=== PATIENT | female | born 1960 | race Caucasian/White ===

== ENCOUNTER 2025-02-19 08:41 | Observation (INO) | payer OTHER, SELFPAY ==
[2025-02-19] VITALS (19 sets, daily range): BP systolic 112–172; BP diastolic 43–84; PULSE 61–95; RESP 12–25; TEMP 36.6–36.7; O2SAT 97–100; BMI 30.4
--- NOTE | ~2025-02-19 | NM_ITS ---
EXAMINATION: NM edin stress w perfusion DATE: 02/20/2025 14:53 INDICATION: Chest pain which worsens with activity TECHNIQUE: Rest images were obtained following intravenous administration of 10.0 mCi Tc99m tetrofosm in (Myoview). The patient was infused intravenously with Lexiscan (Regadenoson). Then, 33.3 mCi Tc99m tetrofosmin (Myoview) was administered intravenously, and stress images were obtained, initially in the supine position with repeat post stress images obtained in the prone position. Data was reconstru cted into short axis and horizontal and vertical long axis SPECT images. Gated SPECT images were also obtained. COMPARISON: None. FINDINGS: Moderate to severe fixed perfusion defect at the apical inferior and mid anterior segments post stress imaging obtained in the prone position. There is mild reversible ischemia at the apical a nd apical inferior segment on the prone post stress images. Additional artifactual decreased activity on the imaging obtained in the supine position at the anterobasilar, mid inferior, apical lateral, m id and basilar anterolateral segments which normalizes with prone imaging. There is normal left vent ricular chamber size with mild global hypokinesis resulting in mild to moderately decreased left vent ricular ejection fraction measuring 33%. IMPRESSION: 1. Mild reversible ischemia at the apical and apical inferior segments. 2. Moderate to severe nonreversible infarct at the apical anterior and mid anterior segments. 2. Global hypokinesis with mild to moderately decreased left ventricular ejection fraction measuring 33%. Reviewed, dictated and finalized at location A. IMPRESSION: 1. Mild reversible ischemia at the apical and apical inferior segments. 2. Moderate to severe nonreversible infarct at the apical anterior and mid ante rior segments. 2. Global hypokinesis with mild to moderately decreased left ventricular ejecti on fraction measuring 33%.
--- NOTE | ~2025-02-19 | XR_ITS ---
Clinical Indication: Chest pain PA and lateral views of the chest: Comparison: 10/14/2008 Findings: The lungs are clear, without evidence of focal consolidation or pleural effusion. Evidence of prior CABG. Bones and soft tissues are unremarkable. Impression: Clear lungs. Status post CABG. Reviewed, dictated and finalized at location . Impression: Clear lungs. Status post CABG.
--- NOTE | 2025-02-19 08:49 | ECG_ITS ---
Test Date: 2025-02-19 08:49:40 Measurements Intervals [place] Rate: 57 P: 35 VT: 215 QRS: -63 QRSD: 134 T: 105 QT: 463 QTc: 453 Interpretive Statements SINUS BRADYCARDIA WITH FIRST DEGREE AV BLOCK INTRAVENTRICULAR CONDUCTION DELAY [130+ ms QRS DURATION] POSSIBLE ANTERIOR MYOCARDIAL INFARCTION , OF INDETERMINATE AGE [30 ms Q WAVE IN V3/V4, OR R < 0.2 mV IN V4] ABNORMAL ECG Electronically Signed On 02-19-2025 13:12:16 CDT by Kevin Boss M.D.
[2025-02-19 09:07] LABS: Basophils Absolute Auto 0.1 K/mm3 (0.0-0.1); Basophils Percent Auto 1.3 % (0.2-1.2); Eosinophils Absolute Auto 0.2 K/mm3 (0-0.3); Eosinophils Percent Auto 2.3 % (0-4.4); Immature Granulocyte Absolute 0.05 K/mm3 (0.00-0.031); Immature Granulocyte Percent A 0.5 % (0-0.5); Lymphocytes Absolute Auto 2.77 K/mm3 (0.9-3.2); Lymphocytes Percent Auto 30.3 % (18.3-44.2); Mean Corpuscular HGB Conc 31.3 g/dl (32-36); Mean Platelet Volume 10.9 fl (7.4-10.4); Monocytes Absolute Auto 0.8 K/mm3 (0.1-0.6); Monocytes Percent Auto 9.1 % (2.6-8.5); Neutrophils Absolute Auto 5.2 K/mm3 (1.3-6.7); Neutrophils Percent Auto 56.5 % (45.5-73.1); Platelet Count Result 410 k/mm3 (150-375); Red Cell Distribution Width 17.6 % (11.5-14.5); White Blood Count 9.1 K/mm3 (4.5-10.0)
[2025-02-19 09:18] LABS: INR 1.3; Partial Thromboplastin Time 24.2 Seconds (22.3-36.8); Prothrombin Time 16.5 Seconds (11.1-14.7)
--- OUTSIDE RECORDS SUMMARY | 2025-02-19 09:20 | XMS_ITS | Referral Summary ---
Author Organization [facility] [id number] Address [address] [place] [address] Care Team Providers Care Tab Card Press Operator Name Role Phone Amish Stewart MD Unavailable [phone] Valerie Gastelum DO Unavailable Encounters Date Type Department Care Team Description 12/25/2024 Telephone [facility] [address] [place] [id number] Lavern Lovell NP Request Call Back from Last 3 Months Allergies Active Allergy Reactions Criticality Noted Date Comments Aspirin Rash Medium 10/21/2018 Get sick and break out, throwing up Aspirin Nausea And Vomiting Low 05/26/2014 Latex Itching Low 05/26/2014 Medications bisacodyl (DULCOLAX) 10 mg suppositoryIndic ations:constipat ion Insert 1 suppository (10 mg total) into the rectum daily as needed for constipation. 30 suppository 1 10/25/[address] (PROTONIX) 40 mg EC tablet TAKE 1 TABLET (40 MG) BY MOUTH DAILY. 90 tablet 2 05/17/20 22 Active Additional Information Patient taking differently: 40 mg oral Daily, Reported on 11/01/2024 budesonide-formo teroL (SYMBICORT) 80-4.5 mcg/actuation inhaler Inhale 2 puffs 2 (two) times a day Rinse mouth with water after use. Do not swallow. 2 each 2 09/16/20 22 Active cetirizine (ZyrTEC) 10 mg tablet TAKE 1 TABLET BY MOUTH DAILY. 30 tablet 10/17/19 23 Active senna 8.6 mg tabletIndication s:Other constipation TAKE 2 TABLETS BY MOUTH DAILY 60 tablet 12/13/19 23 Active albuterol HFA (PROVENTIL HFA,VENTOLIN HFA,PROAIR HFA) 90 mcg/actuation inhalerIndicatio ns:Chronic cough INHALE 1 TO 2 PUFFS BY MOUTH EVERY 6 HOURS NEEDED FOR SHORTNESS OF BREATH 9 g 02/04/20 23 Active atorvastatin (LIPITOR) 80 mg tablet Take 1 tablet (80 mg total) by mouth daily Active empagliflozin (JARDIANCE) 10 mg tablet Take 1 tablet (10 mg total) by mouth daily Active acetaminophen (TYLENOL) 325 mg tablet Take 2 tablets (650 mg total) by mouth every 6 (six) hours as needed for pain Active ipratropium-albu teroL (DUO-NEB) 0.5-2.5 mg/3 mL nebulizer solution Take 3 mL by nebulization every 6 (six) hours as needed for wheezing or shortness of breath Active fluticasone propionate (FLONASE) 50 mcg/actuation nasal spray Administer 1 spray into each nostril daily as needed for rhinitis Active sacubitriL-valsa rtan (ENTRESTO) 24-26 mg tabletIndication s:chronic heart failure Take 1 tablet by mouth 2 (two) times a day Active clopidogreL (PLAVIX) 75 mg tablet Take 1 tablet (75 mg total) by mouth daily Active warfarin (COUMADIN) 3 mg tablet Take 1 tablet (3 mg total) by mouth 2 (two) times a week Active warfarin (COUMADIN) 3 mg tablet Take 1.5 tablets (4.5 mg total) by mouth 5 (five) times a week Active gabapentin (NEURONTIN) 100 mg capsule Take 1 capsule (100 mg total) by mouth 2 (two) times a day Active metoprolol XL (TOPROL-XL) 25 mg extended release tablet Take 0.5 tablets (12.5 mg total) by mouth daily 15 tablet 11/04/19 25 Active furosemide (LASIX) 20 mg tablet Take 1 tablet (20 mg total) by mouth daily 30 tablet 11/05/19 25 Active Active Problems Problem Noted Date Diagnosed Date CHF due to valvular disease 11/01/2024 Controlled type 2 diabetes m ellitus without complication, without long-term current use of insulin 11/01/2024 Dyslipidemia associated with type 2 diabetes katie litus 11/01/2024 Moderate persistent asthma without complication 11/01/2024 Gastroesophageal reflux disease without esophagi tis 11/01/2024 Morbid (severe) obesity due to excess calories 1 Assessment & Plan (07/06/2022 1:29 PM CDT): Discussed diet and lifestyle modifications to help lose weight with patient Immunization due 07/06/2022 Fall at home, subsequent encounter 07/06/2022 Assessment & Plan (07/06/2022 1:32 PM CDT): Patient had fall on 06/24/2022, had injuries to left knee and leg Continues to have shoulder pain Left foot in boot Discussed rest, using ice and heat to help with pain Advised to follow-up with orthopedics as scheduled Patient has small wound on left medial foot related to boot rubbing in area, advised to keep area clean, use Neosporin and bandage, advised to seek medical attention if worsening Schizophrenia 05/03/2022 Assessment & Plan (05/03/2022 1:00 PM CDT): Patient reports hearing voices for almost all of her life, denies any previous diagnosis of schizophrenia. Referral placed for Psychiatry evaluation and treatment Memory loss 05/03/2022 Assessment & Plan (05/03/2022 1:00 PM CDT): Patient reports recent memory loss, appears likely related to Psychiatry conditions and medications however patient worried that her mother had Alzheimer's disease and would like evaluation Referral placed for Neurology evaluation Weight loss, unintentional 11/23/2021 Assessment & Plan (11/23/2021 3:22 PM WELDING TEACHER): Patient recently had fit testing for stool which was normal Will get CT chest for lung cancer screening, mammogram previously ordered, patient advised to get this done as soon as possible Will also place referral for GI evaluation Screening for lung cancer 11/23/2021 Urinary frequency 11/23/2021 Assessment & Plan (11/23/2021 3:23 PM WELDING TEACHER): Will check UA with reflex to microscopy and culture If evidence of UTI will treat as needed Screening for thyroid disorder 11/23/2021 Assessment & Plan (11/23/2021 3:29 PM WELDING TEACHER): Will get routine lab testing today Discussed importance of getting proper vaccinations with patient including COVID vaccination. Patient will think about it Advised to see Gynecology for Pap smear Fit testing negative Will get screening CT scan for lung cancer Ophthalmology referral placed for a dilated eye exam Cough 2021 Assessment & Plan (2021 5:33 PM WELDING TEACHER): Patient has chronic cough with strong history of smoking requesting evaluation of cough Will get chest x-ray today Primary hypertension 2021 Assessment & Plan (07/06/2022 1:31 PM CDT): Condition stable. Symptoms controlled Continue current treatment with losartan, patient has not been monitoring blood pressure at home, advised to monitor regularly and inform clinic if remaining high Assessment & Plan (05/03/2022 12:59 PM CDT): Condition stable. Symptoms controlled Continue current treatment with hydrochlorothiazide and losartan Assessment & Plan (11/23/2021 3:11 PM WELDING TEACHER): Patient pressure high initially on presentation. Improved after patient stayed in room for bit Advised to make blood pressure log at home, may need to adjust medications depending on results Assessment & Plan (2021 5:34 PM WELDING TEACHER): Patient has chronic hypertension controlled with losartan however has high blood pressure on evaluation today Patient advised to make blood pressure log for the next week and call with result Patient previously had worsening cough with lisinopril and did not tolerate that Will need to adjust medications depending on blood pressure log Chronic bilateral low back pain without sciatica 09/15/2021 Assessment & Plan (11/23/2021 3:24 PM WELDING TEACHER): Records from [place] reviewed patient has MRI thoracic spine with that degenerative joint disease Patient was following with Orthopedics there but would wish to establish care with someone over here Will place referral for Orthopedics over here Assessment & Plan (2021 5:30 PM WELDING TEACHER): Records sent over from [place] clinic reviewed patient has back x-rays which show mild degenerative disease however no MRI present. Discussed with patient she says she definitely had an MRI recently Will obtain records of MRI Will continue Tylenol 1 g q.8 hours p.r.n. for pain Patient advised to continue ice packs as she feels these help her pain Assessment & Plan (09/15/2021 2:52 PM WELDING TEACHER): Patient has chronic lower back pain related to trauma and recently had imaging at [facility] We will obtain medical records Will start on tylenol 1 gm Q8H PRN for pain Other constipation 09/15/2021 Assessment & Plan (11/23/2021 3:10 PM WELDING TEACHER): Condition stable. Symptoms controlled Continue current treatment with senna and MiraLax Assessment & Plan (09/15/2021 2:51 PM WELDING TEACHER): Chronic constipation patient unable to have bowel movement unless she takes uses an enema(uses one 2 times a week) Will check thyroid function tests today Will also start on Senna 2 tablets daily and miralax daily to see if that helps her have regular bowel movements. Will likely need colonoscopy for evaluation of chronic constipation in future History of recurrent UTIs 09/15/2021 Assessment & Plan (09/15/2021 2:54 PM WELDING TEACHER): POC UA today did not show any evidence of infection Will test for UTI and treat as needed in future Thoracic radiculopathy 07/16/2021 Type 2 diabetes mellitus wit h hyperglycemia, without long-term current use of insulin 10/26/2018 Assessment & Plan (07/06/2022 1:08 PM CDT): Condition stable. Symptoms controlled Continue current treatment with glipizide Assessment & Plan (05/03/2022 12:58 PM CDT): Patient currently on glipizide, taking as directed will check HbA1c today Condition stable. Symptoms controlled Continue current treatment Assessment & Plan (11/23/2021 3:26 PM WELDING TEACHER): Condition stable. Symptoms controlled Continue current treatment with glipizide 5 mg daily Patient has significantly decreased sensation in lower extremities related to diabetes Discussed importance of proper foot care to prevent development of ulcers or infections or fractures with patient Assessment & Plan (2021 5:28 PM WELDING TEACHER): Condition stable. Symptoms controlled Continue current treatment with glipizide Will check HbA1c today Assessment & Plan (09/15/2021 2:52 PM WELDING TEACHER): Condition stable. Symptoms controlled per patient. Continue current treatment with glipizide Will get Hb A1C today Bipolar I disorder, current or most recent episode depressed, in partial remission 10/22/2018 Bipolar I disorder, current or most recent episode depressed, in partial remission 10/22/2018 Assessment & Plan (05/03/2022 12:59 PM CDT): Patient remains on medications for bipolar disorder, has not seen a psychiatrist recently, discussed importance of appropriate psychiatry evaluation patient will schedule appointment Assessment & Plan (11/23/2021 3:13 PM WELDING TEACHER): Condition stable. Symptoms controlled Continue current treatment Will place referral for Psychiatry evaluation Assessment & Plan (09/15/2021 2:47 PM WELDING TEACHER): Patient has been off medications since 2019 and is hesitant to see psychiatrist due to her previous experience with Latuda that made her confuse and she had muscle spasms as well After extensive discussion patient is willing to see psychiatrist for treatment and evaluation. Referral placed. Insomnia 11/13/2014 HLD (hyperlipidemia) 05/27/2014 Assessment & Plan (05/03/2022 12:59 PM CDT): Condition stable. Symptoms controlled Continue current treatment with atorvastatin Assessment & Plan (2021 5:31 PM WELDING TEACHER): Condition stable. Symptoms controlled without medication Will check lipid panel today Assessment & Plan (09/15/2021 3:49 PM WELDING TEACHER): Condition stable. Symptoms controlled Continue to monitor. Will check lipid panel today Resolved Problems Problem Noted Date Diagnosed Date Resolved Date Recurrent major depressive d isorder, in partial remission 11/23/2021 11/23/2021 Immunizations Immunization Administration Dates Next Due Influenza, Quadrivalent, Spl it, Intramuscular 06/26/2014 Influenza, Quadrivalent, Spl it, Preservative Free, Intramuscular 07/06/2022,06/10/2020,07/31/2019,06/13,07/14/2015 Influenza, Trivalent, IM (MDV) 07/02/2018 Influenza, Unspecified 07/02/2021 Social History Tobacco Use Types Packs/Day Years Used Date Smoking Tobacco: Former Cigarettes 1 51 Smokeless Tobacco: Never Tobacco Cessation:Counseling Given: Not Answered Comments:51 pack -father history lung cancer Alcohol Use Standard Drinks/Week Comments No 0 (1 standard drink = 0.6 oz pur e alcohol) [facility] Utilities Answer Date Recorded In the past 12 months has [employer], gas, oil, or water [employer] threatened to shut off services in your home? No 11/04/2024 Social Connection and Isolation Panel [NHANES] A nswer Date Recorded In a typical week, how many times do you talk on the phone with family, friends, or neighbors? Three times a week 11/04/2024 How often do you get togethe r with friends or relatives? Three times a week 11/04/2024 How often do you attend chur ch or tenriism services? Never 11/04/2024 Do you belong to any clubs o r organizations such as spiritism groups, unions, fraternal or athletic groups, or school groups? No 11/04/2024 How often do you attend meet ings of the clubs or organizations you belong to? Never 11/04/2024 Are you , , di vorced, , never , or living with a partner? Never 11/04/2024 AUDIT-C Answer Date Recorded Q1: How often do you have a drink containing alcohol? Never 11/04/2024 Q2: How many drinks containi ng alcohol do you have on a typical day when you are drinking? Patient does not drink Q3: How often do you have si x or more drinks on one occasion? Never 11/04/2024 Overall Financial Resource Strain (CARDIA) Answe r Date Recorded How hard is it for you to pa y for the very basics like food, housing, medical care, and heating? Not hard at all 11/04/2024 PHQ-2 Answer Date Recorded PHQ-2 Total Score (If total score is 3 or more points, staff should administer the PHQ-9) 0 05/03/2022 Hunger Vital Sign Answer Date Recorded Within the past 12 months, y ou worried that your food would run out before you got the money to buy more. Never true 11/04/19 25 Within the past 12 months, t he food you bought just didn't last and you didn't have money to get more. Never true 11/04/2024 PRAPARE - Transportation Answer Date Re corded In the past 12 months, has l ack of transportation kept you from medical appointments or from getting medications? No 11/2024 In the past 12 months, has l ack of transportation kept you from meetings, work, or from getting things needed for daily living? No 11/04/2024 Housing Stability Vital Sign Answer Gianfranco e Recorded In the last 12 months, was t here a time when you were not able to pay the mortgage or rent on time? No 11/04/2024 In the past 12 months, how m any times have you moved where you were living? 0 11/04/2024 At any time in the past 12 m [facility], were you homeless or living in a penitentiary (including now)? No 11/04/2024 Personal Safety Answer Date Recorded Have you ever been in or are you currently in a harmful physical or emotional relationship or is someone making you feel afraid or unsafe? Denies 11/01/2024 Comments No Sex and Gender Information Value Date Recorded Sex Assigned at Not on file Legal Sex Female 12:54 AM WELDING TEACHER Gender Identity Not on file Sexual Orientation Not on file Last Filed Vital Signs Vital Sign Reading Time Taken Comments Blood Pressure 129/79 11/04/2024 12:30 PM WELDING TEACHER Pulse 59 11/04/2024 12:30 PM WELDING TEACHER Temperature 36.4 C (97.6 F) 11/04/2024 12:30 PM WELDING TEACHER Respiratory Rate 18 11/04/2024 12:30 PM WELDING TEACHER Oxygen Saturation 94% 11/04/2024 12:30 PM WELDING TEACHER Inhaled Oxygen Concentration - - Weight 74.4 kg (164 lb 0.4 oz) 11/01/2024 12:40 AM WELDING TEACHER Height 160 cm (5' 3 ) 11/01/2024 12:40 AM WELDING TEACHER Body Mass Index 29.06 11/01/2024 12:40 AM WELDING TEACHER Plan of Treatment Not on file Procedures Procedure Name Priority Date/Time Associated Diagnosis Comments EGFR Routine 11/04/2024 1:32 AM WELDING TEACHER HEMOGLOBIN A1C Routine 05/03/2022 11:08 AM CDT Hypertension associated with diabetes (HCC) Type 2 diabetes mellitus with hyperglycemia, without long-term current use of insulin (HCC) LIPID PANEL Routine 05/03/2022 11:08 AM CDT Hypertension associated with diabetes (HCC) Type 2 diabetes mellitus with hyperglycemia, without long-term current use of insulin (HCC) HEPATITIS C ANTIBODY Routine 12/22/2021 10:50 AM CDT Need for hepatitis C screening test Encounter for preventive care ALBUMIN CREATININE RATIO, URINE Routine 11/23/2021 3:00 PM WELDING TEACHER Weight loss, unintentional from Last 3 Months or Most Recently Relevant to Health Maintenance Results * (ABNORMAL) eGFR (11/04/2024 1:32 AM WELDING TEACHER) eGFR 54(L) >=60 mL/min/1. 73 m2 Comment: Interpretive Data Reference Interval Normal >/= 90 mL/min/1.73m2 Mildly decreased* 60 - 89 mL/min/1.73m2 Mildly to moderately decreased 45 - 59 mL/min/1.73m2 Moderately to severely decreased 30 - 44 mL/min/1.73m2 Severely decreased 15 - 29 mL/min/1.73m2 Kidney Failure < 15 mL/min/1.73m2 *Relative to young adult level Estimated glomerular filtration rate is determined by the 2020 CKD-EPI equation recommended by the National Kidney Foundation (A Unifying Approach to GFR Estimation: Recommendations of the NKF-ASK Task Force on Reassessing the Inclusion of Race in Diagnosing Kidney Disease, JASN 202). The CKD-EPI equation should not be used for patients with unstable renal function and has not been validated in children and those over 70. Current interpretive data was last reviewed 2021. Blood 11/04/2024 1:32 AM WELDING TEACHER 11/04/2024 2:01 AM WELDING TEACHER Becka Napoles NP LAB BLOOD ORDERABLES Final Resul t Performing Organization Address City/[facility] Co de Phone Number [facility] [address] Department [place] [address] * (ABNORMAL) Hemoglobin A1c (05/03/2022 11:08 AM CDT) Hgb A1C 5.9(H) 4.0 - 5.6 % [facility] ([place]) Estimated Average Glucose 123 mg/dL [facility] ([place]) Comment: The ADA recommends reporting an estimated Average Glucose (eAG) with all Hemoglobin A1c results using the equation derived from a study of 507 normal and diabetic adults. Minority populations were underrepresented and children were not included. (Diabetes Care 31:3432-6703, 2008). The eAG is not equivalent to a fasting glucose. Blood 05/03/2022 11:0 8 AM CDT 05/03/2022 12:15 PM CDT Mojgan Cartwright MD LAB BLOOD ORDERABLES Final Resul t [facility] ([place]) [address] Department of Laboratories [place], [place] [id number] * Lipid panel (05/03/2022 11:08 AM CDT) Pathologist [facility] Cholesterol 176 30 - 199 mg/dL [facility] ([place]) Comment: Interpretive Data Ages < or = 19 years Acceptable: <170 mg/dL Borderline high: 170-199 mg/dL High: >or= 200 mg/dL Ages > or = 20 years Desirable: <200 mg/dL Borderline high: 200-239 mg/dL High: >or= 240 mg/dL Literature References: 1. Expert Panel on Integrated Guidelines for Cardiovascular Health and Risk Reduction in Children and Adolescents. Pediatrics 2011;128:S213 2. NCEP Expert Panel. Circulation 2004;110:227 Current Interpretive Data was last revised on 2018. Triglycerides 106 <=149 mg/dL [facility] ([place]) Comment: Interpretive Data Ages < or = 9 years Acceptable: <75 mg/dL Borderline high: 75-99 mg/dL High: >or= 100 mg/dL Ages 10 to 20 years Acceptable: <90 mg/dL Borderline high: 90-129 mg/dL High: >or= 130 mg/dL Ages > or = 20 years Desirable: <150 mg/dL Borderline high: 150-199 mg/dL High: 200-499 mg/dL Very high: >or= 499 mg/dL Literature References: 1. Expert Panel on Integrated Guidelines for Cardiovascular Health and Risk Reduction in Children and Adolescents. Pediatrics 2011;128:S213 2. NCEP Expert Panel. Circulation 2004;110:227 Current Interpretive Data was last revised on 2018. HDL 54 >=40 mg/dL [facility] ([place]) Comment: Interpretive Data Ages < or = 19 years Acceptable: >45 mg/dL Borderline low: 40-45 mg/dL Low: <40 mg/dL Ages > or = 20 years Desirable: >or= 60 mg/dL Low: <40 mg/dL Literature References: 1. Expert Panel on Integrated Guidelines for Cardiovascular Health and Risk Reduction in Children and Adolescents. Pediatrics 2011;128:S213 2. NCEP Expert Panel. Circulation 2004;110:227 Current Interpretive Data was last revised on 2018. LDL, calculated 101 <=129 mg/dL [facility] ([place]) Comment: Interpretive Data Ages < or = 19 years Acceptable: <110 mg/dL Borderline high: 110-129 mg/dL High: >or= 130 mg/dL Ages > or = 20 years Optimal: <100 mg/dL Near optimal: 100-129 mg/dL Borderline high: 130-159 mg/dL High: >160 mg/dL Literature References: 1. Expert Panel on Integrated Guidelines for Cardiovascular Health and Risk Reduction in Children and Adolescents. Pediatrics 2011;128:S213 2. NCEP Expert Panel. Circulation 2004;110:227 Current Interpretive Data was last revised on 2018. Non-HDL Cholesterol 122 mg/dL [facility] ([place]) Comment: Interpretive Data Ages < or = 19 years Acceptable: <120 mg/dL Borderline high: 120-144 mg/dL High: >145 mg/dL Ages > or = 20 years When triglycerides are >200 mg/dL, Non-HDL cholesterol is a secondary target of therapy with treatment goals that are 30 mg/dL greater than the LDL cholesterol target. Literature References: 1. Expert Panel on Integrated Guidelines for Cardiovascular Health and Risk Reduction in Children and Adolescents. Pediatrics 2011;128:S213 2. NCEP Expert Panel. Circulation 2004;110:227 Current Interpretive Data was last revised on 2018. Chol/HDL ratio 3 [facility] Gabriela [facility] YANC[facility]) Blood 05/03/2022 11:0 8 AM CDT 05/03/2022 12:15 PM CDT Mojgan Cartwright MD LAB BLOOD ORDERABLES Final Resul t [facility] ([place]) [address] Department [place] [address] * Hepatitis C antibody (12/22/2021 10:50 AM CDT) Hep C Ab Nonreactive Nonreactive [facility] [place]) Comment: Interpretive Data Nonreactive: Antibodies to HCV not detected. Does NOT exclude the possibility of recent exposure to HCV. Equivocal: Equivocal for HCV antibodies. Supplemental molecular testing will be automatically performed to determine infection status in accordance with current CDC screening recommendations. Reactive: Positive for HCV antibodies. This may represent current or past HCV infection. Supplemental molecular testing will be automatically performed to determine current infection status in accordance with current CDC screening recommendations. Interpretive data was last revised on 2019. Testing performed by: [facility], [address], [place]., [address] Blood 12/22/2021 10:5 0 AM CDT 12/22/2021 6:30 PM CDT Mojgan Cartwright MD LAB MICROBIOLOGY - GENERAL ORDER JAYSON Final Result Performing Organization Address [facility]/ZIP Co de Phone Number [facility] ([place]) [address] [place] [address] Department [place] [address] * Albumin Creatinine Ratio, Urine (11/23/2021 3:00 PM WELDING TEACHER) Albumin Ur 620.0 mg/L [facility] ([place]) Comment: Interpretive Data No reference range established. Current interpretive data was last revised 2019. Creatinine Ur 240.5 mg/dL [facility] ([place]) Comment: Interpretive Data No reference range established. Current interpretive data was last revised 2019. Albumin Creatinine Ratio, Ur See Comment 1 - 29 [facility] ([place]) Comment:Unable to calculate. Urine 11/23/2021 3:00 PM WELDING TEACHER 11/23/2021 4:33 PM WELDING TEACHER Mojgan Cartwright MD LAB URINE ORDERABLES Final Resul t Performing Organization Address City/[facility]/ZIP Co de Phone Number [facility] ([place]) [address] [place] [address] Department [place] [address] from Last 3 Months or Most Recently Relevant to Health Maintenance [place] [employer] [place] [employer] [place] [facility] [employer] [place] [facility] Advance Directives For more information, please contact: [phone] * Full Code (Latest Code Status on File) Date Activated Date Inactivated Comments 11/01/2024 5:17 AM 11/04/2024 6:04 PM * Full Code Date Activated Date Inactivated Comments 10/21/2018 11:13 AM 10/25/2018 5:44 PM Care Teams Tab Card Press Operator Relationship Specialty Start Date End Date Amish Stewart MD 09/06/21 Valerie Gastelum DO [address] [facility] [address] [place] [address] Consulting Physician Cardiology 11/04/24
--- OUTSIDE RECORDS SUMMARY | 2025-02-19 09:20 | XMS_ITS | CONTINUITY OF CARE DOCUMENT ---
Author Name karina collins Address Unknown Organization [facility] Address [address] [address] [place] [address] Phone [phone] Care Team Providers Care Jinriksha Driver Name Role Phone Ramy Lopez MD Unavailable [phone] PRATIBHA FARAH MD Unavailable NHUNG DUMONT, MICHELLE Unavailable Unavailable INSURANCE PROVIDERS Payer name Policy type / Coverage type [place] [employer] [place] [employer] Medicaid [id number]
--- OUTSIDE RECORDS SUMMARY | 2025-02-19 09:20 | XMS_ITS | Clinical Summary ---
Author Organization [facility] [id number] Address [address] [place] [address] Care Team Providers Care Medical Doctor Md/Medical Director Name Role Phone Amish Stewart MD Unavailable [phone] Valerie Gastelum DO Unavailable [phone] Allergies Active Allergy Reactions Criticality Noted Date [...] 11/23/2021 Assessment & Plan (11/23/2021 3:22 PM PUBLIC SAFETY DISPATCHER): Patient recently had fit testing for stool which was normal Will get CT chest for lung cancer screening, mammogram previously ordered, patient advised to get this done as soon as possible Will also place referral for GI evaluation Screening for lung cancer 11/23/2021 Urinary frequency 11/23/2021 Assessment & Plan (11/23/2021 3:23 PM PUBLIC SAFETY DISPATCHER): Will check UA with reflex to microscopy and culture If evidence of UTI will treat as needed Screening for thyroid disorder 11/23/2021 Assessment & Plan (11/23/2021 3:29 PM PUBLIC SAFETY DISPATCHER): Will get routine lab testing today Discussed importance of getting proper vaccinations with patient including COVID vaccination. Patient will think about it Advised to see Gynecology for Pap smear Fit testing negative Will get screening CT scan for lung cancer Ophthalmology referral placed for a dilated eye exam Cough 2021 Assessment & Plan (2021 5:33 PM PUBLIC SAFETY DISPATCHER): Patient has chronic cough with strong history [...] losartan Assessment & Plan (11/23/2021 3:11 PM PUBLIC SAFETY DISPATCHER): Patient pressure high initially on presentation. Improved after patient stayed in room for bit Advised to make blood pressure log at home, may need to adjust medications depending on results Assessment & Plan (2021 5:34 PM PUBLIC SAFETY DISPATCHER): Patient has chronic hypertension controlled with losartan [...] 09/15/2021 Assessment & Plan (11/23/2021 3:24 PM PUBLIC SAFETY DISPATCHER): Records from [place] reviewed patient has MRI thoracic spine with that degenerative joint disease Patient was following with Orthopedics there but would wish to establish care with someone over here Will place referral for Orthopedics over here Assessment & Plan (2021 5:30 PM PUBLIC SAFETY DISPATCHER): Records sent over from [facility] reviewed patient has back x-rays which show mild degenerative disease however no MRI present. Discussed with patient she says she definitely had an MRI recently Will obtain records of MRI Will continue Tylenol 1 g q.8 hours p.r.n. for pain Patient advised to continue ice packs as she feels these help her pain Assessment & Plan (09/15/2021 2:52 PM PUBLIC SAFETY DISPATCHER): Patient has chronic lower back pain related to trauma and recently had imaging at [facility] We will obtain medical records Will start on tylenol 1 gm Q8H PRN for pain Other constipation 09/15/2021 Assessment & Plan (11/23/2021 3:10 PM PUBLIC SAFETY DISPATCHER): Condition stable. Symptoms controlled Continue current treatment with senna and MiraLax Assessment & Plan (09/15/2021 2:51 PM PUBLIC SAFETY DISPATCHER): Chronic constipation patient unable to have bowel [...] 09/15/2021 Assessment & Plan (09/15/2021 2:54 PM PUBLIC SAFETY DISPATCHER): POC UA today did not show any [...] treatment Assessment & Plan (11/23/2021 3:26 PM PUBLIC SAFETY DISPATCHER): Condition stable. Symptoms controlled Continue current treatment with glipizide 5 mg daily Patient has significantly decreased sensation in lower extremities related to diabetes Discussed importance of proper foot care to prevent development of ulcers or infections or fractures with patient Assessment & Plan (2021 5:28 PM PUBLIC SAFETY DISPATCHER): Condition stable. Symptoms controlled Continue current treatment with glipizide Will check HbA1c today Assessment & Plan (09/15/2021 2:52 PM PUBLIC SAFETY DISPATCHER): Condition stable. Symptoms controlled per patient. Continue [...] appointment Assessment & Plan (11/23/2021 3:13 PM PUBLIC SAFETY DISPATCHER): Condition stable. Symptoms controlled Continue current treatment Will place referral for Psychiatry evaluation Assessment & Plan (09/15/2021 2:47 PM PUBLIC SAFETY DISPATCHER): Patient has been off medications since 2019 [...] atorvastatin Assessment & Plan (2021 5:31 PM PUBLIC SAFETY DISPATCHER): Condition stable. Symptoms controlled without medication Will check lipid panel today Assessment & Plan (09/15/2021 3:49 PM PUBLIC SAFETY DISPATCHER): Condition stable. Symptoms controlled Continue to monitor. Will check lipid panel today Resolved Problems Problem Noted Date Diagnosed Date Resolved Date Recurrent major depressive d celestino, in partial remission 11/23/2021 11/23/2021 Encounters Date Type Department Care Team Description 12/25/2024 Telephone [facility] [address] [place] [phone] Lavern Lovell NP Request Call Back from Last 3 Months Immunizations Immunization Administration Dates Next Due Influenza, Quadrivalent, Spl it, Intramuscular 06/26/2014 Influenza, Quadrivalent, Spl it, Preservative Free, Intramuscular 07/06/2022,06/10/2020,07/31/2019,06/13,07/14/2015 Influenza, Trivalent, IM (MDV) 07/02/2018 Influenza, Unspecified 07/02/2021 Surgical History Surgery Date Site/Laterality Comments MASTECTOMY Left FINGER SURGERY MOLE REMOVAL BREAST LUMPECTOMY Left HYSTERECTOMY Medical History Medical History Date Comments Bipolar disorder (HCC) Cancer (HCC) hx left ovary ca ncer (removed) Anxiety Bulimia nervosa used to have, no t anymore Chronic pain disorder Head injury used to fall lorna n stairs a lot Peripheral neuropathy Panic attack PTSD (post-traumatic stress disorder) Sleep difficulties Substance abuse (HCC) only timmiguel migdaliamelyssa Suicide attempt (HCC) overdoses DM (diabetes mellitus) (HCC) Hyperlipidemia Depression Hypertension Obesity Schizophrenia (HCC) 05/03/2022 Memory loss 05/03/2022 Family History Medical History Relation Name Comments Alcohol abuse Father Depression Mother Bipolar disorder Other Bipolar disorder Sister Relation Name Status Comments Father Mother Other Sister Social History Tobacco Use Types Packs/Day Years Used Date Smoking Tobacco: Former Cigarettes 1 51 Smokeless Tobacco: Never Tobacco Cessation:Counseling Given: Not Answered Comments:51 pack -father history lung cancer Alcohol Use Standard Drinks/Week Comments No 0 (1 standard drink = 0.6 oz pur e alcohol) [facility] Utilities Answer Date Recorded In the past 12 months has th e electric, gas, oil, or water company threatened to shut off services in your [...] often do you attend chur ch or nondenominational services? Never 11/04/2024 Do you belong to any clubs o r organizations such as yazidism groups, unions, fraternal or athletic groups, or [...] any time in the past 12 m [facility], were you homeless or living in a alf (including now)? No 11/04/2024 Personal Safety Answer Date Recorded Have you ever been in or are you currently in a harmful physical or emotional relationship or is someone making you feel afraid or unsafe? Denies 11/01/2024 Comments No Sex and Gender Information Value Date Recorded Sex Assigned at Not on file Legal Sex Female 12:54 AM PUBLIC SAFETY DISPATCHER Gender Identity Not on file Sexual Orientation Not on file Obstetrics History Last Filed Vital Signs Vital Sign Reading Time Taken Comments Blood Pressure 129/79 11/04/2024 12:30 PM PUBLIC SAFETY DISPATCHER Pulse 59 11/04/2024 12:30 PM PUBLIC SAFETY DISPATCHER Temperature 36.4 C (97.6 F) 11/04/2024 12:30 PM PUBLIC SAFETY DISPATCHER Respiratory Rate 18 11/04/2024 12:30 PM PUBLIC SAFETY DISPATCHER Oxygen Saturation 94% 11/04/2024 12:30 PM PUBLIC SAFETY DISPATCHER Inhaled Oxygen Concentration - - Weight 74.4 kg (164 lb 0.4 oz) 11/01/2024 12:40 AM PUBLIC SAFETY DISPATCHER Height 160 cm (5' 3 ) 11/01/2024 12:40 AM PUBLIC SAFETY DISPATCHER Body Mass Index 29.06 11/01/2024 12:40 AM PUBLIC SAFETY DISPATCHER Plan of Treatment Health Maintenance Due Date Last Done Comments Colon Cancer Screening-Colonoscopy 1960 Osteoporosis Screening-Bone Density Scan 1960 Dilated Eye Exam 1958 DTaP/Tdap/Td Vaccine (1 - Tdap) 1969 Hepatitis B Screening 1976 Zoster Vaccine (1 of 2) 2008 Pneumococcal vaccine 65+ (2 of 2 - PCV) 09/20/2013 09/20/2012 Breast Cancer Screening-Mammogram 08/06/2015 014 Albumin Creatinine Ratio, Urine 11/23/2022 2 Foot Exam 11/23/2022 11/23/2021 Depression Screening 05/03/2023 05/03/2022, 11/23/2021, 2021, Additional history exists Well Visit 65+ 2023 11/23/2021 Influenza Vaccine (#1) 2024 , 07/02/2021, 06/10/2020, Additional history exists Hemoglobin A1C 02/04/2025 08/07/2024, 11/30, 05/03/2022, Additional history exists Lipid Panel 08/07/2025 08/07/2024, 11/2021, 12/22/2021, Additional history exists Fall Risk Assessment 11/04/2025 11/04/2024, 05/03/2022, 11/23/2021, Additional history exists eGFR 11/04/2025 11/04/2024, 11/2024, 11/02/2024, Additional history exists Hepatitis C Screening Completed 12/22/2021, 022 Procedures Procedure Name Priority Date/Time Associated Diagnosis Comments EGFR Routine 11/04/2024 1:32 AM PUBLIC SAFETY DISPATCHER HEMOGLOBIN A1C Routine 05/03/2022 11:08 AM CDT [...] CREATININE RATIO, URINE Routine 11/23/2021 3:00 PM PUBLIC SAFETY DISPATCHER Weight loss, unintentional from Last 3 Months or Most Recently Relevant to Health Maintenance Results * (ABNORMAL) eGFR (11/04/2024 1:32 AM PUBLIC SAFETY DISPATCHER) eGFR 54(L) >=60 mL/min/1. 73 m2 Comment: [...] of Race in Diagnosing Kidney Disease, JASN 2020). The CKD-EPI equation should not be used for patients with unstable renal function and has not been validated in children and those over 70. Current interpretive data was last reviewed 2021. Blood 11/04/2024 1:32 AM PUBLIC SAFETY DISPATCHER 11/04/2024 2:01 AM PUBLIC SAFETY DISPATCHER Becka Napoles NP LAB BLOOD ORDERABLES Final Resul t Performing Organization Address City/[facility]/ZIP Co de Phone Number [facility] [address] Department [place] [address] * (ABNORMAL) Hemoglobin A1c (05/03/2022 11:08 AM CDT) Hgb A1C 5.9(H) 4.0 - 5.6 % [facility] Estimated Average Glucose 123 mg/dL [facility]) Comment: The ADA recommends reporting an estimated Average Glucose (eAG) with all Hemoglobin A1c results using the equation derived from a study of 507 normal and diabetic adults. Minority populations were underrepresented and children were not included. (Diabetes Care 31:2115-3897, 2008). The eAG is not equivalent to a fasting glucose. Blood 05/03/2022 11:0 8 AM CDT 05/03/2022 12:15 PM CDT Mojgan Cartwright MD LAB BLOOD ORDERABLES Final Resul t [facility] ([place]) [address] Department [place] [address] * Lipid panel (05/03/2022 11:08 AM CDT) Cholesterol 176 30 - 199 mg/dL [facility] Comment: Interpretive Data Ages < [...] on 2018. Triglycerides 106 <=149 mg/dL [facility]) Comment: Interpretive Data Ages < [...] revised on 2018. HDL 54 >=40 mg/dL [facility] ([place]) Comment: Interpretive Data Ages < or [...] 2018. LDL, calculated 101 <=129 mg/dL [facility]) Comment: Interpretive Data Ages < [...] on 2018. Non-HDL Cholesterol 122 mg/dL [facility] Comment: Interpretive Data Ages < [...] last revised on 2018. Chol/HDL ratio 3 [facility] Gabriela [facility]) Blood 05/03/2022 11:0 8 AM CDT 05/03/2022 12:15 PM CDT us Mojgan Cartwright MD LAB BLOOD ORDERABLES Final Resul t Performing Organization Address City/State/[facility] Co de Phone Number [facility] [address] [facility] Department [place] [address] * Hepatitis C antibody (12/22/2021 10:50 AM CDT) Hep C Ab Nonreactive Nonreactive [facility] [place]) Comment: Interpretive Data Nonreactive: Antibodies to HCV [...] last revised on 2019. Testing performed by: [facility], [facility] [place]., [address] Blood 12/22/2021 10:5 0 AM CDT 12/22/2021 6:30 PM CDT Mojgan Cartwright MD LAB MICROBIOLOGY - GENERAL ORDER JAYSON Final Result Performing Organization Address [facility] de Phone Number [facility] [address] [facility] Department [place] [address] * Albumin Creatinine Ratio, Urine (11/23/2021 3:00 PM PUBLIC SAFETY DISPATCHER) Albumin Ur 620.0 mg/L [facility] Comment: Interpretive Data No reference range established. Current interpretive data was last revised 2019. Creatinine Ur 240.5 mg/dL [facility]) Comment: Interpretive Data No reference range established. Current interpretive data was last revised 2019. Albumin Creatinine Ratio, Ur See Comment 1 - 29 [facility]) Comment:Unable to calculate. Urine 11/23/2021 3:00 PM PUBLIC SAFETY DISPATCHER 11/23/2021 4:33 PM PUBLIC SAFETY DISPATCHER Mojgan Cartwright MD LAB URINE ORDERABLES Final Resul t Performing Organization Address [facility] Co de Phone Number [facility] [address] [facility] [place] [address] from Last 3 Months or Most Recently Relevant to Health Maintenance Insurance [place] [employer] [id number] [facility] [address] [facility] [address] [employer] Advance Directives For more information, please contact: [phone] * Full Code (Latest Code Status on File) Date Activated Date Inactivated Comments 11/01/2024 5:17 AM 11/04/2024 6:04 PM * Full Code Date Activated Date Inactivated Comments 10/21/2018 11:13 AM 10/25/2018 5:44 PM Care Teams Medical Doctor Md/Medical Director Relationship Specialty Start Date End Date Amish Stewart MD 09/06/21 Valerie Gastelum DO [address] [place] [address] Consulting Physician Cardiology 11/04/24
[2025-02-19] MEDS: NITROGLYCERIN SL 0.4 MG TABLET SUBLINGUAL (10:06)
--- NOTE | 2025-02-19 10:09 | PC.NURSE ---
1st nitro admin (@ 1006): HR 84 BP 121/84 Chest pain 6/10 2nd nitro admin (@ 1011): HR 92 BP 126/77 Chest pain 5/10 3rd nitro admin (@ 1016): HR 91 BP 113/73 Chest pain 3/10 5 min post 3rd nitro admin (@ 1021): HR 92 BP 117/76 Chest pain 2/10
--- OUTSIDE RECORDS SUMMARY | 2025-02-19 10:14 | XMS_ITS | Clinical Summary ---
Author Organization [facility] [address] Address [address] [place] [address] Care Team Providers Care Power Ballast Machine Operator Name Role Phone Amish Stewart MD Unavailable [phone] Valerie Gastelum DO Unavailable Allergies Active Allergy Reactions Criticality Noted Date [...] 11/23/2021 Assessment & Plan (11/23/2021 3:22 PM GREY IRON MOLDER): Patient recently had fit testing for stool which was normal Will get CT chest for lung cancer screening, mammogram previously ordered, patient advised to get this done as soon as possible Will also place referral for GI evaluation Screening for lung cancer 11/23/2021 Urinary frequency 11/23/2021 Assessment & Plan (11/23/2021 3:23 PM GREY IRON MOLDER): Will check UA with reflex to microscopy and culture If evidence of UTI will treat as needed Screening for thyroid disorder 11/23/2021 Assessment & Plan (11/23/2021 3:29 PM GREY IRON MOLDER): Will get routine lab testing today Discussed importance of getting proper vaccinations with patient including COVID vaccination. Patient will think about it Advised to see Gynecology for Pap smear Fit testing negative Will get screening CT scan for lung cancer Ophthalmology referral placed for a dilated eye exam Cough 2021 Assessment & Plan (2021 5:33 PM GREY IRON MOLDER): Patient has chronic cough with strong history [...] losartan Assessment & Plan (11/23/2021 3:11 PM GREY IRON MOLDER): Patient pressure high initially on presentation. Improved after patient stayed in room for bit Advised to make blood pressure log at home, may need to adjust medications depending on results Assessment & Plan (2021 5:34 PM GREY IRON MOLDER): Patient has chronic hypertension controlled with losartan [...] 09/15/2021 Assessment & Plan (11/23/2021 3:24 PM GREY IRON MOLDER): Records from [place] reviewed patient has MRI thoracic spine with that degenerative joint disease Patient was following with Orthopedics there but would wish to establish care with someone over here Will place referral for Orthopedics over here Assessment & Plan (2021 5:30 PM GREY IRON MOLDER): Records sent over from [facility] reviewed patient has back x-rays which show mild degenerative disease however no MRI present. Discussed with patient she says she definitely had an MRI recently Will obtain records of MRI Will continue Tylenol 1 g q.8 hours p.r.n. 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 Symptoms controlled Continue current treatment with senna and MiraLax Assessment & Plan (09/15/2021 2:51 PM GREY IRON MOLDER): Chronic constipation patient unable to have bowel [...] 09/15/2021 Assessment & Plan (09/15/2021 2:54 PM GREY IRON MOLDER): POC UA today did not show any [...] treatment Assessment & Plan (11/23/2021 3:26 PM GREY IRON MOLDER): Condition stable. Symptoms controlled Continue current treatment with glipizide 5 mg daily Patient has significantly decreased sensation in lower extremities related to diabetes Discussed importance of proper foot care to prevent development of ulcers or infections or fractures with patient Assessment & Plan (2021 5:28 PM GREY IRON MOLDER): Condition stable. Symptoms controlled Continue current treatment with glipizide Will check HbA1c today Assessment & Plan (09/15/2021 2:52 PM GREY IRON MOLDER): Condition stable. Symptoms controlled per patient. Continue [...] appointment Assessment & Plan (11/23/2021 3:13 PM GREY IRON MOLDER): Condition stable. Symptoms controlled Continue current treatment Will place referral for Psychiatry evaluation Assessment & Plan (09/15/2021 2:47 PM GREY IRON MOLDER): Patient has been off medications since 2019 [...] atorvastatin Assessment & Plan (2021 5:31 PM GREY IRON MOLDER): Condition stable. Symptoms controlled without medication Will check lipid panel today Assessment & Plan (09/15/2021 3:49 PM GREY IRON MOLDER): Condition stable. Symptoms controlled Continue to monitor. Will check lipid panel today Resolved Problems Problem Noted Date Diagnosed Date Resolved Date Recurrent major depressive d celestino, in partial remission 11/23/2021 11/23/2021 Encounters Date Type Department Care Team Description 12/25/2024 Telephone [facility] [address] [place] [phone] Lavern Lovell NP Request Call Back from [...] = 0.6 oz pur e alcohol) [facility] Utilities Answer Date Recorded In the [...] often do you attend chur ch or taoism services? Never 11/04/2024 Do you belong to any clubs o r organizations such as adventism groups, unions, fraternal or athletic groups, or [...] any time in the past 12 m [facility], were you homeless or living in a intermediate (including now)? No 11/04/2024 Personal Safety Answer Date Recorded Have you ever been in or are you currently in a harmful physical or emotional relationship or is someone making you feel afraid or unsafe? Denies 11/01/2024 Comments No Sex and Gender Information Value Date Recorded Sex Assigned at Not on file Legal Sex Female 12:54 AM GREY IRON MOLDER Gender Identity Not on file Sexual Orientation Not on file Obstetrics History Last Filed Vital Signs Vital Sign Reading Time Taken Comments Blood Pressure 129/79 11/04/2024 12:30 PM GREY IRON MOLDER Pulse 59 11/04/2024 12:30 PM GREY IRON MOLDER Temperature 36.4 C (97.6 F) 11/04/2024 12:30 PM GREY IRON MOLDER Respiratory Rate 18 11/04/2024 12:30 PM GREY IRON MOLDER Oxygen Saturation 94% 11/04/2024 12:30 PM GREY IRON MOLDER Inhaled Oxygen Concentration - - Weight 74.4 kg (164 lb 0.4 oz) 11/01/2024 12:40 AM GREY IRON MOLDER Height 160 cm (5' 3 ) 11/01/2024 12:40 AM GREY IRON MOLDER Body Mass Index 29.06 11/01/2024 12:40 AM GREY IRON MOLDER Plan of Treatment Health Maintenance Due Date [...] Diagnosis Comments EGFR Routine 11/04/2024 1:32 AM GREY IRON MOLDER HEMOGLOBIN A1C Routine 05/03/2022 11:08 AM CDT [...] CREATININE RATIO, URINE Routine 11/23/2021 3:00 PM GREY IRON MOLDER Weight loss, unintentional from Last 3 Months or Most Recently Relevant to Health Maintenance Results * (ABNORMAL) eGFR (11/04/2024 1:32 AM GREY IRON MOLDER) eGFR 54(L) >=60 mL/min/1. 73 m2 Comment: [...] last reviewed 2021. Blood 11/04/2024 1:32 AM GREY IRON MOLDER 11/04/2024 2:01 AM GREY IRON MOLDER Becka Napoles NP LAB BLOOD ORDERABLES Final Resul t Performing Organization Address City/[facility]/ZIP Co de Phone Number [facility] [address] Department [place] [address] * (ABNORMAL) Hemoglobin A1c (05/03/2022 11:08 AM CDT) Hgb A1C 5.9(H) 4.0 - 5.6 % [facility] ([place]) Estimated Average Glucose 123 mg/dL [facility] ([place]) Comment: The ADA recommends reporting an estimated Average Glucose (eAG) with all Hemoglobin A1c results using the equation derived from a study of 507 normal and diabetic adults. Minority populations were underrepresented and children were not included. (Diabetes Care 31:4746-8128, 2008). The eAG is not equivalent to a fasting glucose. Blood 05/03/2022 11:0 8 AM CDT 05/03/2022 12:15 PM CDT Mojgan Cartwright MD LAB BLOOD ORDERABLES Final Resul t [facility] ([place]) [address] Department [place] [address] * Lipid panel (05/03/2022 11:08 AM CDT) Cholesterol 176 30 - 199 mg/dL [facility] ([place]) Comment: Interpretive Data Ages < [...] revised on 2018. Triglycerides 106 <=149 mg/dL [facility] ([place]) Comment: Interpretive Data Ages < [...] revised on 2018. HDL 54 >=40 mg/dL [facility] ([place]) Comment: Interpretive Data Ages [...] on 2018. LDL, calculated 101 <=129 mg/dL [facility]) Comment: Interpretive Data Ages < [...] revised on 2018. Non-HDL Cholesterol 122 mg/dL [facility] ([place]) Comment: Interpretive Data Ages < [...] last revised on 2018. Chol/HDL ratio 3 [facility] Gabriela [facility] ([place]) Blood 05/03/2022 11:0 8 AM CDT 05/03/2022 12:15 PM CDT us Mojgan Cartwright MD LAB BLOOD ORDERABLES Final Resul t Performing Organization Address City/State/[facility] Co de Phone Number [facility] ([place]) [address] Department [place] [address] * Hepatitis C antibody (12/22/2021 10:50 AM CDT) Hep C Ab Nonreactive Nonreactive [facility] [place]) Comment: Interpretive Data Nonreactive: Antibodies [...] last revised on 2019. Testing performed by: [facility], [facility][note 3][address] [place]., [address] Blood 12/22/2021 10:5 0 AM CDT 12/22/2021 6:30 PM CDT Mojgan Cartwright MD LAB MICROBIOLOGY - GENERAL ORDER JAYSON Final Result Performing Organization Address [facility] de Phone Number [facility] ([place]) [address] Department [place] [address] * Albumin Creatinine Ratio, Urine (11/23/2021 3:00 PM GREY IRON MOLDER) Albumin Ur 620.0 mg/L IVY [facility] ([place]) Comment: Interpretive Data No reference range established. Current interpretive data was last revised 2019. Creatinine Ur 240.5 mg/dL [facility] ([place]) Comment: Interpretive Data No reference range established. Current interpretive data was last revised 2019. Albumin Creatinine Ratio, Ur See Comment 1 - 29 [facility] ([place]) Comment:Unable to calculate. Urine 11/23/2021 3:00 PM GREY IRON MOLDER 11/23/2021 4:33 PM GREY IRON MOLDER Mojgan Cartwright MD LAB URINE ORDERABLES Final Resul t Performing Organization Address [facility] Co de Phone Number [facility] [address] [place] [address] from Last 3 Months or Most Recently Relevant to Health Maintenance Insurance [place] [employer] [id number] [facility] [address] [facility] [address] [employer] Advance Directives For more information, please contact: [phone] * Full Code (Latest Code Status on File) Date Activated Date Inactivated Comments 11/01/2024 5:17 AM 11/04/2024 6:04 PM * Full Code Date Activated Date Inactivated Comments 10/21/2018 11:13 AM 10/25/2018 5:44 PM Care Teams Power Ballast Machine Operator Relationship Specialty Start Date End Date Amish Stewart MD 09/06/21 Valerie Gastelum DO [address] [facility] [address] [place] [address] Consulting Physician Cardiology 11/04/24
--- OUTSIDE RECORDS SUMMARY | 2025-02-19 10:14 | XMS_ITS | Referral Summary ---
Author Organization [facility] [address] Address [address] [place] [address] Care Team Providers Care Hook Up Driver Name Role Phone Amish Stewart MD Unavailable [phone] Valerie Gastelum DO Unavailable Encounters Date Type Department Care Team Description 12/25/2024 Telephone [facility] [address] [place] [phone] Lavern Lovell NP Request Call Back from [...] 11/23/2021 Assessment & Plan (11/23/2021 3:22 PM TYPECASTING MACHINE OPERATOR): Patient recently had fit testing for stool which was normal Will get CT chest for lung cancer screening, mammogram previously ordered, patient advised to get this done as soon as possible Will also place referral for GI evaluation Screening for lung cancer 11/23/2021 Urinary frequency 11/23/2021 Assessment & Plan (11/23/2021 3:23 PM TYPECASTING MACHINE OPERATOR): Will check UA with reflex to microscopy and culture If evidence of UTI will treat as needed Screening for thyroid disorder 11/23/2021 Assessment & Plan (11/23/2021 3:29 PM TYPECASTING MACHINE OPERATOR): Will get routine lab testing today Discussed importance of getting proper vaccinations with patient including COVID vaccination. Patient will think about it Advised to see Gynecology for Pap smear Fit testing negative Will get screening CT scan for lung cancer Ophthalmology referral placed for a dilated eye exam Cough 2021 Assessment & Plan (2021 5:33 PM TYPECASTING MACHINE OPERATOR): Patient has chronic cough with strong history [...] losartan Assessment & Plan (11/23/2021 3:11 PM TYPECASTING MACHINE OPERATOR): Patient pressure high initially on presentation. Improved after patient stayed in room for bit Advised to make blood pressure log at home, may need to adjust medications depending on results Assessment & Plan (2021 5:34 PM TYPECASTING MACHINE OPERATOR): Patient has chronic hypertension controlled with losartan [...] 09/15/2021 Assessment & Plan (11/23/2021 3:24 PM TYPECASTING MACHINE OPERATOR): Records from [place] reviewed patient has MRI thoracic spine with that degenerative joint disease Patient was following with Orthopedics there but would wish to establish care with someone over here Will place referral for Orthopedics over here Assessment & Plan (2021 5:30 PM TYPECASTING MACHINE OPERATOR): Records sent over from [place] [facility] reviewed patient has back x-rays which show mild degenerative disease however no MRI present. Discussed with patient she says she definitely had an MRI recently Will obtain records of MRI Will continue Tylenol 1 g q.8 hours p.r.n. for pain Patient advised to continue ice packs as she feels these help her pain Assessment & Plan (09/15/2021 2:52 PM TYPECASTING MACHINE OPERATOR): Patient has chronic lower back pain related to trauma and recently had imaging at [facility] We will obtain medical records Will start on tylenol 1 gm Q8H PRN for pain Other constipation 09/15/2021 Assessment & Plan (11/23/2021 3:10 PM TYPECASTING MACHINE OPERATOR): Condition stable. Symptoms controlled Continue current treatment with senna and MiraLax Assessment & Plan (09/15/2021 2:51 PM TYPECASTING MACHINE OPERATOR): Chronic constipation patient unable to have bowel [...] 09/15/2021 Assessment & Plan (09/15/2021 2:54 PM TYPECASTING MACHINE OPERATOR): POC UA today did not show any [...] treatment Assessment & Plan (11/23/2021 3:26 PM TYPECASTING MACHINE OPERATOR): Condition stable. Symptoms controlled Continue current treatment with glipizide 5 mg daily Patient has significantly decreased sensation in lower extremities related to diabetes Discussed importance of proper foot care to prevent development of ulcers or infections or fractures with patient Assessment & Plan (2021 5:28 PM TYPECASTING MACHINE OPERATOR): Condition stable. Symptoms controlled Continue current treatment with glipizide Will check HbA1c today Assessment & Plan (09/15/2021 2:52 PM TYPECASTING MACHINE OPERATOR): Condition stable. Symptoms controlled per patient. Continue [...] appointment Assessment & Plan (11/23/2021 3:13 PM TYPECASTING MACHINE OPERATOR): Condition stable. Symptoms controlled Continue current treatment Will place referral for Psychiatry evaluation Assessment & Plan (09/15/2021 2:47 PM TYPECASTING MACHINE OPERATOR): Patient has been off medications since 2019 [...] atorvastatin Assessment & Plan (2021 5:31 PM TYPECASTING MACHINE OPERATOR): Condition stable. Symptoms controlled without medication Will check lipid panel today Assessment & Plan (09/15/2021 3:49 PM TYPECASTING MACHINE OPERATOR): Condition stable. Symptoms controlled Continue to monitor. [...] drink = 0.6 oz pur e alcohol) [facility] Utilities Answer Date Recorded In the past 12 months has Don[employer], gas, oil, or water [employer] threatened to shut off services in your [...] often do you attend chur ch or pentecostalism services? Never 11/04/2024 Do you belong to any clubs o r organizations such as amish groups, unions, fraternal or athletic groups, or [...] any time in the past 12 m [facility], were you homeless or living in a prison (including now)? No 11/04/2024 Personal Safety Answer Date Recorded Have you ever been in or are you currently in a harmful physical or emotional relationship or is someone making you feel afraid or unsafe? Denies 11/01/2024 Comments No Sex and Gender Information Value Date Recorded Sex Assigned at Not on file Legal Sex Female 12:54 AM TYPECASTING MACHINE OPERATOR Gender Identity Not on file Sexual Orientation Not on file Last Filed Vital Signs Vital Sign Reading Time Taken Comments Blood Pressure 129/79 11/04/2024 12:30 PM TYPECASTING MACHINE OPERATOR Pulse 59 11/04/2024 12:30 PM TYPECASTING MACHINE OPERATOR Temperature 36.4 C (97.6 F) 11/04/2024 12:30 PM TYPECASTING MACHINE OPERATOR Respiratory Rate 18 11/04/2024 12:30 PM TYPECASTING MACHINE OPERATOR Oxygen Saturation 94% 11/04/2024 12:30 PM TYPECASTING MACHINE OPERATOR Inhaled Oxygen Concentration - - Weight 74.4 kg (164 lb 0.4 oz) 11/01/2024 12:40 AM TYPECASTING MACHINE OPERATOR Height 160 cm (5' 3 ) 11/01/2024 12:40 AM TYPECASTING MACHINE OPERATOR Body Mass Index 29.06 11/01/2024 12:40 AM TYPECASTING MACHINE OPERATOR Plan of Treatment Not on file Procedures Procedure Name Priority Date/Time Associated Diagnosis Comments EGFR Routine 11/04/2024 1:32 AM TYPECASTING MACHINE OPERATOR HEMOGLOBIN A1C Routine 05/03/2022 11:08 AM CDT [...] CREATININE RATIO, URINE Routine 11/23/2021 3:00 PM TYPECASTING MACHINE OPERATOR Weight loss, unintentional from Last 3 Months or Most Recently Relevant to Health Maintenance Results * (ABNORMAL) eGFR (11/04/2024 1:32 AM TYPECASTING MACHINE OPERATOR) eGFR 54(L) >=60 mL/min/1. 73 m2 Comment: [...] last reviewed 2021. Blood 11/04/2024 1:32 AM TYPECASTING MACHINE OPERATOR 11/04/2024 2:01 AM TYPECASTING MACHINE OPERATOR Becka Napoles NP LAB BLOOD ORDERABLES Final Resul t Performing Organization Address City/[facility] Co de Phone Number [facility] [address] Department [place] [address] * (ABNORMAL) Hemoglobin A1c (05/03/2022 11:08 AM CDT) Hgb A1C 5.9(H) 4.0 - 5.6 % [facility]) Estimated Average Glucose 123 mg/dL [facility] ([place]) Comment: The ADA recommends reporting an estimated Average Glucose (eAG) with all Hemoglobin A1c results using the equation derived from a study of 507 normal and diabetic adults. Minority populations were underrepresented and children were not included. (Diabetes Care 31:1437-9137, 2008). The eAG is not equivalent to a fasting glucose. Blood 05/03/2022 11:0 8 AM CDT 05/03/2022 12:15 PM CDT Mojgan Cartwright MD LAB BLOOD ORDERABLES Final Resul t [facility] ([place]) [address] Department of Laboratories [place], [place] [id number] * Lipid panel (05/03/2022 11:08 AM CDT) Pathologist [facility] Cholesterol 176 30 - 199 mg/dL [facility] ([place]) Comment: Interpretive Data [...] revised on 2018. Triglycerides 106 <=149 mg/dL [facility] ([place]) Comment: Interpretive Data [...] revised on 2018. HDL 54 >=40 mg/dL [facility] ([place]) Comment: Interpretive Data Ages [...] on 2018. LDL, calculated 101 <=129 mg/dL [facility] ([place]) Comment: Interpretive Data [...] revised on 2018. Non-HDL Cholesterol 122 mg/dL [facility] ([place]) Comment: Interpretive Data Ages < or [...] last revised on 2018. Chol/HDL ratio 3 [facility] Gabriela [facility] YANCY) Blood 05/03/2022 11:0 8 AM CDT 05/03/2022 12:15 PM CDT Mojgan Cartwright MD LAB BLOOD ORDERABLES Final Resul t [facility] ([place]) [address] Department [place] [address] * Hepatitis C antibody (12/22/2021 10:50 AM CDT) Hep C Ab Nonreactive Nonreactive [facility]) Comment: Interpretive Data Nonreactive: Antibodies to [...] last revised on 2019. Testing performed by: [facility], [address], [place]., [address] Blood 12/22/2021 10:5 0 AM CDT 12/22/2021 6:30 PM CDT Mojgan Cartwright MD LAB MICROBIOLOGY - GENERAL ORDER JAYSON Final Result Performing Organization Address [facility]/ZIP Co de Phone Number [facility] ([place]) [address] [place] [address] [place] [address] * Albumin Creatinine Ratio, Urine (11/23/2021 3:00 PM TYPECASTING MACHINE OPERATOR) Albumin Ur 620.0 mg/L IV[facility] ([place]) Comment: Interpretive Data No reference range established. Current interpretive data was last revised 2019. Creatinine Ur 240.5 mg/dL IVY [facility] ([place]) Comment: Interpretive Data No reference range established. Current interpretive data was last revised 2019. Albumin Creatinine Ratio, Ur See Comment 1 - 29 [facility] ([place]) Comment:Unable to calculate. Urine 11/23/2021 3:00 PM TYPECASTING MACHINE OPERATOR 11/23/2021 4:33 PM TYPECASTING MACHINE OPERATOR Mojgan Cartwright MD LAB URINE ORDERABLES Final Resul t Performing Organization Address City/[facility]/ZIP Co de Phone Number [facility] ([place]) [address] [place] [address] Department [place] [address] from Last 3 Months or Most Recently Relevant to Health Maintenance [place] [employer] [place] [employer] [employer] [facility] [employer] [place] [employer] [employer] Advance Directives For more information, please contact: [phone] * Full Code (Latest Code Status on File) Date Activated Date Inactivated Comments 11/01/2024 5:17 AM 11/04/2024 6:04 PM * Full Code Date Activated Date Inactivated Comments 10/21/2018 11:13 AM 10/25/2018 5:44 PM Care Teams Hook Up Driver Relationship Specialty Start Date End Date Amish Stewart MD 09/06/21 Valerie Gastelum DO [address] [facility] [address] [place] [address] Consulting Physician Cardiology 11/04/24
--- OUTSIDE RECORDS SUMMARY | 2025-02-19 10:14 | XMS_ITS | CONTINUITY OF CARE DOCUMENT ---
Author Name karina collins Address Unknown Organization [facility] Address [address] [place] [address] Phone [phone] Care Team Providers Care Knockup Worker Name Role Phone Ramy Lopez MD Unavailable [phone] PRATIBHA FARAH MD Unavailable NHUNG DUMONT, MICHELLE Unavailable Unavailable INSURANCE PROVIDERS Payer name Policy type / Coverage type [place] red [place] [employer] Medicaid [id number]
[2025-02-19 10:16] LABS: Alanine Aminotransferase 16 U/L (6-35); Albumin Level 4.8 g/dL (3.5-5.1); Alkaline Phosphatase 88 U/L (38-126); Anion Gap 12 mmol/L (4-12); Aspartate Amino Transferase 23 U/L (14-36); Bilirubin,Total 0.7 mg/dL (0.2-1.3); Blood Urea Nitrogen 30 mg/dL (7-17); Calcium 10.3 mg/dL (8.4-10.2); Carbon Dioxide 18 mmol/L (22-30); Chloride 111 mmol/L (98-107); Estimated CRCL calculation 53 ml/min; Estimated Glomerular Filt Rate > 60; Glucose 111 mg/dL (65-110); Lipase 264 U/L (23-300); Potassium 4.6 mmol/L (3.4-5.0); Sodium 141 mmol/L (137-145)
[2025-02-19 10:28] LABS: NT Pro B Type Natriuretic Pept 2050 pg/mL (19.9-100); Troponin I < 0.012 ng/mL (0.000-0.034)
--- NOTE | 2025-02-19 11:50 | ECG_ITS ---
Test Date: 2012-10-02 12:45:04 Measurements Intervals [place] Rate: 78 P: 50 VT: 232 QRS: -47 QRSD: 124 T: 105 QT: 419 QTc: 477 Interpretive Statements SINUS RHYTHM WITH FIRST DEGREE AV BLOCK MARKED LEFT AXIS DEVIATION [QRS AXIS < -30] LEFT VENTRICULAR HYPERTROPHY AND ST-T CHANGE [VOLTAGE CRITERIA PLUS ST/T ABNORMALITY] POSSIBLE SEPTAL MYOCARDIAL INFARCTION , OF INDETERMINATE AGE [30 ms Q WAVE IN V1/V2] CORRECT DATE AND TIME - 02/19/2025 12:45:04- MACHINE DATE NEED TO BE SYNCED/UPDATED ABNORMAL ECG No previous ECG available for comparison Electronically Signed On 02-19-2025 13:11:00 CDT by Kevin Boss M.D.
--- NOTE | 2025-02-19 12:18 | ED.CHESTPAIN ---
HPI - Chest Pain General Chief Complaint: Chest Pain <ANABELL Hanks Last Filed: 02/19/25 17:25> Stated Complaint: Rib pain <ANABELL Hanks Last Filed: 02/19/25 17:25> Time Seen by Provider: 02/19/25 08:59 <ANABELL Hanks Last Filed: 02/19/25 17:25> Source: patient <ANABELL Hanks Last Filed: 02/19/25 17:25> Mode of arrival: ambulatory <ANABELL Hanks Last Filed: 02/19/25 17:25> Limitations: no limitations <ANABELL Hanks Last Filed: 02/19/25 17:25> History of Present Illness HPI narrative: Patient is a 64-year-old female, with past medical history of CAD status post CABG August 2024, who presents to the ED with report of chest pain. Patient reports over the past 1 week, she has been having intermittent pain throughout her left lower chest, described as a tightness. She notes that this sensation felt similar to what she experienced prior to the CABG. She does mention that she had to bury her daughter's father last week, and has been under increased stress. She has been feeling intermittently short of breath. Denies pain or swelling in her legs. Denies cough or cold symptoms, fevers. Patient sees Dr. Bray with [facility] Cardiology Patient is on Eliquis and Plavix. She does report compliance with her medications. She states she has missed a few appointments with her doctors, due to her car breaking down. <ANABELL Hanks Last Filed: 02/19/25 17:25> Related Data Allergies/Adverse Reactions: Allergies Allergy/AdvReac Type Severity Reaction Status Date / Time aspirin Allergy Mild Itching Verified 02/19/25 08:50 latex Allergy Mild Hives Verified 02/19/25 08:50 <ANABELL Hanks Last Filed: 02/19/25 17:25> Review of Systems Review of Systems: All systems reviewed & are unremarkable except as noted in HPI. <Bettye Jaeger PA-C - Last Filed: 02/19/25 17:25> All systems reviewed & are unremarkable except as noted in HPI and below <Bettye Jaeger PA-C - Last Filed: 02/19/25 17:25> [facility] Past Medical History Medical History: Medical History Coronary artery disease <Bettye Jaeger PA-C - Last Filed: 02/19/25 17:25> Surgical History Surgical History: Surgical History Hx of CABG August 2024 <Bettye Jaeger PA-C - Last Filed: 02/19/25 17:25> Exam Narrative: GENERAL: Chronically ill-appearing, obese with BMI of 31.8, non-toxic, in no acute distress. HEAD: Normocephalic, atraumatic. ENT: Edentulous RESPIRATORY: Airway patent, respirations nonlabored. Clear to auscultation bilaterally, no rales, rhonchi, wheezing. CARDIOVASCULAR: Regular rate and rhythm without murmurs, rubs, or gallops. ABDOMINAL: Soft, nontender, nondistended. Normoactive BS. MUSCULOSKELETAL: Moves all extremities. No gross deformities. No significant reproducible chest wall tenderness. Midline surgical scar healing well. No peripheral edema. SKIN: Warm, dry, normal color. NEURO: A&O X3. Speech clear. Cranial nerves II-XII grossly intact. Steady gait. No ataxic movements. PSYCHIATRIC: Appropriate mood and affect. Normal interaction. <Bettye Jaeger PA-C - Last Filed: 02/19/25 17:25> Course HEALTHCARE SCIENCE SPECIALIST/PA Physician Supervision This visit was performed by both a physician and an APC. I performed all aspects of the MDM as documented. <Aristides Guerra MD - Last Filed: 02/19/25 18:39> Vital Signs Vital signs: Vital Signs Temperature 97.9 F 02/19/25 08:46 Pulse Rate 68 02/19/25 08:46 Respiratory Rate 12 02/19/25 08:46 Blood Pressure 172/62 H 02/19/25 08:46 Pulse Oximetry 100 02/19/25 08:46 Oxygen Delivery Room Air 02/19/25 08:46 Temperature 97.9 F 02/19/25 08:46 Pulse Rate 71 02/19/25 17:18 Respiratory Rate 16 02/19/25 17:18 Blood Pressure 155/77 H 02/19/25 17:18 Pulse Oximetry 100 02/19/25 17:18 Oxygen Delivery Room Air 02/19/25 08:52 <Bettye Jaeger PA-C - Last Filed: 02/19/25 17:25> Vital Signs Temperature 97.9 F 02/19/25 08:46 Pulse Rate 68 02/19/25 08:46 Respiratory Rate 12 02/19/25 08:46 Blood Pressure 172/62 H 02/19/25 08:46 Pulse Oximetry 100 02/19/25 08:46 Oxygen Delivery Room Air 02/19/25 08:46 Temperature 97.9 F 02/19/25 08:46 Pulse Rate 71 02/19/25 17:18 Respiratory Rate 16 02/19/25 17:18 Blood Pressure 155/77 H 02/19/25 17:18 Pulse Oximetry 100 02/19/25 17:18 Oxygen Delivery Room Air 02/19/25 08:52 <Aristides Guerra MD - Last Filed: 02/19/25 18:39> MDM - Chest Pain MDM Narrative Medical decision making narrative: Patient presented to ED with left-sided chest pain/tightness. History of CABG last August. States this feels similar. Vital signs are stable upon arrival. EKG with sinus bradycardia, rates in the upper 50s. No concerning ST changes at this time. Baseline troponin is undetectable. Patient was given 1 sublingual nitroglycerin and did report complete resolution of her pain. Basic laboratory studies are otherwise fairly unremarkable. No leukocytosis or anemia. Stable electrolytes. Stable kidney function. BNP is elevated to 2050, however patient does not appear acutely fluid overloaded. Chest x-ray is clear. No evidence of pulmonary edema. Denies shortness of breath at this time. 3 hour troponin also resulted undetectable. 3 hour EKG does not show significant interval changes. Discussed case with patient's software licensing executive, Dr. Bray [facility] Cardiology, advised patient will need stress test. Recommended admission for stress test. Discussed case with Della Anay HEALTHCARE SCIENCE SPECIALIST hospitalist, accepted patient for admission, as long as Cardiology is OK with patient staying here. Discussed with Dr. Boss, OK with plan, will consult, NPO at midnight. Patient family in agreement with plan and need for admission. <Bettey Jaeger PA-C - Last Filed: 02/19/25 17:25> Medical Records Data Attestation: I reviewed the patient's medical records. <Bettye Jaeger PA-C - Last Filed: 02/19/25 17:25> Lab Data Attestation: I reviewed the patient's lab results. <Bettye Jaeger PA-C - Last Filed: 02/19/25 17:25> Result diagrams: 02/19/25 09:00 02/19/25 09:54 <Bettye Jaeger PA-C - Last Filed: 02/19/25 17:25> Labs: Lab Results 02/19/25 02/19/25 02/19/25 Range/Units 09:00 09:54 12:06 WBC 9.1 (4.5-10.0) K/mm3 RBC 5.00 (4.2-5.4) M/mm3 Hgb 15.0 (12.0-15.0) g/dL Hct 48.0 H (37.0-47.0) % MCV 96.0 (80-100) fl MCH 30.0 (26-34) pg MCHC 31.3 L (32-36) g/dl RDW 17.6 H (11.5-14.5) % Plt Count 410 H (150-375) k/mm3 MPV 10.9 H (7.4-10.4) fl Immature Gran % (Auto) 0.5 (0-0.5) % Neut % (Auto) 56.5 (45.5-73.1) % Lymph % (Auto) 30.3 (18.3-44.2) % [place] % (Auto) 9.1 H (2.6-8.5) % Eos % (Auto) 2.3 (0-4.4) % Baso % (Auto) 1.3 H (0.2-1.2) % Lymph # (Auto) 2.77 (0.9-3.2) K/mm3 [place] # (Auto) 0.8 H (0.1-0.6) K/mm3 Eos # (Auto) 0.2 (0-0.3) K/mm3 Baso # (Auto) 0.1 (0.0-0.1) K/mm3 Abs Immat Gran (auto) 0.05 H (0.00-0.031) K/mm3 Absolute Neuts (auto) 5.2 (1.3-6.7) K/mm3 Absolute Nucleated RBC 0.000 (0.0-0.012) K/mm3 Nucleated RBC % 0.0 (0.0-0.2) % PT 16.5 H (11.1-14.7) Seconds INR 1.3 APTT 24.2 (22.3-36.8) Seconds Sodium 141 (137-145) mmol/L Potassium 4.6 (3.4-5.0) mmol/L Chloride 111 H (98-107) mmol/L Carbon Dioxide 18 L (22-30) mmol/L Anion Gap 12 (4-12) mmol/L BUN 30 H (7-17) mg/dL Creatinine 0.92 (0.7-1.0) mg/dL Estim Creat Clear Calc 53 ml/min Estimated GFR > 60 (59 - ) Glucose 111 H (65-110) mg/dL Calcium 10.3 H (8.4-10.2) mg/dL Total Bilirubin 0.7 (0.2-1.3) mg/dL AST 23 (14-36) U/L ALT 16 (6-35) U/L Alkaline Phosphatase 88 (38-126) U/L Troponin I < 0.012 < 0.012 (0.000-0.034) ng/mL NT-Pro-B Natriuret Pep 2050 H (19.9-100) pg/mL Total Protein 8.0 (6.3-8.2) g/dL Albumin 4.8 (3.5-5.1) g/dL Lipase 264 (23-300) U/L 02/19/25 Range/Units 15:00 WBC (4.5-10.0) K/mm3 RBC (4.2-5.4) M/mm3 Hgb (12.0-15.0) g/dL Hct (37.0-47.0) % MCV (80-100) fl MCH (26-34) pg MCHC (32-36) g/dl RDW (11.5-14.5) % Plt Count (150-375) k/mm3 MPV (7.4-10.4) fl Immature Gran % (Auto) (0-0.5) % Neut % (Auto) (45.5-73.1) % Lymph % (Auto) (18.3-44.2) % Marathon % (Auto) (2.6-8.5) % Eos % (Auto) (0-4.4) % Baso % (Auto) (0.2-1.2) % Lymph # (Auto) (0.9-3.2) K/mm3 Marathon # (Auto) (0.1-0.6) K/mm3 Eos # (Auto) (0-0.3) K/mm3 Baso # (Auto) (0.0-0.1) K/mm3 Abs Immat Gran (auto) (0.00-0.031) K/mm3 Absolute Neuts (auto) (1.3-6.7) K/mm3 Absolute Nucleated RBC (0.0-0.012) K/mm3 Nucleated RBC % (0.0-0.2) % PT (11.1-14.7) Seconds INR APTT (22.3-36.8) Seconds Sodium (137-145) mmol/L Potassium (3.4-5.0) mmol/L Chloride (98-107) mmol/L Carbon Dioxide (22-30) mmol/L Anion Gap (4-12) mmol/L BUN (7-17) mg/dL Creatinine (0.7-1.0) mg/dL Estim Creat Clear Calc ml/min Estimated GFR (59 - ) Glucose (65-110) mg/dL Calcium (8.4-10.2) mg/dL Total Bilirubin (0.2-1.3) mg/dL AST (14-36) U/L ALT (6-35) U/L Alkaline Phosphatase (38-126) U/L Troponin I < 0.012 (0.000-0.034) ng/mL NT-Pro-B Natriuret Pep (19.9-100) pg/mL Total Protein (6.3-8.2) g/dL Albumin (3.5-5.1) g/dL Lipase (23-300) U/L <Bettye Jaeger PA-C - Last Filed: 02/19/25 17:25> Lab Results 02/19/25 02/19/25 02/19/25 Range/Units 09:00 09:54 12:06 WBC 9.1 (4.5-10.0) K/mm3 RBC 5.00 (4.2-5.4) M/mm3 Hgb 15.0 (12.0-15.0) g/dL Hct 48.0 H (37.0-47.0) % MCV 96.0 (80-100) fl MCH 30.0 (26-34) pg MCHC 31.3 L (32-36) g/dl RDW 17.6 H (11.5-14.5) % Plt Count 410 H (150-375) k/mm3 MPV 10.9 H (7.4-10.4) fl Immature Gran % (Auto) 0.5 (0-0.5) % Neut % (Auto) 56.5 (45.5-73.1) % Lymph % (Auto) 30.3 (18.3-44.2) % Marathon % (Auto) 9.1 H (2.6-8.5) % Eos % (Auto) 2.3 (0-4.4) % Baso % (Auto) 1.3 H (0.2-1.2) % Lymph # (Auto) 2.77 (0.9-3.2) K/mm3 [place] # (Auto) 0.8 H (0.1-0.6) K/mm3 Eos # (Auto) 0.2 (0-0.3) K/mm3 Baso # (Auto) 0.1 (0.0-0.1) K/mm3 Abs Immat Gran (auto) 0.05 H (0.00-0.031) K/mm3 Absolute Neuts (auto) 5.2 (1.3-6.7) K/mm3 Absolute Nucleated RBC 0.000 (0.0-0.012) K/mm3 Nucleated RBC % 0.0 (0.0-0.2) % PT 16.5 H (11.1-14.7) Seconds INR 1.3 APTT 24.2 (22.3-36.8) Seconds Sodium 141 (137-145) mmol/L Potassium 4.6 (3.4-5.0) mmol/L Chloride 111 H (98-107) mmol/L Carbon Dioxide 18 L (22-30) mmol/L Anion Gap 12 (4-12) mmol/L BUN 30 H (7-17) mg/dL Creatinine 0.92 (0.7-1.0) mg/dL Estim Creat Clear Calc 53 ml/min Estimated GFR > 60 (59 - ) Glucose 111 H (65-110) mg/dL Calcium 10.3 H (8.4-10.2) mg/dL Total Bilirubin 0.7 (0.2-1.3) mg/dL AST 23 (14-36) U/L ALT 16 (6-35) U/L Alkaline Phosphatase 88 (38-126) U/L Troponin I < 0.012 < 0.012 (0.000-0.034) ng/mL NT-Pro-B Natriuret Pep 2050 H (19.9-100) pg/mL Total Protein 8.0 (6.3-8.2) g/dL Albumin 4.8 (3.5-5.1) g/dL Lipase 264 (23-300) U/L 02/19/25 Range/Units 15:00 WBC (4.5-10.0) K/mm3 RBC (4.2-5.4) M/mm3 Hgb (12.0-15.0) g/dL Hct (37.0-47.0) % MCV (80-100) fl MCH (26-34) pg MCHC (32-36) g/dl RDW (11.5-14.5) % Plt Count (150-375) k/mm3 MPV (7.4-10.4) fl Immature Gran % (Auto) (0-0.5) % Neut % (Auto) (45.5-73.1) % Lymph % (Auto) (18.3-44.2) % Marathon % (Auto) (2.6-8.5) % Eos % (Auto) (0-4.4) % Baso % (Auto) (0.2-1.2) % Lymph # (Auto) (0.9-3.2) K/mm3 [place] # (Auto) (0.1-0.6) K/mm3 Eos # (Auto) (0-0.3) K/mm3 Baso # (Auto) (0.0-0.1) K/mm3 Abs Immat Gran (auto) (0.00-0.031) K/mm3 Absolute Neuts (auto) (1.3-6.7) K/mm3 Absolute Nucleated RBC (0.0-0.012) K/mm3 Nucleated RBC % (0.0-0.2) % PT (11.1-14.7) Seconds INR APTT (22.3-36.8) Seconds Sodium (137-145) mmol/L Potassium (3.4-5.0) mmol/L Chloride (98-107) mmol/L Carbon Dioxide (22-30) mmol/L Anion Gap (4-12) mmol/L BUN (7-17) mg/dL Creatinine (0.7-1.0) mg/dL Estim Creat Clear Calc ml/min Estimated GFR (59 - ) Glucose (65-110) mg/dL Calcium (8.4-10.2) mg/dL Total Bilirubin (0.2-1.3) mg/dL AST (14-36) U/L ALT (6-35) U/L Alkaline Phosphatase (38-126) U/L Troponin I < 0.012 (0.000-0.034) ng/mL NT-Pro-B Natriuret Pep (19.9-100) pg/mL Total Protein (6.3-8.2) g/dL Albumin (3.5-5.1) g/dL Lipase (23-300) U/L <Aristides Guerra MD - Last Filed: 02/19/25 18:39> Imaging Data Attestation: I personally reviewed and interpreted this imaging study as follows: <Bettye Jaeger PA-C - Last Filed: 02/19/25 17:25> Radiologist's impression: ITS Impressions Chest X-Ray 02/19/25 09:21 Impression: Clear lungs. Status post CABG. <Bettye Jaeger PA-C - Last Filed: 02/19/25 17:25> ECG Data EKG #1: Attestation: I personally reviewed and interpreted this ECG as follows: <Bettye Jaeger PA-C - Last Filed: 02/19/25 17:25> ECG completion date: 02/19/25 <ANABELL Hanks Last Filed: 02/19/25 17:25> ECG completion time: 08:49 <ANABELL Hanks Last Filed: 02/19/25 17:25> EKG Interpretation: bradycardia (57), sinus rhythm, non-specific ST changes and other (first degree av block) <ANABELL Hanks Last Filed: 02/19/25 17:25> Discharge Plan Discharge Clinical Impression: Hx of CABG Chest pain Qualifiers: Chest pain type: unspecified Qualified Code(s): R07.9 - Chest pain, unspecified <Bettye Jaeger PA-C - Last Filed: 02/19/25 17:25> Patient Disposition: Still a Patient <ANABELL Hanks Last Filed: 02/19/25 17:25> Condition: Stable <Bettye Jaeger PA-C - Last Filed: 02/19/25 17:25> Patient Language: Barbadian <ANABELL Hanks Last Filed: 02/19/25 17:25> Follow-up/Referrals: UNKNOWN,DOCTOR [Primary Care Provider] - <ANABELL Hanks Last Filed: 02/19/25 17:25> Quality HEART score for chest pain patients History: highly suspicioius <ANABELL Hanks Last Filed: 02/19/25 17:25> ECG: non specific repolarization disturbance/LBTB/PM <ANABELL Hanks Last Filed: 02/19/25 17:25> Age: > or = to 65 years <ANABELL Hanks Last Filed: 02/19/25 17:25> Risk factors: > or = to 3 risk factors of atherosclerotic disease <Bettye Jaeger PA-C - Last Filed: 02/19/25 17:25> Troponin: < or = to 1x normal limit <Bettye Jaeger PA-C - Last Filed: 02/19/25 17:25> Heart score: 7 <Bettye Jaeger PA-C - Last Filed: 02/19/25 17:25> 7 <Aristides Guerra MD - Last Filed: 02/19/25 18:39>
[2025-02-19 12:33] LABS: Troponin I < 0.012 ng/mL (0.000-0.034)
--- NOTE | 2025-02-19 15:28 | P.HP_ITS ---
H&P: [facility] History of Present Illness Date/Time: 02/19/25 15:28 Chief Complaint: Chest Pain Narrative: 64 y/o F with PMH of CAD, CABG, stroke (residual LUE weakness), HLD, valve replacement, asthma, GERD, hernia, dementia, arthritis, diabetes, anxiety/depression, bipolar disorder, and ovarian cancer s/p oophorectomy 2000 presents here with chest pain. The patient presents here from home for further evaluation of left-sided chest pain. She reports onset post CABG in August of 2024. She reports that her truck sales representative told her this is not an unexpected finding, however she became concerned when the pain continued to worsen overnight into this morning and she began having radiation into her upper extremity. Last night while she was asleep. She describes the pain as progressive, pressure, sharp, with radiation into her left upper extremity, intermittent, 30 mins to 2 hrs, aggravated by exertion, and alleviated by resting and occasionally heat. She reports associated nausea without vomiting, shortness of breath, diaphoresis, fatigue, GERD-like symptoms. She denies palpitations. Initial VS at presentation: 97.9? F, HR 68, R 12, 172/62, and 100% on RA. ED workup showed: No leukocytosis, no anemia, INR 1.3, creatinine 0.92 and GFR >60, glucose 111, BNP 2050, and initial troponin negative. CXR showed clear lungs and s/p CABG. Initial EKG showed sinus bradycardia with first-degree AV block, intraventricular conduction delay, possible anterior MT of indeterminate age, rate 57. Review of Systems Review of Systems: All systems reviewed & are unremarkable except as noted in HPI and below [facility] Past Medical History Medical History (Updated 02/19/25 @ 22:53 by Della Cueva APRN) Bipolar disorder Depression Anxiety History of primary malignant neoplasm of left ovary Diabetes Arthritis Hernia GERD (gastroesophageal reflux disease) Asthma HTN (hypertension) HLD (hyperlipidemia) Dementia Coronary artery disease Surgical History Surgical History (Updated 02/19/25 @ 22:50 by Della Cueva APRN) History of left oophorectomy History of hysterectomy History of heart valve replacement Hx of CABG August 2024 Social History Social History Smoking packs per day: 0.25 Smoking cigarettes per day: 5.0 Smoking status: Former smoker Tobacco type: cigarettes Smoking end date: 07/02/24 Alcohol intake: current Drinks per week: 1 Substance use: current Substance use type: marijuana Do You Feel Safe in your Home?: Yes Lack of Transportation: No Lack of Food: Never True Current Housing: I Have Housing Concerned About Future Housing: No Difficulty Paying Gas/Electric Bills: No Difficulty Paying for Meds: No Currently Unemployed: No Education: High School Diploma/GED Difficulty w/ Childcare or Family Care: No Spiritual care concerns: No Meds Home Medications and Allergies Home Medications ?Medication ?Instructions ?Recorded ?Confirmed ?Type apixaban 5 mg tablet (Eliquis) 5 mg PO BID 02/19/25 02/19/25 History clopidogrel 75 mg tablet 75 mg PO DAILY 02/19/25 02/19/25 History empagliflozin 10 mg tablet 10 mg PO DAILY 02/19/25 02/19/25 History (Jardiance) furosemide 20 mg tablet 20 mg PO DAILY 02/19/25 02/19/25 History metoprolol succinate 25 mg 12.5 mg PO DAILY 02/19/25 02/19/25 History tablet,extended release 24 hr sacubitril 24 mg-valsartan 26 mg 1 tablet PO BID 02/19/25 02/19/25 History tablet (Entresto) spironolactone 25 mg tablet 25 mg PO DAILY 02/19/25 02/19/25 History Allergies Allergy/AdvReac Type Severity Reaction Status Date / Time aspirin Allergy Mild Itching Verified 02/19/25 08:50 latex Allergy Mild Hives Verified 02/19/25 08:50 Vital Signs Vital Signs - 24 hr 02/19/25 08:46 02/19/25 08:48 02/19/25 08:52 Temperature 97.9 F Pulse Rate 68 61 Respiratory Rate 12 12 Blood Pressure 172/62 H 172/62 H Pulse Oximetry 100 100 100 Oxygen Delivery Room Air Room Air 02/19/25 09:58 02/19/25 10:07 02/19/25 10:36 Temperature Pulse Rate 76 75 84 Respiratory Rate 20 21 H 23 H Blood Pressure 152/75 H 121/84 112/70 Pulse Oximetry 98 98 Oxygen Delivery 02/19/25 10:41 02/19/25 10:56 02/19/25 11:11 Temperature Pulse Rate 88 83 83 Respiratory Rate 25 H 23 H 21 H Blood Pressure 115/75 125/75 127/66 Pulse Oximetry Oxygen Delivery 02/19/25 11:16 02/19/25 11:51 02/19/25 13:59 Temperature Pulse Rate 95 83 70 Respiratory Rate 17 20 20 Blood Pressure 131/68 131/75 117/59 L Pulse Oximetry 97 100 Oxygen Delivery 02/19/25 14:50 Temperature Pulse Rate 72 Respiratory Rate 14 Blood Pressure 156/68 H Pulse Oximetry 97 Oxygen Delivery Exam Const: General: comfortable and no acute distress Other: , female, nontoxic appearance HENMT: Face/Nose/Sinus: Normal nares present Mouth: Yes moist mucous membranes Eyes: General: appearance normal, both eyes and all related structures Sclera: sclerae normal Pupils: Equal, round and reactive pupils present EOM: EOMs intact bilaterally Resp: Effort & Inspection: normal respiratory effort Auscultation: clear to auscultation bilaterally Cardio: Rate: regular rate Rhythm: regular rhythm Other: S1-S2 present without murmur, rub, ectopy GI: Other: Abdomen soft, nondistended, nontender. Normoactive bowel sounds in all q uadrants. Skin: General skin exam: normal color and no rashes or lesions noted Wounds: no wounds Neuro: Speech: normal speech Motor exam (neuro): 5/5 motor strength present throughout Sensory Exam: normal sensation Other: A&O x4 Extrem: General: normal to inspection Psych: Mental Status: mental status grossly normal Affect: normal affect Other: Good insight and judgment, pleasant H&P: Results Labs Labs: Short CBC 02/19/25 Range/Units 09:00 WBC 9.1 (4.5-10.0) K/mm3 Hgb 15.0 (12.0-15.0) g/dL Hct 48.0 H (37.0-47.0) % Plt Count 410 H (150-375) k/mm3 BMP 02/19/25 09:54 Sodium 141 Potassium 4.6 Chloride 111 H Carbon Dioxide 18 L BUN 30 H Creatinine 0.92 Glucose 111 H Calcium 10.3 H Cardiac Enzymes 02/19/25 02/19/25 Range/Units 09:54 12:06 Troponin I < 0.012 < 0.012 (0.000-0.034) ng/mL Liver Function 02/19/25 Range/Units 09:54 Total Bilirubin 0.7 (0.2-1.3) mg/dL AST 23 (14-36) U/L ALT 16 (6-35) U/L Alkaline Phosphatase 88 (38-126) U/L Albumin 4.8 (3.5-5.1) g/dL Assessment and Plan Assessment and plan (1) Chest pain: Qualifiers: Chest pain type: unspecified Qualified Code(s): R07.9 - Chest pain, unspecified Code(s): R07.9 - Chest pain, unspecified Status: Acute Assessment and Plan: - EKG, initial: Sinus bradycardia with first-degree AV block, rate 57, intraventricular conduction delay, possible anterior MT of indeterminate age. - EKG, repeat (1): Sinus rhythm with first-degree AV block, marked left axis deviation, LVH and ST-T change, possible septal MT of indeterminate age. - CXR: Clear lungs, status post CABG - Troponin: < 0.012 x3 - continue Plavix and Eliquis - SL nitro PRN - cardiology consulted, awaiting recs - no previous echo or stress test on file - NPO at midnight for possible procedure, will likely receive stress test - telemetry monitoring (2) Diabetes: Qualifiers: Diabetes mellitus type: type 2 Diabetes mellitus regional intermodal truck driver insulin use: without regional intermodal truck driver use Diabetes mellitus complication status: without complication Qualified Code(s): E11.9 - Type 2 diabetes mellitus without complications Code(s): E11.9 - Type 2 diabetes mellitus without complications Status: Chronic Assessment and Plan: - hypoglycemia protocol - POC blood glucose ACHS - home medication: Jardiance - correct regimen ordered - mod dose TIDWM, based off BMI - A1C ordered, none on file (3) HTN (hypertension): Qualifiers: Hypertension type: primary hypertension Qualified Code(s): I10 - Essential (primary) hypertension Code(s): I10 - Essential (primary) hypertension Status: Chronic Assessment and Plan: - chronic, currently 118/83 - continue home medications: Metoprolol, Entresto, spironolactone - monitor Plan Diet: Heart healthy GI Prophylaxis: Not currently indicated DVT Prophylaxis: Eliquis IV fluids: None Lines/Tubes: Peripheral IV Code Status: Full code Quality VTE Prophylaxis VTE prophylaxis: pharmacologic ordered Hospitalist MIPS Advance Care Plan I have confirmed that the patient's Advanced Care Plan is present, code status is documented, or surrogate decision maker is listed in patient medical record.: Yes Medication Reconciliation I have utilized all available resources to obtain, update and review the patients current medications (includes all prescriptions, OTC, herbals, cannabis, and nutritional supplements).: Yes
[2025-02-19 15:31] LABS: Troponin I < 0.012 ng/mL (0.000-0.034)
--- NOTE | 2025-02-19 20:06 | ADMGEN ---
This patient, Amanda Clark, was admitted to IMU Room 211-01. Patient/family oriented to hospital policies and general routines including ID bracelet, bed and alarms, visiting hours, pain management, procedures, bathroom and other care routines, personal items, smoking policy, room service/diet, and visiting hours. Information on how to activate the Rapid Response Team has been discussed. Patient/Family are encouraged to report perceived risks to care and to ask questions if they do not understand what they are told or what they should do.
[2025-02-20] VITALS (19 sets, daily range): BP systolic 123–158; BP diastolic 55–103; PULSE 59–81; RESP 16–20; TEMP 36.6–36.9; O2SAT 95–100
--- NOTE | 2025-02-20 | EST_ITS ---
Patient Info Name: Amanda Clark Age: 64 years : 1960 Gender: Female Ht: 63 in Wt: 172 lbs BSA: 1.89 m2 Exam Date: 02/20/2025 1:52 PM Patient Status: I Admit Date: 02/19/2025 Exam Type: CA stress edin w NM A regadenoson stress test was performed. Staff Referring Physician: Tariq Chilel Attending Provider: Jn Gonzalez Nurse: Mitra Lopez Exercise Technologist: Vane Naranjo Summary 1. No abnormal ST-T wave changes with lexiscan. 2. Please correlate with nuclear medicine images, reported separately. Protocol: Lexiscan Stress ECG Details Stage: REST Duration (min): 1 min : 3 sec HR (bpm): 69 SBP (mmHg): 145 DBP (mmHg): 72 Stage: REST Duration (min): 3 min : 11 sec HR (bpm): 68 SBP (mmHg): 145 DBP (mmHg): 72 Stage: STAGE 1 Duration (min): 0 min : 59 sec HR (bpm): 83 SBP (mmHg): 130 DBP (mmHg): 68 Stage: RECOVERY Duration (min): 1 min : 0 sec HR (bpm): 94 SBP (mmHg): 138 DBP (mmHg): 65 Stage: RECOVERY Duration (min): 2 min : 0 sec HR (bpm): 86 SBP (mmHg): 138 DBP (mmHg): 65 Stage: RECOVERY Duration (min): 3 min : 0 sec HR (bpm): 80 SBP (mmHg): 125 DBP (mmHg): 57 Stage: RECOVERY Duration (min): 3 min : 4 sec HR (bpm): 82 SBP (mmHg): 125 DBP (mmHg): 57 Rest HR: 68 bpm Peak HR: 98 bpm Rest Sys BP: 145 mmHg Peak Sys BP: 138 mmHg Max Pred HR: 154 bpm % Max Pred HR: 64 % Target HR: 131 bpm Max RPP: 13,524 bpm*mmHg Total Time: 1 min : 0 sec Rest [place] BP: 72 mmHg Peak [place] BP: 65 mmHg Total Dose: 0.4 mg Resting ECG Sinus rhythm. Poor R-wave progression. Stress ECG No ischemic EKG changes with Lexiscan. Arrhythmias Occasional ventricular ectopy. Report Signatures
[2025-02-20 00:25] LABS: Glucose Point of Care 109 mg/dl (65-105)
[2025-02-20] MEDS: ACETAMINOPHEN 500 MG TABLET 1000 MG PO ×2 (01:05→20:21)
[2025-02-20 04:54] LABS: Basophils Absolute Auto 0.1 K/mm3 (0.0-0.1); Basophils Percent Auto 1.3 % (0.2-1.2); Eosinophils Absolute Auto 0.3 K/mm3 (0-0.3); Eosinophils Percent Auto 3.5 % (0-4.4); Hematocrit 42.7 % (37.0-47.0); Hemoglobin 13.4 g/dL (12.0-15.0); Immature Granulocyte Absolute 0.04 K/mm3 (0.00-0.031); Immature Granulocyte Percent A 0.5 % (0-0.5); Lymphocytes Absolute Auto 3.39 K/mm3 (0.9-3.2); Lymphocytes Percent Auto 42.5 % (18.3-44.2); Mean Corpuscular HGB Conc 31.4 g/dl (32-36); Mean Corpuscular Hemoglobin 29.9 pg (26-34); Mean Corpuscular Volume 95.3 fl (80-100); Mean Platelet Volume 10.6 fl (7.4-10.4); Monocytes Absolute Auto 0.8 K/mm3 (0.1-0.6); Monocytes Percent Auto 10.4 % (2.6-8.5); Neutrophils Absolute Auto 3.3 K/mm3 (1.3-6.7); Neutrophils Percent Auto 41.8 % (45.5-73.1); Platelet Count Result 338 k/mm3 (150-375); Red Blood Count 4.48 M/mm3 (4.2-5.4); Red Cell Distribution Width 17.5 % (11.5-14.5)
[2025-02-20 05:06] LABS: Anion Gap 6 mmol/L (4-12); Blood Urea Nitrogen 35 mg/dL (7-17); Calcium 9.6 mg/dL (8.4-10.2); Carbon Dioxide 22 mmol/L (22-30); Chloride 109 mmol/L (98-107); Estimated CRCL calculation 47 ml/min; Estimated Glomerular Filt Rate 54; Glucose 92 mg/dL (65-110); Potassium 4.4 mmol/L (3.4-5.0); Sodium 137 mmol/L (137-145)
[2025-02-20 05:09] LABS: Hemoglobin A1C 5.4 % (<5.7)
[2025-02-20 07:45] LABS: Glucose Point of Care 90 mg/dl (65-105)
--- NOTE | 2025-02-20 08:09 | P.PNIM_ITS ---
Progress Note: A&P Assessment and Plan (1) Chest pain: Qualifiers: Chest pain type: unspecified Qualified Code(s): R07.9 - Chest pain, unspecified Code(s): R07.9 - Chest pain, unspecified Status: Acute Assessment and Plan: * EKG, initial: Sinus bradycardia with first-degree AV block, rate 57, int raventricular conduction delay, possible anterior IA of indeterminate age. * EKG, repeat (1): Sinus rhythm with first-degree AV block, marked left axis deviation, LVH and ST-T change, possible septal IA of indeterminate age. * CXR: Clear lungs, status post CABG * Troponin: < 0.012 x3 * Continue Plavix and Eliquis * SL nitro PRN * no previous echo or stress test on file * telemetry monitoring * Cardiology consulted * NM Stress test (2) Diabetes: Qualifiers: Diabetes mellitus complication status: without complication Diabetes mellitus correction insulin use: without termite control servicer use Diabetes mellitus type: type 2 Qualified Code(s): E11.9 - Type 2 diabetes mellitus without complications Code(s): E11.9 - Type 2 diabetes mellitus without complications Status: Chronic Assessment and Plan: * hypoglycemia protocol * POC blood glucose ACHS * home medication: Jardiance * correct regimen ordered - mod dose TIDWM, based off BMI * A1C 5.4% (02/20) (3) HTN (hypertension): Qualifiers: Hypertension type: primary hypertension Qualified Code(s): I10 - Essential (primary) hypertension Code(s): I10 - Essential (primary) hypertension Status: Chronic Assessment and Plan: * chronic, currently 118/83 * continue home medications: Metoprolol, Entresto, spironolactone * monitor (4) Coronary artery disease: Code(s): I25.10 - Atherosclerotic heart disease of [place] coronary artery without angina pectoris Status: Acute Assessment and Plan: * S/p CABG 2022 * Continue Plavix 75mg PO daily (5) Chronic systolic heart failure: Code(s): I50.22 - Chronic systolic (congestive) heart failure Status: Acute Assessment and Plan: * Monitor vital signs, I&Os, BUN/creatinine, daily weights, neuro status and patient is a fall risk * Monitor serum electrolytes, Keep serum Potassium>4 and serum Magnesium>2 and CBC * Continue Entresto 24-26mg PO BID, Spironolactone 25mg daily, Metoprolol 25MG Daily, Jardiance 10mg Daily * Lasix 20mg Daily * Cardiology following (6) Paroxysmal atrial fibrillation: Code(s): I48.0 - Paroxysmal atrial fibrillation Status: Acute Assessment and Plan: * Continue Eliquis 5mg PO BID (7) HLD (hyperlipidemia): Code(s): E78.5 - Hyperlipidemia, unspecified Status: Acute Assessment and Plan: * Adding atorvastatin 80mg daily Plan Diet: Heart healthy GI Prophylaxis: Not currently indicated DVT Prophylaxis: Eliquis IV fluids: None Lines/Tubes: Peripheral IV Code Status: Full code Subjective Date/time seen: 02/20/25 08:09 Interval history: 64 y/o F with PMH of CAD, CABG, stroke (residual LUE weakness), HLD, valve replacement, asthma, GERD, hernia, dementia, arthritis, diabetes, anxiety/depression, bipolar disorder, and ovarian cancer s/p oophorectomy 2000 presents here with chest pain. 02/20/2025 Patient sitting comfortably in bed at time of examination. She denies any chest pain, shortness a breath, nausea/vomiting, or abdominal pain this time. She states that she has not had any chest pain since yesterday afternoon. Cardiology has been consulted regarding worsening chest pain upon exertion, stress test have been ordered and are pending at this time. Review of Systems Review of Systems: All systems reviewed & are unremarkable except as noted in HPI and below Exam Const: General: comfortable and no acute distress Other: , female, nontoxic appearance HENMT: Face/Nose/Sinus: Normal nares present Mouth: Yes moist mucous membranes Eyes: General: appearance normal, both eyes and all related structures Sclera: sclerae normal Pupils: Equal, round and reactive pupils present EOM: EOMs intact bilaterally Resp: Effort & Inspection: normal respiratory effort Auscultation: clear to auscultation bilaterally Cardio: Rate: regular rate Rhythm: regular rhythm Other: S1-S2 present without murmur, rub, ectopy GI: Other: Abdomen soft, nondistended, nontender. Normoactive bowel sounds in all quadrants. Skin: General skin exam: normal color and no rashes or lesions noted Wounds: no wounds Neuro: Cranial nerves: Yes Equal, round and reactive pupils present Speech: normal speech Motor exam (neuro): 5/5 motor strength present throughout Sensory Exam: normal sensation Other: A&O x4 Extrem: General: normal to inspection Psych: Mental Status: mental status grossly normal Affect: normal affect Other: Good insight and judgment, pleasant Objective Data Vital Signs Vital Signs: Vital Signs - 24 hr 02/19/25 08:46 02/19/25 08:48 02/19/25 08:52 Temperature 97.9 F Pulse Rate 68 61 Respiratory Rate 12 12 Blood Pressure 172/62 H 172/62 H Pulse Oximetry 100 100 100 Oxygen Delivery Room Air Room Air 02/19/25 09:58 02/19/25 10:07 02/19/25 10:36 Temperature Pulse Rate 76 75 84 Respiratory Rate 20 21 H 23 H Blood Pressure 152/75 H 121/84 112/70 Pulse Oximetry 98 98 Oxygen Delivery 02/19/25 10:41 02/19/25 10:56 02/19/25 11:11 Temperature Pulse Rate 88 83 83 Respiratory Rate 25 H 23 H 21 H Blood Pressure 115/75 125/75 127/66 Pulse Oximetry Oxygen Delivery 02/19/25 11:16 02/19/25 11:51 02/19/25 13:59 Temperature Pulse Rate 95 83 70 Respiratory Rate 17 20 20 Blood Pressure 131/68 131/75 117/59 L Pulse Oximetry 97 100 Oxygen Delivery 02/19/25 14:50 02/19/25 17:18 02/19/25 19:30 Temperature Pulse Rate 72 71 67 Respiratory Rate 14 16 22 H Blood Pressure 156/68 H 155/77 H 119/43 L Pulse Oximetry 97 100 100 Oxygen Delivery 02/19/25 19:38 02/19/25 19:38 02/19/25 20:00 Temperature 98.0 F Pulse Rate 67 67 73 Respiratory Rate 22 H 20 Blood Pressure 119/43 L 118/83 Pulse Oximetry 100 97 Oxygen Delivery 02/19/25 20:29 02/19/25 22:00 02/19/25 23:15 Temperature 98.1 F Pulse Rate 72 68 Respiratory Rate 20 Blood Pressure 133/62 Pulse Oximetry 99 Oxygen Delivery Room Air 02/20/25 00:00 02/20/25 00:00 02/20/25 02:00 Temperature Pulse Rate 71 64 Respiratory Rate Blood Pressure Pulse Oximetry Oxygen Delivery Room Air 02/20/25 03:15 02/20/25 04:00 02/20/25 04:47 Temperature 98.2 F Pulse Rate 69 62 Respiratory Rate 16 Blood Pressure 123/81 Pulse Oximetry 98 Oxygen Delivery Room Air 02/20/25 06:00 02/20/25 07:50 Temperature 98.5 F Pulse Rate 72 68 Respiratory Rate 18 Blood Pressure 135/59 L Pulse Oximetry 95 Oxygen Delivery Intake/Output Intake/Output: Intake & Output 02/17/25 02/18/25 02/19/25 02/20/25 23:59 23:59 23:59 23:59 Intake Total 1000 Output Total 600 Balance 400 Meds/Results Medications: Active Medications Generic Name Dose Route Start Last Admin Trade Name Freq PRN Reason Stop Dose Admin Acetaminophen 1,000 mg 02/20/25 00:33 02/20/25 01:05 Acetaminophen 500 Mg Tablet PO 1,000 mg Q6H PRN Administration Mild Pain (1-3) or Fever Apixaban 5 mg 02/20/25 09:00 Apixaban 5 Mg Tablet PO Q12HR [facility] Clopidogrel Bisulfate 75 mg 02/20/25 09:00 Clopidogrel Bisulfate 75 Mg Tablet PO DAILY [facility] Dextrose 12.5 gm 02/19/25 22:52 Dextrose 50% 25 Gm/50 Ml Syringe IV PUSH PRN PRN Hypoglycemia Protocol Empagliflozin 10 mg 02/20/25 09:00 Empagliflozin 10 Mg Tablet PO DAILY [facility] Furosemide 20 mg 02/20/25 09:00 Furosemide 20 Mg Tablet PO DAILY [facility] Glucagon 1 mg 02/19/25 22:52 Glucagon For Inj 1 Mg Vial IM PRN PRN Hypoglycemia Protocol Glucose 15 gm 02/19/25 22:52 Glucose Oral Gel 15 Gm Of Glucse In 37.5 Gm Tube PO PRN PRN Hypoglycemia Protocol Dextrose 1,000 mls @ 100 mls/hr 02/19/25 22:52 Dextrose 5% 1,000 Ml IVPB PRN PRN Hypoglycemia Protocol Insulin Aspart 3 - 6 units 02/20/25 08:00 Insulin Aspart (*Bkc) 100 Units/Ml SUB-Q TIDWM [facility] Protocol Metoprolol Succinate 12.5 mg 02/20/25 09:00 Metoprolol Succinate Ext Rel 12.5 Mg Tabcr PO DAILY [facility] Nitroglycerin 0.4 mg 02/19/25 15:04 Nitroglycerin Sl 0.4 Mg Tablet SUBLINGUAL Q5MIN PRN Chest Pain Sacubitril/Valsartan 1 tab 02/20/25 09:00 Sacubitril/Valsartan 24-26 Mg Tablet PO BID [facility] Spironolactone 25 mg 02/20/25 09:00 Spironolactone 25 Mg Tablet PO DAILY [facility] Radiology Results: ITS Impressions Chest X-Ray 02/19/25 09:21 Impression: Clear lungs. Status post CABG. Labs Labs: Laboratory Results - last 24 hr 02/19/25 02/19/25 02/19/25 09:00 09:54 12:06 WBC 9.1 RBC 5.00 Hgb 15.0 Hct 48.0 H MCV 96.0 MCH 30.0 MCHC 31.3 L RDW 17.6 H Plt Count 410 H MPV 10.9 H Immature Gran % (Auto) 0.5 Neut % (Auto) 56.5 Lymph % (Auto) 30.3 [place] % (Auto) 9.1 H Eos % (Auto) 2.3 Baso % (Auto) 1.3 H Lymph # (Auto) 2.77 [place] # (Auto) 0.8 H Eos # (Auto) 0.2 Baso # (Auto) 0.1 Abs Immat Gran (auto) 0.05 H Absolute Neuts (auto) 5.2 Absolute Nucleated RBC 0.000 Nucleated RBC % 0.0 PT 16.5 H INR 1.3 APTT 24.2 Sodium 141 Potassium 4.6 Chloride 111 H Carbon Dioxide 18 L Anion Gap 12 BUN 30 H Creatinine 0.92 Estim Creat Clear Calc 53 Estimated GFR > 60 Glucose 111 H POC Capillary Glucose Hemoglobin A1c Calcium 10.3 H Total Bilirubin 0.7 AST 23 ALT 16 Alkaline Phosphatase 88 Troponin I < 0.012 < 0.012 NT-Pro-B Natriuret Pep 2050 H Total Protein 8.0 Albumin 4.8 Lipase 264 02/19/25 02/20/25 02/20/25 15:00 00:23 04:15 WBC 8.0 RBC 4.48 Hgb 13.4 Hct 42.7 MCV 95.3 MCH 29.9 MCHC 31.4 L RDW 17.5 H Plt Count 338 MPV 10.6 H Immature Gran % (Auto) 0.5 Neut % (Auto) 41.8 L Lymph % (Auto) 42.5 [place] % (Auto) 10.4 H Eos % (Auto) 3.5 Baso % (Auto) 1.3 H Lymph # (Auto) 3.39 H [place] # (Auto) 0.8 H Eos # (Auto) 0.3 Baso # (Auto) 0.1 Abs Immat Gran (auto) 0.04 H Absolute Neuts (auto) 3.3 Absolute Nucleated RBC 0.000 Nucleated RBC % 0.0 PT INR APTT Sodium 137 Potassium 4.4 Chloride 109 H Carbon Dioxide 22 Anion Gap 6 BUN 35 H Creatinine 1.02 H Estim Creat Clear Calc 47 Estimated GFR 54 L Glucose 92 POC Capillary Glucose 109 H Hemoglobin A1c 5.4 Calcium 9.6 Total Bilirubin AST ALT Alkaline Phosphatase Troponin I < 0.012 NT-Pro-B Natriuret Pep Total Protein Albumin Lipase 02/20/25 07:26 WBC RBC Hgb Hct MCV MCH MCHC RDW Plt Count MPV Immature Gran % (Auto) Neut % (Auto) Lymph % (Auto) [place] % (Auto) Eos % (Auto) Baso % (Auto) Lymph # (Auto) [place] # (Auto) Eos # (Auto) Baso # (Auto) Abs Immat Gran (auto) Absolute Neuts (auto) Absolute Nucleated RBC Nucleated RBC % PT INR APTT Sodium Potassium Chloride Carbon Dioxide Anion Gap BUN Creatinine Estim Creat Clear Calc Estimated GFR Glucose POC Capillary Glucose 90 Hemoglobin A1c Calcium Total Bilirubin AST ALT Alkaline Phosphatase Troponin I NT-Pro-B Natriuret Pep Total Protein Albumin Lipase Quality VTE Prophylaxis VTE prophylaxis: pharmacologic ordered
[2025-02-20] MEDS: APIXABAN 5 MG TABLET PO ×2 (08:57→20:21)
[2025-02-20] MEDS: FUROSEMIDE 20 MG TABLET PO (08:58)
[2025-02-20] MEDS: SACUBITRIL/VALSARTAN 24-26 MG TABLET 1 TAB PO ×2 (08:58→16:18)
[2025-02-20] MEDS: CLOPIDOGREL BISULFATE 75 MG TABLET PO (08:58)
[2025-02-20] MEDS: SPIRONOLACTONE 25 MG TABLET PO (08:58)
[2025-02-20] MEDS: METOPROLOL SUCCINATE EXT REL 12.5 MG TABCR PO (08:58)
[2025-02-20] MEDS: EMPAGLIFLOZIN 10 MG TABLET PO (08:59)
[2025-02-20 11:29] LABS: Glucose Point of Care 83 mg/dl (65-105)
--- NOTE | 2025-02-20 13:21 | PM.CNCAR ---
Assessment and Plan Assessment and plan (1) Chest pain: Qualifiers: Chest pain type: unspecified Qualified Code(s): R07.9 - Chest pain, unspecified Code(s): R07.9 - Chest pain, unspecified Status: Acute (2) Paroxysmal atrial fibrillation: Code(s): I48.0 - Paroxysmal atrial fibrillation Status: Acute (3) HTN (hypertension): Qualifiers: Hypertension type: primary hypertension Qualified Code(s): I10 - Essential (primary) hypertension Code(s): I10 - Essential (primary) hypertension Status: Chronic (4) Chronic systolic heart failure: Code(s): I50.22 - Chronic systolic (congestive) heart failure Status: Acute Plan 64-year-old woman with CAD status post CABG (triple bypass at [facility] in 08/2024), chronic systolic heart failure (LVEF 35%), paroxysmal atrial fibrillation, diabetes, hypertension, hyperlipidemia, and schizophrenia presented with chest discomfort Chest pain -unlikely secondary to obstructive coronary artery disease -however she did state that she was offered nuclear stress test and would like to have that done prior to being discharged -troponin negative x3 CAD status post CABG -continue Plavix 75 mg p.o. daily Chronic systolic heart failure -continue Entresto 24-26 mg p.o. b.i.d., spironolactone 25 mg p.o. daily, metoprolol succinate 25 mg p.o. daily, and Jardiance 10 mg p.o. daily -continue Lasix 20 mg p.o. daily Paroxysmal atrial fibrillation -continue Eliquis 5 mg p.o. b.i.d. Hyperlipidemia -will add atorvastatin 80 mg every evening History of Present Illness History of Present Illness Consult date/time: 02/20/25 13:21 Requesting physician: Caio Perry PABrainC Consult reason: chest pain Reason For Visit: CP, Hx cabg Narrative: 64-year-old woman with CAD status post CABG (triple bypass at [facility] in 08/2024), chronic systolic heart failure (LVEF 35%), paroxysmal atrial fibrillation, diabetes, hypertension, hyperlipidemia, and schizophrenia presented with chest discomfort. Left-sided sharp as well as pressure-like chest pain mom that has been relatively stable since her bypass surgery. She would noted that sometimes with stressful events at home such as the passing of her daughter's father, the chest pain seems to come on. She has not noted that it worsens or increase in frequency recently. However last evening the pain woke her up and was of worsen intensity and severity prompting her to come to the emergency room for further evaluation. Has not noted decline in functional status secondary to exertional cardiopulmonary limitations. Currently chest pain-free. Review of Systems Cardiovascular: Cardiovascular: Reports as per HPI Respiratory: Respiratory: Reports as per HPI [facility] Past Medical History Medical History (Updated 02/20/25 @ 13:30 by Tariq Chilel MD) Bipolar disorder Depression Anxiety History of primary malignant neoplasm of left ovary Diabetes Arthritis Hernia GERD (gastroesophageal reflux disease) Asthma HTN (hypertension) HLD (hyperlipidemia) Dementia Coronary artery disease Surgical History Surgical History (Updated 02/19/25 @ 22:50 by Della Cueva APRN) History of left oophorectomy History of hysterectomy History of heart valve replacement Hx of CABG August 2024 Social History Social History Smoking packs per day: 0.25 Smoking cigarettes per day: 5.0 Smoking status: Former smoker Tobacco type: cigarettes Smoking end date: 07/02/24 Alcohol intake: current Drinks per week: 1 Substance use: current Substance use type: marijuana Do You Feel Safe in your Home?: Yes Lack of Transportation: No Lack of Food: Never True Current Housing: I Have Housing Concerned About Future Housing: No Difficulty Paying Gas/Electric Bills: No Difficulty Paying for Meds: No Currently Unemployed: No Education: High School Diploma/GED Difficulty w/ Childcare or Family Care: No Spiritual care concerns: No Meds Home Medications and Allergies Home Medications ?Medication ?Instructions ?Recorded ?Confirmed ?Type apixaban 5 mg tablet (Eliquis) 5 mg PO BID 02/19/25 02/19/25 History clopidogrel 75 mg tablet 75 mg PO DAILY 02/19/25 02/19/25 History empagliflozin 10 mg tablet 10 mg PO DAILY 02/19/25 02/19/25 History (Jardiance) furosemide 20 mg tablet 20 mg PO DAILY 02/19/25 02/19/25 History metoprolol succinate 25 mg 12.5 mg PO DAILY 02/19/25 02/19/25 History tablet,extended release 24 hr sacubitril 24 mg-valsartan 26 mg 1 tablet PO BID 02/19/25 02/19/25 History tablet (Entresto) spironolactone 25 mg tablet 25 mg PO DAILY 02/19/25 02/19/25 History Allergies Allergy/AdvReac Type Severity Reaction Status Date / Time aspirin Allergy Mild Itching Verified 02/19/25 08:50 latex Allergy Mild Hives Verified 02/19/25 08:50 Vital Signs Vital Signs - 24 hr 02/19/25 13:59 02/19/25 14:50 02/19/25 17:18 Temperature Pulse Rate 70 72 71 Respiratory Rate 20 14 16 Blood Pressure 117/59 L 156/68 H 155/77 H Pulse Oximetry 100 97 100 Oxygen Delivery 02/19/25 19:30 02/19/25 19:38 02/19/25 19:38 Temperature Pulse Rate 67 67 67 Respiratory Rate 22 H 22 H Blood Pressure 119/43 L 119/43 L Pulse Oximetry 100 100 Oxygen Delivery 02/19/25 20:00 02/19/25 20:29 02/19/25 22:00 Temperature 36.7 C Pulse Rate 73 72 Respiratory Rate 20 Blood Pressure 118/83 Pulse Oximetry 97 Oxygen Delivery Room Air 02/19/25 23:15 02/20/25 00:00 02/20/25 00:00 Temperature 36.7 C Pulse Rate 68 71 Respiratory Rate 20 Blood Pressure 133/62 Pulse Oximetry 99 Oxygen Delivery Room Air 02/20/25 02:00 02/20/25 03:15 02/20/25 04:00 Temperature Pulse Rate 64 69 Respiratory Rate Blood Pressure Pulse Oximetry Oxygen Delivery Room Air 02/20/25 04:47 02/20/25 06:00 02/20/25 07:50 Temperature 36.8 C 36.9 C Pulse Rate 62 72 68 Respiratory Rate 16 18 Blood Pressure 123/81 135/59 L Pulse Oximetry 98 95 Oxygen Delivery 02/20/25 08:00 02/20/25 08:00 02/20/25 08:58 Temperature Pulse Rate 73 80 Respiratory Rate Blood Pressure Pulse Oximetry Oxygen Delivery Room Air 02/20/25 10:00 02/20/25 11:42 02/20/25 12:00 Temperature 36.6 C Pulse Rate 68 59 L Respiratory Rate 20 Blood Pressure 148/60 H Pulse Oximetry 100 Oxygen Delivery Room Air 02/20/25 12:00 Temperature Pulse Rate 59 L Respiratory Rate Blood Pressure Pulse Oximetry Oxygen Delivery Exam Const: General: comfortable HENMT: Mouth: Yes moist mucous membranes Eyes: EOM: EOMs intact bilaterally Neck: Neck: no JVD Resp: Effort & Inspection: normal respiratory effort Auscultation: clear to auscultation bilaterally Cardio: Rate: regular rate Rhythm: regular rhythm GI: GI Palp: Yes Soft to palpation Neuro: Speech: normal speech Extrem: General: no pedal edema Results Labs and Meds 02/20/25 04:15 02/20/25 04:15 Lab results: Cardiac Enzymes 02/19/25 Range/Units 15:00 Troponin I < 0.012 (0.000-0.034) ng/mL CBC 02/20/25 Range/Units 04:15 WBC 8.0 (4.5-10.0) K/mm3 RBC 4.48 (4.2-5.4) M/mm3 Hgb 13.4 (12.0-15.0) g/dL Hct 42.7 (37.0-47.0) % Plt Count 338 (150-375) k/mm3 Lymph # (Auto) 3.39 H (0.9-3.2) K/mm3 [place] # (Auto) 0.8 H (0.1-0.6) K/mm3 Eos # (Auto) 0.3 (0-0.3) K/mm3 Baso # (Auto) 0.1 (0.0-0.1) K/mm3 Comprehensive Metabolic Panel 02/20/25 Range/Units 04:15 Sodium 137 (137-145) mmol/L Potassium 4.4 (3.4-5.0) mmol/L Chloride 109 H (98-107) mmol/L Carbon Dioxide 22 (22-30) mmol/L BUN 35 H (7-17) mg/dL Creatinine 1.02 H (0.7-1.0) mg/dL Glucose 92 (65-110) mg/dL Calcium 9.6 (8.4-10.2) mg/dL Intake and Output 02/19/25 02/20/25 02/20/25 23:59 07:59 15:59 Intake Total 1000 400 Output Total 600 Balance 400 400 Intake: Oral 1000 400 Output: Urine 600 Patient Weight 02/20/25 23:59 Weight 78.1 kg
[2025-02-20 15:38] LABS: Glucose Point of Care 126 mg/dl (65-105)
[2025-02-20] MEDS: ATORVASTATIN 40 MG TABLET 80 MG PO (16:18)
[2025-02-20 20:32] LABS: Glucose Point of Care 87 mg/dl (65-105)
[2025-02-21] VITALS (10 sets, daily range): BP systolic 125–149; BP diastolic 52–77; PULSE 64–99; RESP 17–20; TEMP 36.6–36.9; O2SAT 94–100
[2025-02-21 07:51] LABS: Glucose Point of Care 106 mg/dl (65-105)
[2025-02-21] MEDS: METOPROLOL SUCCINATE EXT REL 12.5 MG TABCR PO (08:47)
[2025-02-21] MEDS: FUROSEMIDE 20 MG TABLET PO (08:47)
[2025-02-21] MEDS: APIXABAN 5 MG TABLET PO (08:47)
[2025-02-21] MEDS: SPIRONOLACTONE 25 MG TABLET PO (08:47)
[2025-02-21] MEDS: CLOPIDOGREL BISULFATE 75 MG TABLET PO (08:47)
[2025-02-21] MEDS: EMPAGLIFLOZIN 10 MG TABLET PO (08:47)
[2025-02-21] MEDS: SACUBITRIL/VALSARTAN 24-26 MG TABLET 1 TAB PO ×2 (08:47→17:15)
[2025-02-21 11:35] LABS: Glucose Point of Care 183 mg/dl (65-105)
--- NOTE | 2025-02-21 11:51 | PM.DS ---
DS: Admitting Diagnosis Discharge Date 02/21/2025 Admitting Diagnosis Chest pain DS: Discharge Diagnosis Discharge Diagnosis (1) Chest pain: Qualifiers: Chest pain type: unspecified Qualified Code(s): R07.9 - Chest pain, unspecified Code(s): R07.9 - Chest pain, unspecified Status: Acute (2) Diabetes: Qualifiers: Diabetes mellitus complication status: without complication Diabetes mellitus [facility] attendant insulin use: without shelter use Diabetes mellitus type: type 2 Qualified Code(s): E11.9 - Type 2 diabetes mellitus without complications Code(s): E11.9 - Type 2 diabetes mellitus without complications Status: Chronic (3) HTN (hypertension): Qualifiers: Hypertension type: primary hypertension Qualified Code(s): I10 - Essential (primary) hypertension Code(s): I10 - Essential (primary) hypertension Status: Chronic (4) Coronary artery disease: Code(s): I25.10 - Atherosclerotic heart disease of [place] coronary artery without angina pectoris Status: Acute (5) Chronic systolic heart failure: Code(s): I50.22 - Chronic systolic (congestive) heart failure Status: Acute (6) Paroxysmal atrial fibrillation: Code(s): I48.0 - Paroxysmal atrial fibrillation Status: Acute (7) HLD (hyperlipidemia): Code(s): E78.5 - Hyperlipidemia, unspecified Status: Acute Plan Diet: Heart healthy GI Prophylaxis: Not currently indicated DVT Prophylaxis: Eliquis IV fluids: None Lines/Tubes: Peripheral IV Code Status: Full code DS: Summary Hospital Course Reason for hospitalization: Chest pain Hospital Course: 64 y/o F with PMH of CAD, CABG, stroke (residual LUE weakness), HLD, valve replacement, asthma, GERD, hernia, dementia, arthritis, diabetes, anxiety/depression, bipolar disorder, and ovarian cancer s/p oophorectomy 2000 presents here with chest pain. The patient presents here from home for further evaluation of left-sided chest pain. She reports onset post CABG in August of 2024. She reports that her content assistant told her this is not an unexpected finding, however she became concerned when the pain continued to worsen overnight into this morning and she began having radiation into her upper extremity. Last night while she was asleep. She describes the pain as progressive, pressure, sharp, with radiation into her left upper extremity, intermittent, 30 mins to 2 hrs, aggravated by exertion, and alleviated by resting and occasionally heat. She reports associated nausea without vomiting, shortness of breath, diaphoresis, fatigue, GERD-like symptoms. She denies palpitations. Initial VS at presentation: 97.9? F, HR 68, R 12, 172/62, and 100% on RA. ED workup showed: No leukocytosis, no anemia, INR 1.3, creatinine 0.92 and GFR >60, glucose 111, BNP 2050, and initial troponin negative. CXR showed clear lungs and s/p CABG. Initial EKG showed sinus bradycardia with first-degree AV block, intraventricular conduction delay, possible anterior OK of indeterminate age, rate 57. Cardiology consultation, recommendation nuclear medicine stress test/Lexiscan stress test. NM stress test showed no abnormal ST-T-wave changes with Lexiscan. Mild reversal ischemia at the apical and apical inferior segments, along with moderate to severe nonreversible infarct of the apical anterior and mild anterior segments. Global hypokinesis with mild to moderate decreased left ventricular ejection fraction measuring 33%. These findings likely chronic or as a result of previous CABG. Cardiology otherwise recommended continuing Plavix, Entresto, spironolactone, metoprolol, Jardiance, Lasix, and Eliquis. They also recommended adding atorvastatin 80 mg to daily regimen. Otherwise Cardiology signed off for discharge this time with appropriate follow-up with her content assistant in the outpatient setting. Blood work is otherwise been unremarkable and vital signs have been stable throughout her hospitalization. Patient expressed interest in being discharged and she is stable otherwise to be discharged at this time. Plan for discharge home with appropriate follow-up management with her PCP and content assistant in the outpatient setting. Status at Discharge Functional status at discharge: independent ambulation Overall status at discharge: patient is back to baseline Time Spent with Patient Time attestation: Total time spent providing and/or coordinating discharge services: 35 Exam Const: General: comfortable and no acute distress Other: , female, nontoxic appearance HENMT: Face/Nose/Sinus: Normal nares present Mouth: Yes moist mucous membranes Eyes: General: appearance normal, both eyes and all related structures Sclera: sclerae normal Pupils: Equal, round and reactive pupils present EOM: EOMs intact bilaterally Resp: Effort & Inspection: normal respiratory effort Auscultation: clear to auscultation bilaterally Cardio: Rate: regular rate Rhythm: regular rhythm Other: S1-S2 present without murmur, rub, ectopy GI: Other: Abdomen soft, nondistended, nontender. Normoactive bowel sounds in all quadrants. Skin: General skin exam: normal color and no rashes or lesions noted Wounds: no wounds Neuro: Cranial nerves: Yes Equal, round and reactive pupils present Speech: normal speech Motor exam (neuro): 5/5 motor strength present throughout Sensory Exam: normal sensation Other: A&O x4 Extrem: General: normal to inspection Psych: Mental Status: mental status grossly normal Affect: normal affect Other: Good insight and judgment, pleasant DS: Data Data Completed and Pending Labs on day of discharge: Labs from last 24 hours 02/21/25 02/21/25 02/20/25 11:22 07:39 20:28 POC Capillary Glucose 183 H 106 H 87 02/20/25 15:18 POC Capillary Glucose 126 H Discharge Plan Discharge Attending physician on discharge: Jennifer Haney Consulting providers: Kevin Boss; Caio Perry Discharging Clinician: Caio Perry Anticipated Discharge Date/Time: 02/21/25 11:44 Patient Disposition: Home Activity: as tolerated Diet: as tolerated Discharge Instructions: Discharge disposition: Stable Take medications as prescribed. I will be giving a prescription for atorvastatin (Lipitor) 80 mg to be taken once a day in the evenings. Monitor blood pressures Take caution while standing, rising, or moving Change positions slowly taking a break between each position change If you standing feel dizzy sit back down and take a break Encouraged to continue with yearly vaccinations Return to the emergency department if he developed sudden shortness of breath, chest pain, nausea, vomiting, upset stomach or intractable diarrhea Return to the emergency department if you develop fever greater than 101.5 Follow-up with the primary care physician within 1-2 weeks Thank you for [facility] for your healthcare needs Patient Instructions: Antibiotic Form, Chest Pain (GEN) Patient Language: Indian Stand Alone Forms: General Discharge Information Follow-up/Referrals: UNKNOWN,DOCTOR [Primary Care Provider] - Discharge Medications: New atorvastatin [Lipitor] 80 mg tablet 80 mg PO HS Qty: 30 0RF Continued Jardiance 10 mg tablet 10 mg PO DAILY furosemide 20 mg tablet 20 mg PO DAILY Entresto 24-26 mg tablet 1 tablet PO BID clopidogrel 75 mg tablet 75 mg PO DAILY spironolactone 25 mg tablet 25 mg PO DAILY metoprolol succinate 25 mg tablet extended release 24 hr 12.5 mg PO DAILY Eliquis 5 mg tablet 5 mg PO BID Date of admission: 02/19/25 15:04 Primary Care Provider: UNKNOWN,DOCTOR Admitting Provider: Jn Gonzalez Attending physician on admission: Jn Gonzalez Condition: Stable Quality VTE Prophylaxis VTE prophylaxis: pharmacologic ordered
[2025-02-21 15:40] LABS: Glucose Point of Care 125 mg/dl (65-105)
[2025-02-21] MEDS: ATORVASTATIN 40 MG TABLET 80 MG PO (17:15)
== END 2025-02-21 18:35 | disposition home or self-care (01) ==
LOC: ANHED 17:25 → ANHIMU 02-20 03:09
PROVIDERS: Emergency Medicine; Student in an Organized Health Care Education/Training Program; Admitting Provider General Practice; Emergency Provider Physician Assistant; Visit Provider Family Medicine
DX: R07.9 Chest pain, unspecified (principal); I25.10 Atherosclerotic heart disease of native coronary artery without angina pectoris; I11.0 Hypertensive heart disease with heart failure; I50.22 Chronic systolic (congestive) heart failure; I48.0 Paroxysmal atrial fibrillation; I69.334 Monoplegia of upper limb following cerebral infarction affecting left non-dominant side; E78.5 Hyperlipidemia, unspecified; J45.909 Unspecified asthma, uncomplicated; E11.9 Type 2 diabetes mellitus without complications; K21.9 Gastro-esophageal reflux disease without esophagitis; F03.90 Unspecified dementia, unspecified severity, without behavioral disturbance, psychotic disturbance, mood disturbance, and anxiety; M19.90 Unspecified osteoarthritis, unspecified site; F31.9 Bipolar disorder, unspecified; F41.9 Anxiety disorder, unspecified; Z79.01 Long term (current) use of anticoagulants; Z79.02 Long term (current) use of antithrombotics/antiplatelets; Z79.84 Long term (current) use of oral hypoglycemic drugs; Z79.899 Other long term (current) drug therapy; Z87.891 Personal history of nicotine dependence; Z85.43 Personal history of malignant neoplasm of ovary; Z90.721 Acquired absence of ovaries, unilateral; Z95.1 Presence of aortocoronary bypass graft; Z95.2 Presence of prosthetic heart valve
CPT/HCPCS: 36415; 71046; 78452; 80048; 80053; 82948; 83036; 83690; 83880; 84484; 85025; 85610; 85730; 93005; 93017; 99285; A9270; A9502; G0378; J2785

== ENCOUNTER 2025-07-01 10:04 | Outpatient (CLI) | payer OTHER, SELFPAY ==
--- NOTE | ~2025-07-01 | XR_ITS ---
XR lumbar spine 2-3V Indication: chronic LBP, fall downstairs years ago, numbness/tingle Comparison: None Findings: The vertebral heights are intact. No fracture or subluxation. Moderate loss of disc height throughout Soft tissues unremarkable Impression: No acute abnormality. Reviewed, dictated and finalized at location P. Impression: No acute abnormality.
--- OUTSIDE RECORDS SUMMARY | 2025-07-01 10:52 | XMS_ITS | Encounter Summary ---
Author Organization [facility] Healthcare Address [address] [place] [address] Care Team Providers Care Blackener Name Role Phone Valerie Gastelum DO Unavailable No, Physician Primary Care Provider [phone] Encounter Details Date Type Department Care Team (Late st Contact Info) Description 02/27/2025 Orders Only [facility] Health Information Management [address] [place] [id number] Scanning, Provider Social History Tobacco Use Types Packs/Day Years Used Date Smoking Tobacco: Former Cigarettes 1 51 Smokeless Tobacco: Never Comments:51 pack hx /2022-fa ther history lung cancer Alcohol Use Standard Drinks/Week Comments No 0 (1 standard drink = 0.6 oz pur e alcohol) [facility] Utilities Answer Date Recorded In the past 12 months has [employer], gas, oil, or water company threatened to shut off services in your home? No 11/04/2024 Social Connection and Isolation Panel Answer Date Recorded In a typical week, how many times do you talk on the phone with family, friends, or neighbors? Three times a week 11/04/2024 How often do you get togethe r with friends or relatives? Three times a week 11/04/2024 How often do you attend chur ch or sabianism services? 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 Gender Identity Not on file Sexual Orientation Not on file documented as of this encounter Plan of Treatment Not on file documented as of this encounter Procedures Procedure Name Priority Date/Time Associated Diagnosis Comments SCAN - RADIOLOGY/IMAGING 02/27/2025 9:29 PM CDT documented in this encounter Results * SCAN - RADIOLOGY/IMAGING (02/27/2025 9:29 PM CDT) Anatomical Region Laterality Modality Other us Provider Scanning Final Result documented in this encounter Visit Diagnoses Not on filedocumented in this encounter Care Teams Blackener Relationship Specialty Start Date End Date No, Physician PCP - General 02/19/25 Valerie Gastelum DO [facility] [address] [place] [address] Consulting Physician Cardiology 02/20/25 documented as of this encounter
--- OUTSIDE RECORDS SUMMARY | 2025-07-01 10:53 | XMS_ITS | Clinical Summary ---
Author Organization [facility] [address] [facility] Address [address] [place] [address] Care Team Providers Care Account Development Associate Name Role Phone Valerie Gastelum DO Unavailable No, Physician Primary Care Provider [phone] Allergies Active Allergy Reactions Criticality Noted Date [...] 11/23/2021 Assessment & Plan (11/23/2021 3:22 PM SQL REPORT ANALYST): Patient recently had fit testing for stool which was normal Will get CT chest for lung cancer screening, mammogram previously ordered, patient advised to get this done as soon as possible Will also place referral for GI evaluation Screening for lung cancer 11/23/2021 Urinary frequency 11/23/2021 Assessment & Plan (11/23/2021 3:23 PM SQL REPORT ANALYST): Will check UA with reflex to microscopy and culture If evidence of UTI will treat as needed Screening for thyroid disorder 11/23/2021 Assessment & Plan (11/23/2021 3:29 PM SQL REPORT ANALYST): Will get routine lab testing today Discussed importance of getting proper vaccinations with patient including COVID vaccination. Patient will think about it Advised to see Gynecology for Pap smear Fit testing negative Will get screening CT scan for lung cancer Ophthalmology referral placed for a dilated eye exam Cough 2021 Assessment & Plan (2021 5:33 PM SQL REPORT ANALYST): Patient has chronic cough with strong history [...] losartan Assessment & Plan (11/23/2021 3:11 PM SQL REPORT ANALYST): Patient pressure high initially on presentation. Improved after patient stayed in room for bit Advised to make blood pressure log at home, may need to adjust medications depending on results Assessment & Plan (2021 5:34 PM SQL REPORT ANALYST): Patient has chronic hypertension controlled with losartan [...] 09/15/2021 Assessment & Plan (11/23/2021 3:24 PM SQL REPORT ANALYST): Records from [place] reviewed patient has MRI thoracic spine with that degenerative joint disease Patient was following with Orthopedics there but would wish to establish care with someone over here Will place referral for Orthopedics over here Assessment & Plan (2021 5:30 PM SQL REPORT ANALYST): Records sent over from [place] clinic reviewed patient has back x-rays which show mild degenerative disease however no MRI present. Discussed with patient she says she definitely had an MRI recently Will obtain records of MRI Will continue Tylenol 1 g q.8 hours p.r.n. for pain Patient advised to continue ice packs as she feels these help her pain Assessment & Plan (09/15/2021 2:52 PM SQL REPORT ANALYST): Patient has chronic lower back pain related to trauma and recently had imaging at [facility] We will obtain medical records Will start on tylenol 1 gm Q8H PRN for pain Other constipation 09/15/2021 Assessment & Plan (11/23/2021 3:10 PM SQL REPORT ANALYST): Condition stable. Symptoms controlled Continue current treatment with senna and MiraLax Assessment & Plan (09/15/2021 2:51 PM SQL REPORT ANALYST): Chronic constipation patient unable to have bowel [...] 09/15/2021 Assessment & Plan (09/15/2021 2:54 PM SQL REPORT ANALYST): POC UA today did not show any [...] treatment Assessment & Plan (11/23/2021 3:26 PM SQL REPORT ANALYST): Condition stable. Symptoms controlled Continue current treatment with glipizide 5 mg daily Patient has significantly decreased sensation in lower extremities related to diabetes Discussed importance of proper foot care to prevent development of ulcers or infections or fractures with patient Assessment & Plan (2021 5:28 PM SQL REPORT ANALYST): Condition stable. Symptoms controlled Continue current treatment with glipizide Will check HbA1c today Assessment & Plan (09/15/2021 2:52 PM SQL REPORT ANALYST): Condition stable. Symptoms controlled per patient. Continue [...] appointment Assessment & Plan (11/23/2021 3:13 PM SQL REPORT ANALYST): Condition stable. Symptoms controlled Continue current treatment Will place referral for Psychiatry evaluation Assessment & Plan (09/15/2021 2:47 PM SQL REPORT ANALYST): Patient has been off medications since 2019 [...] atorvastatin Assessment & Plan (2021 5:31 PM SQL REPORT ANALYST): Condition stable. Symptoms controlled without medication Will check lipid panel today Assessment & Plan (09/15/2021 3:49 PM SQL REPORT ANALYST): Condition stable. Symptoms controlled Continue to monitor. [...] History Medical History Date Comments Bipolar disorder Cancer (HCC) hx left ovary ca ncer (removed) Anxiety Bulimia nervosa used to have, no t anymore Chronic pain disorder Head injury used to fall lorna n stairs a lot Peripheral neuropathy Panic attack PTSD (post-traumatic stress disorder) Sleep difficulties Substance abuse (HCC) only [employer] Suicide attempt overdoses DM (diabetes mellitus) Hyperlipidemia Depression Hypertension Obesity Schizophrenia 05/03/2022 Memory loss 05/03/2022 Family History Medical [...] drink = 0.6 oz pur e alcohol) [facility] Utilities Answer Date Recorded In the past 12 months has [employer], gas, oil, or water [employer] threatened to shut off services in your [...] often do you attend chur ch or taoist services? Never 11/04/2024 Do you belong to [...] were you homeless or living in a jail (including now)? No 11/04/2024 Personal Safety Answer Date Recorded Have you ever been in or are you currently in a harmful physical or emotional relationship or is someone making you feel afraid or unsafe? Denies 11/01/2024 Comments No Sex and Gender Information Value Date Recorded Sex Assigned at Not on file Legal Sex Female 12:54 AM SQL REPORT ANALYST Gender Identity Not on file Sexual Orientation Not on file Obstetrics History Last Filed Vital Signs Vital Sign Reading Time Taken Comments Blood Pressure 129/79 11/04/2024 12:30 PM SQL REPORT ANALYST Pulse 59 11/04/2024 12:30 PM SQL REPORT ANALYST Temperature 36.4 C (97.6 F) 11/04/2024 12:30 PM SQL REPORT ANALYST Respiratory Rate 18 11/04/2024 12:30 PM SQL REPORT ANALYST Oxygen Saturation 94% 11/04/2024 12:30 PM SQL REPORT ANALYST Inhaled Oxygen Concentration - - Weight 74.4 kg (164 lb 0.4 oz) 11/01/2024 12:40 AM SQL REPORT ANALYST Height 160 cm (5' 3) 11/01/2024 12:40 AM SQL REPORT ANALYST Body Mass Index 29.06 11/01/2024 12:40 AM SQL REPORT ANALYST Plan of Treatment Health Maintenance Due Date [...] history exists Well Visit 65+ 2023 11/23/2021 Hemoglobin A1C 02/04/2025 08/07/2024, 11/30, 05/03/2022, Additional history exists Influenza Vaccine (#1) 2025 2, 07/02/2021, 06/10/2020, Additional history exists Lipid Panel 08/07/2025 08/07/2024, 08/0 11/2021, 12/22/2021, Additional history exists Fall Risk Assessment 11/04/2025 11/04/2024, 05/03/2022, 11/23/2021, Additional history exists eGFR 11/04/2025 11/04/2024, 11/2024, 11/02/2024, Additional history exists Hepatitis C Screening Completed 12/22/2021, 022 Procedures Procedure Name Priority Date/Time Associated Diagnosis Comments EGFR Routine 11/04/2024 1:32 AM SQL REPORT ANALYST HEMOGLOBIN A1C Routine 05/03/2022 11:08 AM CDT [...] CREATININE RATIO, URINE Routine 11/23/2021 3:00 PM SQL REPORT ANALYST Weight loss, unintentional from Last 3 Months or Most Recently Relevant to Health Maintenance Results * (ABNORMAL) eGFR (11/04/2024 1:32 AM SQL REPORT ANALYST) eGFR 54(L) >=60 mL/min/1. 73 m2 Comment: [...] last reviewed 2021. Blood 11/04/2024 1:32 AM SQL REPORT ANALYST 11/04/2024 2:01 AM SQL REPORT ANALYST Becka Napoles NP LAB BLOOD ORDERABLES Final Resul t Performing Organization Address City/[facility] Co de Phone Number [facility] [address] [address] Department [place] [address] * (ABNORMAL) Hemoglobin A1c (05/03/2022 11:08 AM CDT) Hgb A1C 5.9(H) 4.0 - 5.6 % [facility] ([place]) Estimated Average Glucose 123 mg/dL [facility] ([place]) Comment: The ADA recommends reporting an estimated Average Glucose (eAG) with all Hemoglobin A1c results using the equation derived from a study of 507 normal and diabetic adults. Minority populations were underrepresented and children were not included. (Diabetes Care 31:8581-0346, 2008). The eAG is not equivalent to a fasting glucose. Blood 05/03/2022 11:0 8 AM CDT 05/03/2022 12:15 PM CDT Mojgan Cartwright MD LAB BLOOD ORDERABLES Final Resul t Performing Organization Address City/[facility] Co de Phone Number [facility] ([place]) [address] Department [place] [address] * Lipid panel (05/03/2022 11:08 AM CDT) Cholesterol 176 30 - 199 mg/dL [facility] ([place]) Comment: Interpretive Data [...] revised on 2018. Triglycerides 106 <=149 mg/dL [facility] ([place]) Comment: Interpretive Data [...] revised on 2018. HDL 54 >=40 mg/dL [facility] ([place]) Comment: Interpretive Data Ages [...] on 2018. LDL, calculated 101 <=129 mg/dL [facility] ([place]) Comment: Interpretive Data [...] revised on 2018. Non-HDL Cholesterol 122 mg/dL [facility] ([place]) Comment: Interpretive Data Ages < or = [...] last revised on 2018. Chol/HDL ratio 3 PATRICK Ochoa [facility] ([place]) Blood 05/03/2022 11:0 8 AM CDT 05/03/2022 12:15 PM CDT Mojgan Cartwright MD LAB BLOOD ORDERABLES Final Resul t [facility] ([place]) [address] [facility] Department [place] [address] * Hepatitis C antibody (12/22/2021 10:50 AM CDT) Hep C Ab Nonreactive Nonreactive [facility] [place]) Comment: Interpretive Data Nonreactive: Antibodies to HCV [...] last revised on 2019. Testing performed by: [facility], [facility] [facility], [place]., [address] Blood 12/22/2021 10:5 0 AM CDT 12/22/2021 6:30 PM CDT Mojgan Cartwright MD LAB MICROBIOLOGY - GENERAL ORDER JAYSON Final Result [facility] ([place]) [address] Department of Laboratories [place] [address] * Albumin Creatinine Ratio, Urine (11/23/2021 3:00 PM SQL REPORT ANALYST) Albumin Ur 620.0 mg/L [facility] ([place]) Comment: Interpretive Data No reference range established. Current interpretive data was last revised 2019. Creatinine Ur 240.5 mg/dL [facility] ([place]) Comment: Interpretive Data No reference range established. Current interpretive data was last revised 2019. Albumin Creatinine Ratio, Ur See Comment 1 - 29 [facility] ([place]) Comment:Unable to calculate. Urine 11/23/2021 3:00 PM SQL REPORT ANALYST 11/23/2021 4:33 PM SQL REPORT ANALYST Mojgan Cartwright MD LAB URINE ORDERABLES Final Resul t Performing Organization Address [facility] Co de Phone Number [facility] ([place]) [address] Department of Laboratories [place] [address] from Last 3 Months or Most Recently Relevant to Health Maintenance Insurance [place] [employer] [facility] Member Subscriber Plan / Payer (Ef fective 2025-Present) Name:Virginia Clark Relation to Subscriber:Self Name:Virginia Clark Payer ID:[id number] (NAIC) Group ID:Not on file Type:MEDICAID RISK OTHER Address: [address] Advance Directives For more information, please contact: [phone] * Full Code (Latest Code Status on File) Date Activated Date Inactivated Comments 11/01/2024 5:17 AM 11/04/2024 6:04 PM * Full Code Date Activated Date Inactivated Comments 10/21/2018 11:13 AM 10/25/2018 5:44 PM Care Teams Account Development Associate Relationship Specialty Start Date End Date No, Physician PCP - General 02/19/25 Valerie Gastelum DO [address] [facility] [address] [place] [address] Consulting Physician Cardiology 02/20/25
== END 2025-07-01 10:05 | disposition home or self-care (01) ==
LOC: CHSIMG 10:06
PROVIDERS: PCP Family Medicine; Visit Provider Family Medicine
DX: M54.50 Low back pain, unspecified (principal)
CPT/HCPCS: 72100

== ENCOUNTER 2025-07-14 09:42 | Outpatient (RCR) | payer OTHER, SELFPAY ==
--- NOTE | 2025-07-14 11:01 | OPREHPOC ---
Outpatient Therapy Plan of Care This is a Multidisciplinary Plan of Care that may contain components documented by all disciplines (PT, OT, and ST.) PT Problem 1 PT Problem #1 Knowledge Deficit PT Goal 1 Goal / Goal Update Independent and compliant with HEP. Target Visit 2 PT Problem 2 PT Problem #2 Impaired Flexibility PT Goal 1 Goal / Goal Update Pt to improve L hamstring flexibility to -30. Pt to improve L piriformis to mild restriction. Target Visit 12 PT Problem 3 PT Problem #3 Impaired Strength PT Goal 1 Goal / Goal Update Pt to improve bilat hip and knee strength to 5/5 without pain. Target Visit 12 PT Problem 4 PT Problem #4 Impaired Functional Mobility PT Goal 1 Goal / Goal Update Pt to report 20% reduction in perceived disability on Oswestry. Pt to be able to stand and sit for more than 1 hour without increased low back pain. Target Visit 12
--- NOTE | 2025-07-14 11:01 | PTOPEVAL1 ---
Assessment and note entered by Carolina Springer, PT Evaluation Information Assessment Status Evaluation ICD-10 Condition Codes (PT) Pain in low back M54.50,Radiculopathy, lumbar region M54.16 Onset 07/07/2025 Subjective Information Pt reports she has had back pain for years and it flared up last week. She reports her pain is aching in nature and is 8/10 currently. She states the pain worsens when she walks and that her legs also go numb, and she does report falls from this . She also notes pain with prolonged sitting/ standing and with bending over. She has to use the electric carts at the grocery store. Reported Pain Level Pain Score 8: Self Report Assessment PT Clinical Summary Mrs. Clark is a 64 yo female presenting to skilled physical therapy evaluation for low back pain. She demonstrates bilat hip and knee weakness as well as reproduction of pain with forward flexion and left lateral flexion. She demonstrates significant impairment in L piriformis and hamstring flexibility as well as anterior pelvic tilt in standing. She will benefit from skilled PT intervention to address these deficits to reduce her pain and improve her ability to bend, lift, sit and stand for prolonged periods during functional tasks. Plan of Care Interventions Electrical Stimulation,Gait Training,Hot Pack/Cold Pack,Manual Therapy,Neuro Re-education,Patient/ Caregiver Education,Therapeutic Activities, Therapeutic Exercise,Self-Care/Home Management PT Services Indicated Yes Treatment Frequency and 2x/week for 12 visits Duration These treatments will address the objective and functional deficits as defined above. The patient will be advanced safely and appropriately in order for the patient to progress towards his/her prior level of function. Additional exercises will be introduced and as well as a comprehensive home exercise program upon discharge, if needed, ?to ensure carryover of functional gains achieved in the clinic. This treatment plan has been reviewed and agreement upon by the patient.
--- NOTE | 2025-08-14 11:48 | OPREHPOC ---
Outpatient Therapy Plan of Care This is a Multidisciplinary Plan of Care that may contain components documented by all disciplines (PT, OT, and ST.) PT Problem 1 PT Problem #1 Knowledge Deficit PT Goal 1 Goal / Goal Update Independent and compliant with HEP. Target Visit 2 Progress Met PT Problem 2 PT Problem #2 Impaired Flexibility PT Goal 1 Goal / Goal Update Pt to improve L hamstring flexibility to -30. Pt to improve L piriformis to mild restriction. Target Visit 12 Progress Not Met PT Problem 3 PT Problem #3 Impaired Strength PT Goal 1 Goal / Goal Update Pt to improve bilat hip and knee strength to 5/5 without pain. Target Visit 12 Progress Not Met PT Problem 4 PT Problem #4 Impaired Functional Mobility PT Goal 1 Goal / Goal Update Pt to report 20% reduction in perceived disability on Oswestry. -met Pt to be able to stand and sit for more than 1 hour without increased low back pain. -some progress Target Visit 12 Progress Partially Met
--- NOTE | 2025-08-14 11:48 | PTOPPROG ---
Assessment and note entered by Carolina Springer, PT Evaluation Information Assessment Status Progress ICD-10 Condition Codes (PT) Pain in low back M54.50,Radiculopathy, lumbar region M54.16 Onset 07/07/2025 Subjective Information Pt reports she's feeling good today and she's been betting better with PT. She denies pain at start of session but states that activity typically makes her back hurt afterward. She has been doing her HEP with assistance from someone she lives with. She denies numbness and tingling but states she does still get [employer]na horses. She states she can stand for around 20 minutes before needing to sit due to pain. Assessment PT Clinical Summary Mrs. Clark has attended 10 skilled PT visits for low back pain with radicular symptoms. Since beginning PT she has experienced improvement in her pain and no longer has numbness and tingling down her leg. She still demonstrates hip weakness and difficulty with standing for prolonged periods of time. She will benefit from continued skilled PT intervention per original POC to make further progress toward goals addressing strength and functional mobility. Plan of Care Interventions Electrical Stimulation,Gait Training,Hot Pack/Cold Pack,Manual Therapy,Neuro Re-education,Patient/ Caregiver Education,Therapeutic Activities, Therapeutic Exercise,Self-Care/Home Management PT Services Indicated Yes Treatment Frequency and Continue per original POC Duration These treatments will address the objective and functional deficits as defined above. The patient will be advanced safely and appropriately in order for the patient to progress towards his/her prior level of function. Additional exercises will be introduced and as well as a comprehensive home exercise program upon discharge, if needed, ?to ensure carryover of functional gains achieved in the clinic. This treatment plan has been reviewed and agreement upon by the patient.
--- NOTE | 2025-08-21 12:06 | OPREHPOC ---
Outpatient Therapy Plan of Care This is a Multidisciplinary Plan of Care that may contain components documented by all disciplines (PT, OT, and ST.) PT Problem 1 PT Problem #1 Knowledge Deficit PT Goal 1 Goal / Goal Update Independent and compliant with HEP. Target Visit 2 Progress Met PT Problem 2 PT Problem #2 Impaired Flexibility PT Goal 1 Goal / Goal Update Pt to improve L hamstring flexibility to -30. -met Pt to improve L piriformis to mild restriction. - not met Target Visit 12 Progress Partially Met PT Problem 3 PT Problem #3 Impaired Strength PT Goal 1 Goal / Goal Update Pt to improve bilat hip and knee strength to 5/5 without pain. Target Visit 12 Progress Not Met PT Problem 4 PT Problem #4 Impaired Functional Mobility PT Goal 1 Goal / Goal Update Pt to report 20% reduction in perceived disability on Oswestry. -met Pt to be able to stand and sit for more than 1 hour without increased low back pain. -some progress Target Visit 12 Progress Partially Met
--- NOTE | 2025-08-21 12:06 | PTOPPROG ---
Assessment and note entered by Carolina Springer, PT Evaluation Information Assessment Status Progress ICD-10 Condition Codes (PT) Pain in low back M54.50,Radiculopathy, lumbar region M54.16 Onset 07/07/2025 Subjective Information Amanda reports feeling like PT has been helping. She has continued to do her HEP and states her pain isn't as bad as it was before she started PT. Her pain is minimal to none at rest but can still increase to severe levels with prolonged standing and activity. She notes reduction in her pain overall and states it's mainly just in her back and buttock region rather than down her legs. Assessment PT Clinical Summary Mrs. Clark has attended 12 skilled PT visits addressing lower back pain with radiculopathy. Since beginning PT she has made progress toward goals addressing standing endurance, flexibility and Oswestry score but she still demonstrates hip and core mm weakness affecting her ability fully meet these goals. She will benefit from continued skilled PT intervention to make further progress toward goals addressing strength, flexibility, and functional mobility to allow pt to participate in daily activities with less pain. Plan of Care Interventions Electrical Stimulation,Gait Training,Hot Pack/Cold Pack,Manual Therapy,Neuro Re-education,Patient/ Caregiver Education,Therapeutic Activities, Therapeutic Exercise,Self-Care/Home Management PT Services Indicated Yes Treatment Frequency and 2x/week for 4 additional visits Duration These treatments will address the objective and functional deficits as defined above. The patient will be advanced safely and appropriately in order for the patient to progress towards his/her prior level of function. Additional exercises will be introduced and as well as a comprehensive home exercise program upon discharge, if needed, ?to ensure carryover of functional gains achieved in the clinic. This treatment plan has been reviewed and agreement upon by the patient.
--- NOTE | 2025-09-11 10:56 | OPREHPOC ---
Outpatient Therapy Plan of Care This is a Multidisciplinary Plan of Care that may contain components documented by all disciplines (PT, OT, and ST.) PT Problem 1 PT Problem #1 Knowledge Deficit PT Goal 1 Goal / Goal Update Independent and compliant with HEP. Target Visit 2 Progress Met PT Problem 2 PT Problem #2 Impaired Flexibility PT Goal 1 Goal / Goal Update Pt to improve L hamstring flexibility to -30. -met Pt to improve L piriformis to mild restriction. - met Target Visit 12 Progress Met PT Problem 3 PT Problem #3 Impaired Strength PT Goal 1 Goal / Goal Update Pt to improve bilat hip and knee strength to 5/5 without pain. -met for knee strength Target Visit 12 Progress Partially Met PT Problem 4 PT Problem #4 Impaired Functional Mobility PT Goal 1 Goal / Goal Update Pt to report 20% reduction in perceived disability on Oswestry. -met Pt to be able to stand and sit for more than 1 hour without increased low back pain. -some progress Target Visit 12 Progress Partially Met
--- NOTE | 2025-09-11 10:56 | PTOPDC ---
Assessment and note entered by Carolina Springer, PT Evaluation Information Assessment Status Discharge ICD-10 Condition Codes (PT) Pain in low back M54.50,Radiculopathy, lumbar region M54.16 Onset 07/07/2025 Subjective Information Amanda reports feeling good today and her back pain isn't severe. She has continued to do her exercises at home and feels good enough to discharge today. She states her primary doctor says she has an aneurysm and she will be going to get scans done and states she'll have to go to [place] to see a specialist. Reported Pain Level Pain Score 1: Self Report Assessment PT Clinical Summary Mrs. Clark has attended 15 skilled PT visits addressing low back pain. Since beginning PT she has experienced a significant reduction in her pain and is independent with her home exercise plan. She has met or partially met all therapeutic goals addressing mm flexibility, strength, and functional mobility and participation in social activities. She will be discharged from PT this date due to good progress made with edu to continue HEP to maintain her progress. Plan of Care PT Services Indicated No
== END 2025-09-11 20:00 | disposition home or self-care (01) ==
LOC: CHSPT 09:42
PROVIDERS: PCP Family Medicine; Visit Provider Family Medicine
DX: M54.50 Low back pain, unspecified (principal); M54.16 Radiculopathy, lumbar region
CPT/HCPCS: 97014; 97110; 97112; 97150; 97161; 97530; G0283

== ENCOUNTER 2025-07-21 15:24 | Outpatient (CLI) | payer OTHER, SELFPAY ==
--- NOTE | ~2025-07-21 | XR_ITS ---
EXAMINATION: XR abdomen/kub 1V, 07/21/2025 15:30 CDT HISTORY: CONSTIPATION COMPARISON: No comparisons available. Technique: 3 view. Findings: Moderate fecal content, no dilated bowel loops No free air. No abnormal calcifications No acute osseous abnormality. Impression: 1. No acute abnormality. Reviewed, dictated and finalized at location P. Impression: 1. No acute abnormality.
--- OUTSIDE RECORDS SUMMARY | 2025-07-21 18:06 | XMS_ITS | Clinical Summary ---
Author Organization [facility] [address] [facility] Address [address] [place] [address] Care Team Providers Care Finishing Range Feeder Name Role Phone Valerie Gastelum DO Unavailable No, Physician Primary Care Provider [phone] Allergies Active Allergy Reactions Criticality Noted Date [...] 11/23/2021 Assessment & Plan (11/23/2021 3:22 PM OBIEE LEAD DEVELOPER): Patient recently had fit testing for stool which was normal Will get CT chest for lung cancer screening, mammogram previously ordered, patient advised to get this done as soon as possible Will also place referral for GI evaluation Screening for lung cancer 11/23/2021 Urinary frequency 11/23/2021 Assessment & Plan (11/23/2021 3:23 PM OBIEE LEAD DEVELOPER): Will check UA with reflex to microscopy and culture If evidence of UTI will treat as needed Screening for thyroid disorder 11/23/2021 Assessment & Plan (11/23/2021 3:29 PM OBIEE LEAD DEVELOPER): Will get routine lab testing today Discussed importance of getting proper vaccinations with patient including COVID vaccination. Patient will think about it Advised to see Gynecology for Pap smear Fit testing negative Will get screening CT scan for lung cancer Ophthalmology referral placed for a dilated eye exam Cough 2021 Assessment & Plan (2021 5:33 PM OBIEE LEAD DEVELOPER): Patient has chronic cough with strong history [...] losartan Assessment & Plan (11/23/2021 3:11 PM OBIEE LEAD DEVELOPER): Patient pressure high initially on presentation. Improved after patient stayed in room for bit Advised to make blood pressure log at home, may need to adjust medications depending on results Assessment & Plan (2021 5:34 PM OBIEE LEAD DEVELOPER): Patient has chronic hypertension controlled with losartan [...] 09/15/2021 Assessment & Plan (11/23/2021 3:24 PM OBIEE LEAD DEVELOPER): Records from [place] reviewed patient has MRI thoracic spine with that degenerative joint disease Patient was following with Orthopedics there but would wish to establish care with someone over here Will place referral for Orthopedics over here Assessment & Plan (2021 5:30 PM OBIEE LEAD DEVELOPER): Records sent over from [place] clinic reviewed patient has back x-rays which show mild degenerative disease however no MRI present. Discussed with patient she says she definitely had an MRI recently Will obtain records of MRI Will continue Tylenol 1 g q.8 hours p.r.n. for pain Patient advised to continue ice packs as she feels these help her pain Assessment & Plan (09/15/2021 2:52 PM OBIEE LEAD DEVELOPER): Patient has chronic lower back pain related to trauma and recently had imaging at [facility] We will obtain medical records Will start on tylenol 1 gm Q8H PRN for pain Other constipation 09/15/2021 Assessment & Plan (11/23/2021 3:10 PM OBIEE LEAD DEVELOPER): Condition stable. Symptoms controlled Continue current treatment with senna and MiraLax Assessment & Plan (09/15/2021 2:51 PM OBIEE LEAD DEVELOPER): Chronic constipation patient unable to have bowel [...] 09/15/2021 Assessment & Plan (09/15/2021 2:54 PM OBIEE LEAD DEVELOPER): POC UA today did not show any [...] treatment Assessment & Plan (11/23/2021 3:26 PM OBIEE LEAD DEVELOPER): Condition stable. Symptoms controlled Continue current treatment with glipizide 5 mg daily Patient has significantly decreased sensation in lower extremities related to diabetes Discussed importance of proper foot care to prevent development of ulcers or infections or fractures with patient Assessment & Plan (2021 5:28 PM OBIEE LEAD DEVELOPER): Condition stable. Symptoms controlled Continue current treatment with glipizide Will check HbA1c today Assessment & Plan (09/15/2021 2:52 PM OBIEE LEAD DEVELOPER): Condition stable. Symptoms controlled per patient. Continue [...] appointment Assessment & Plan (11/23/2021 3:13 PM OBIEE LEAD DEVELOPER): Condition stable. Symptoms controlled Continue current treatment Will place referral for Psychiatry evaluation Assessment & Plan (09/15/2021 2:47 PM OBIEE LEAD DEVELOPER): Patient has been off medications since 2019 [...] atorvastatin Assessment & Plan (2021 5:31 PM OBIEE LEAD DEVELOPER): Condition stable. Symptoms controlled without medication Will check lipid panel today Assessment & Plan (09/15/2021 3:49 PM OBIEE LEAD DEVELOPER): Condition stable. Symptoms controlled Continue to monitor. [...] drink = 0.6 oz pur e alcohol) [facility] Utilities Answer Date Recorded In the past 12 months has [employer], gas, oil, or water [employer] threatened to shut off services in your [...] often do you attend chur ch or confucianism services? Never 11/04/2024 Do you belong to any clubs o r organizations such as baptism groups, unions, fraternal or athletic groups, or [...] any time in the past 12 m [facility], were you homeless or living in a group home (including now)? No 11/04/2024 Personal Safety Answer Date Recorded Have you ever been in or are you currently in a harmful physical or emotional relationship or is someone making you feel afraid or unsafe? Denies 11/01/2024 Comments No Sex and Gender Information Value Date Recorded Sex Assigned at Not on file Legal Sex Female 12:54 AM OBIEE LEAD DEVELOPER Gender Identity Not on file Sexual Orientation Not on file Obstetrics History Last Filed Vital Signs Vital Sign Reading Time Taken Comments Blood Pressure 129/79 11/04/2024 12:30 PM OBIEE LEAD DEVELOPER Pulse 59 11/04/2024 12:30 PM OBIEE LEAD DEVELOPER Temperature 36.4 C (97.6 F) 11/04/2024 12:30 PM OBIEE LEAD DEVELOPER Respiratory Rate 18 11/04/2024 12:30 PM OBIEE LEAD DEVELOPER Oxygen Saturation 94% 11/04/2024 12:30 PM OBIEE LEAD DEVELOPER Inhaled Oxygen Concentration - - Weight 74.4 kg (164 lb 0.4 oz) 11/01/2024 12:40 AM OBIEE LEAD DEVELOPER Height 160 cm (5' 3) 11/01/2024 12:40 AM OBIEE LEAD DEVELOPER Body Mass Index 29.06 11/01/2024 12:40 AM OBIEE LEAD DEVELOPER Plan of Treatment Health Maintenance Due Date [...] Diagnosis Comments EGFR Routine 11/04/2024 1:32 AM OBIEE LEAD DEVELOPER HEMOGLOBIN A1C Routine 05/03/2022 11:08 AM CDT [...] CREATININE RATIO, URINE Routine 11/23/2021 3:00 PM OBIEE LEAD DEVELOPER Weight loss, unintentional from Last 3 Months or Most Recently Relevant to Health Maintenance Results * (ABNORMAL) eGFR (11/04/2024 1:32 AM OBIEE LEAD DEVELOPER) eGFR 54(L) >=60 mL/min/1. 73 m2 Comment: [...] last reviewed 2021. Blood 11/04/2024 1:32 AM OBIEE LEAD DEVELOPER 11/04/2024 2:01 AM OBIEE LEAD DEVELOPER Becka Napoles NP LAB BLOOD ORDERABLES Final Resul t Performing Organization Address City/[facility] Co de Phone Number [facility] [address] Department [place] [address] * (ABNORMAL) Hemoglobin A1c (05/03/2022 11:08 AM CDT) Hgb A1C 5.9(H) 4.0 - 5.6 % [facility] ([place]) Estimated Average Glucose 123 mg/dL [facility] Comment: The ADA recommends reporting an estimated Average Glucose (eAG) with all Hemoglobin A1c results using the equation derived from a study of 507 normal and diabetic adults. Minority populations were underrepresented and children were not included. (Diabetes Care 31:9670-4049, 2008). The eAG is not equivalent to a fasting glucose. Blood 05/03/2022 11:0 8 AM CDT 05/03/2022 12:15 PM CDT Mojgan Cartwright MD LAB BLOOD ORDERABLES Final Resul t Performing Organization Address City/[facility] Co de Phone Number [facility] ([place]) [address] Department [place] [address] * Lipid panel (05/03/2022 11:08 AM CDT) Cholesterol 176 30 - 199 mg/dL [facility] ([place] Comment: Interpretive Data Ages < [...] revised on 2018. Triglycerides 106 <=149 mg/dL [facility] ([place]) Comment: Interpretive Data Ages < [...] revised on 2018. HDL 54 >=40 mg/dL [facility] ([place]) Comment: Interpretive Data Ages < [...] on 2018. LDL, calculated 101 <=129 mg/dL [facility] ([place]) Comment: Interpretive Data Ages < [...] revised on 2018. Non-HDL Cholesterol 122 mg/dL [facility] ([place]) Comment: Interpretive Data Ages < or [...] on 2018. Chol/HDL ratio 3 PATRICK Ochoa [facility] ([place]) Blood 05/03/2022 11:0 8 AM CDT 05/03/2022 12:15 PM CDT Mojgan Cartwright MD LAB BLOOD ORDERABLES Final Resul t [facility] ([place]) [address] [facility] Department [place] [address] * Hepatitis C antibody (12/22/2021 10:50 AM CDT) Hep C Ab Nonreactive Nonreactive [facility] [place]) Comment: Interpretive Data Nonreactive: Antibodies to [...] last revised on 2019. Testing performed by: [facility], [facility] [facility], [place]., [address] Blood 12/22/2021 10:5 0 AM CDT 12/22/2021 6:30 PM CDT Mojgan Cartwright MD LAB MICROBIOLOGY - GENERAL ORDER JAYSON Final Result [facility] ([place]) [address] Department of Laboratories [place] [address] * Albumin Creatinine Ratio, Urine (11/23/2021 3:00 PM OBIEE LEAD DEVELOPER) Albumin Ur 620.0 mg/L [facility] ([place]) Comment: Interpretive Data No reference range established. Current interpretive data was last revised 2019. Creatinine Ur 240.5 mg/dL [facility] ([place] Comment: Interpretive Data No reference range established. Current interpretive data was last revised 2019. Albumin Creatinine Ratio, Ur See Comment 1 - 29 [facility] ([place]) Comment:Unable to calculate. Urine 11/23/2021 3:00 PM OBIEE LEAD DEVELOPER 11/23/2021 4:33 PM OBIEE LEAD DEVELOPER Mojgan Cartwright MD LAB URINE ORDERABLES Final Resul t Performing Organization Address [facility] Co de Phone Number [facility] [address] Department of Laboratories [place] [address] from Last 3 Months or Most Recently Relevant to Health Maintenance Insurance [facility] Member Subscriber Plan / Payer (Ef fective 2025-Present) Name:Virginia Clark Relation to Subscriber:Self Name:Virginia Clark Payer ID:[id number] (NAIC) Group ID:Not on file Type:MEDICAID RISK OTHER Address: [address] Advance Directives For more information, please contact: [phone] * Full Code (Latest Code Status on File) Date Activated Date Inactivated Comments 11/01/2024 5:17 AM 11/04/2024 6:04 PM * Full Code Date Activated Date Inactivated Comments 10/21/2018 11:13 AM 10/25/2018 5:44 PM Care Teams Finishing Range Feeder Relationship Specialty Start Date End Date No, Physician PCP - General 02/19/25 Valerie Gastelum DO [address] [facility] [address] [place] [address] Consulting Physician Cardiology 02/20/25
--- OUTSIDE RECORDS SUMMARY | 2025-07-21 18:06 | XMS_ITS | Encounter Summary ---
Author Organization [facility] Healthcare Address [address] [place] [address] Care Team Providers Care Fixture Builder Name Role Phone Valerie Gastelum DO Unavailable [phone] No, Physician Primary Care Provider [phone] Encounter Details Date Type Department Care Team (Late st Contact Info) Description 02/27/2025 Orders Only [facility] Information Management [address] [place] [address] Scanning, Provider Social History Tobacco Use Types Packs/Day Years Used Date Smoking Tobacco: Former Cigarettes 1 51 Smokeless Tobacco: Never Comments:51 pack /2022-fa ther history lung cancer Alcohol Use Standard Drinks/Week Comments No 0 (1 standard drink = 0.6 oz pur e alcohol) [facility] Utilities Answer Date Recorded In the past 12 months has [employer] electric, gas, oil, or water company threatened [...] any clubs o r organizations such as yazidi groups, unions, fraternal or athletic groups, or [...] any time in the past 12 m [facility], were you homeless or living in a fdc (including now)? No 11/04/2024 Personal Safety Answer Date Recorded Have you ever been in or are you currently in a harmful physical or emotional relationship or is someone making you feel afraid or unsafe? Denies 11/01/2024 Comments No Sex and Gender Information Value Date Recorded Sex Assigned at Not on file Legal Sex Female 12:54 AM AUTOMOTIVE ACCESSORY INSTALLER Gender Identity Not on file Sexual Orientation [...] on filedocumented in this encounter Care Teams Fixture Builder Relationship Specialty Start Date End Date No, Physician PCP - General 02/19/25 Valerie Gastelum DO [facility] [address] [facility] [address] [place] [address] Consulting Physician Cardiology 02/20/25 documented as of this encounter
== END 2025-07-21 15:25 | disposition home or self-care (01) ==
LOC: CHSIMG 15:25
PROVIDERS: PCP Family Medicine; Visit Provider Nurse Practitioner Family
DX: K59.00 Constipation, unspecified (principal)
CPT/HCPCS: 74018

== ENCOUNTER 2025-08-25 12:09 | Outpatient (CLI) | payer OTHER, SELFPAY ==
--- NOTE | ~2025-08-25 | US_ITS ---
EXAMINATION: US soft tissue chest DATE: 08/25/2025 14:02 INDICATION: History of pain and Doppler abnormality at the right basilar neck/supraclavicular region. TECHNIQUE: Multiple grayscale and Doppler ultrasound images of the right supraclavicular region of concern were obtained. COMPARISON: None FINDINGS: There is a striated pattern of linear echogenicity suggesting a foreign material within a poorly defined 1-2 cm anechoic/very hypoechoic lesion at the region of concern. Arterial flow is seen within the lesion which appears contiguous with the underlying right subclavian artery. IMPRESSION: 1. Arterial flow within a poorly defined 1-2 cm lesion arising along the right subclavian artery with some associated foreign material. Differential would include a stented pseudoaneurysm or origin of a bypass graft. Visualization of this region by ultrasound is significantly limited by the adjacent clavicle. Correlate with clinical/surgical history and consider further evaluation with contrast-enhanced CT to better delineate the anatomy. Reviewed, dictated and finalized at location [facility]. [facility] IMPRESSION: 1. Arterial flow within a poorly defined 1-2 cm lesion arising along the right subclavian artery with some associated foreign material. Differential would inc lude a stented pseudoaneurysm or origin of a bypass graft. Visualization of thi s region by ultrasound is significantly limited by the adjacent clavicle. Corre late with clinical/surgical history and consider further evaluation with contra st-enhanced CT to better delineate the anatomy.
--- OUTSIDE RECORDS SUMMARY | 2025-08-25 14:07 | XMS_ITS | Encounter Summary ---
Author Organization [facility] Healthcare Address [address] [place] [address] Care Team Providers Care Button Breaker Operator Name Role Phone Valerie Gastelum DO Unavailable [phone] No, Physician Primary Care Provider [phone] Encounter Details Date Type Department Care Team (Late st Contact Info) Description 02/27/2025 Orders Only [facility] [place] Information Management [address] [place] [address] Scanning, Provider Social History Tobacco Use Types Packs/Day Years Used Date Smoking Tobacco: Former Cigarettes 1 51 Smokeless Tobacco: Never Comments:51 pack /2022-fa ther history lung cancer Alcohol Use Standard Drinks/Week Comments No 0 (1 standard drink = 0.6 oz pur e alcohol) [facility] Utilities Answer Date Recorded In the past 12 months has [employer] electric, gas, oil, or water company threatened [...] often do you attend chur ch or buddhist services? Never 11/04/2024 Do you belong to [...] any time in the past 12 m [facility], were you homeless or living in [...] on file Legal Sex Female 12:54 AM MANAGER CONSUMER Gender Identity Not on file Sexual Orientation [...] on filedocumented in this encounter Care Teams Button Breaker Operator Relationship Specialty Start Date End Date No, Physician PCP - General 02/19/25 Valerie Gastelum DO [facility] [address] [facility] [address] [place] [address] Consulting Physician Cardiology 02/20/25 documented as of this encounter
--- OUTSIDE RECORDS SUMMARY | 2025-08-25 14:07 | XMS_ITS | Clinical Summary ---
Author Organization [facility] [address] Address [address] [place] [place] [address] Care Team Providers Care Credit Card Analyst Name Role Phone Valerie Gastelum DO Unavailable No, Physician Primary Care Provider [phone] Allergies Active Allergy Reactions Criticality Noted Date [...] 11/23/2021 Assessment & Plan (11/23/2021 3:22 PM COMPENSATION ASSOCIATE): Patient recently had fit testing for stool which was normal Will get CT chest for lung cancer screening, mammogram previously ordered, patient advised to get this done as soon as possible Will also place referral for GI evaluation Screening for lung cancer 11/23/2021 Urinary frequency 11/23/2021 Assessment & Plan (11/23/2021 3:23 PM COMPENSATION ASSOCIATE): Will check UA with reflex to microscopy and culture If evidence of UTI will treat as needed Screening for thyroid disorder 11/23/2021 Assessment & Plan (11/23/2021 3:29 PM COMPENSATION ASSOCIATE): Will get routine lab testing today Discussed importance of getting proper vaccinations with patient including COVID vaccination. Patient will think about it Advised to see Gynecology for Pap smear Fit testing negative Will get screening CT scan for lung cancer Ophthalmology referral placed for a dilated eye exam Cough 2021 Assessment & Plan (2021 5:33 PM COMPENSATION ASSOCIATE): Patient has chronic cough with strong history [...] losartan Assessment & Plan (11/23/2021 3:11 PM COMPENSATION ASSOCIATE): Patient pressure high initially on presentation. Improved after patient stayed in room for bit Advised to make blood pressure log at home, may need to adjust medications depending on results Assessment & Plan (2021 5:34 PM COMPENSATION ASSOCIATE): Patient has chronic hypertension controlled with losartan [...] 09/15/2021 Assessment & Plan (11/23/2021 3:24 PM COMPENSATION ASSOCIATE): Records from [place] reviewed patient has MRI thoracic spine with that degenerative joint disease Patient was following with Orthopedics there but would wish to establish care with someone over here Will place referral for Orthopedics over here Assessment & Plan (2021 5:30 PM COMPENSATION ASSOCIATE): Records sent over from [place] clinic reviewed patient has back x-rays which show mild degenerative disease however no MRI present. Discussed with patient she says she definitely had an MRI recently Will obtain records of MRI Will continue Tylenol 1 g q.8 hours p.r.n. for pain Patient advised to continue ice packs as she feels these help her pain Assessment & Plan (09/15/2021 2:52 PM COMPENSATION ASSOCIATE): Patient has chronic lower back pain related to trauma and recently had imaging at [facility] We will obtain medical records Will start on tylenol 1 gm Q8H PRN for pain Other constipation 09/15/2021 Assessment & Plan (11/23/2021 3:10 PM COMPENSATION ASSOCIATE): Condition stable. Symptoms controlled Continue current treatment with senna and MiraLax Assessment & Plan (09/15/2021 2:51 PM COMPENSATION ASSOCIATE): Chronic constipation patient unable to have bowel [...] 09/15/2021 Assessment & Plan (09/15/2021 2:54 PM COMPENSATION ASSOCIATE): POC UA today did not show any [...] treatment Assessment & Plan (11/23/2021 3:26 PM COMPENSATION ASSOCIATE): Condition stable. Symptoms controlled Continue current treatment with glipizide 5 mg daily Patient has significantly decreased sensation in lower extremities related to diabetes Discussed importance of proper foot care to prevent development of ulcers or infections or fractures with patient Assessment & Plan (2021 5:28 PM COMPENSATION ASSOCIATE): Condition stable. Symptoms controlled Continue current treatment with glipizide Will check HbA1c today Assessment & Plan (09/15/2021 2:52 PM COMPENSATION ASSOCIATE): Condition stable. Symptoms controlled per patient. Continue [...] appointment Assessment & Plan (11/23/2021 3:13 PM COMPENSATION ASSOCIATE): Condition stable. Symptoms controlled Continue current treatment Will place referral for Psychiatry evaluation Assessment & Plan (09/15/2021 2:47 PM COMPENSATION ASSOCIATE): Patient has been off medications since 2019 [...] atorvastatin Assessment & Plan (2021 5:31 PM COMPENSATION ASSOCIATE): Condition stable. Symptoms controlled without medication Will check lipid panel today Assessment & Plan (09/15/2021 3:49 PM COMPENSATION ASSOCIATE): Condition stable. Symptoms controlled Continue to monitor. [...] drink = 0.6 oz pur e alcohol) [facility] Utilities Answer Date Recorded In the past 12 months has [employer], gas, oil, or water [employer] threatened to shut off services in your [...] often do you attend chur ch or spiritism services? Never 11/04/2024 Do you belong to any clubs o r organizations such as synagogue groups, unions, fraternal or athletic groups, or [...] any time in the past [address] [facility], were you homeless or living in a mcc (including now)? No 11/04/2024 Personal Safety Answer Date Recorded Have you ever been in or are you currently in a harmful physical or emotional relationship or is someone making you feel afraid or unsafe? Denies 11/01/2024 Comments No Sex and Gender Information Value Date Recorded Sex Assigned at Not on file Legal Sex Female 12:54 AM COMPENSATION ASSOCIATE Gender Identity Not on file Sexual Orientation Not on file Last Filed Vital Signs Vital Sign Reading Time Taken Comments Blood Pressure 129/79 11/04/2024 12:30 PM COMPENSATION ASSOCIATE Pulse 59 11/04/2024 12:30 PM COMPENSATION ASSOCIATE Temperature 36.4 C (97.6 F) 11/04/2024 12:30 PM COMPENSATION ASSOCIATE Respiratory Rate 18 11/04/2024 12:30 PM COMPENSATION ASSOCIATE Oxygen Saturation 94% 11/04/2024 12:30 PM COMPENSATION ASSOCIATE Inhaled Oxygen Concentration - - Weight 74.4 kg (164 lb 0.4 oz) 11/01/2024 12:40 AM COMPENSATION ASSOCIATE Height 160 cm (5' 3) 11/01/2024 12:40 AM COMPENSATION ASSOCIATE Body Mass Index 29.06 11/01/2024 12:40 AM COMPENSATION ASSOCIATE Plan of Treatment Health Maintenance Due Date Last Done Comments Colon Cancer Screening-Colonoscopy 1960 Osteoporosis Screening-Bone Density Scan 1960 Dilated Eye Exam 1958 DTaP/Tdap/Td Vaccine (1 - Tdap) 1969 Hepatitis B Screening 1976 Zoster Vaccine (1 of 2) 2008 Pneumococcal vaccine 65+ (2 of 2 - PCV) 09/20/2013 09/20/2012 Breast Cancer Screening-Mammogram 08/06/2015 014 Albumin Creatinine Ratio, Urine 11/23/2022 Foot Exam 11/23/2022 11/23/2021 Depression Screening 05/03/2023 05/03/2022, 11/23/2021, 2021, Additional history exists Well Visit 65+ 2023 11/23/2021 Hemoglobin A1C 02/04/2025 08/07/2024, 0312/2023, 05/03/2022, Additional history exists Influenza Vaccine (#1) 2025 2, 07/02/2021, 06/10/2020, Additional history exists Lipid Panel 08/07/2025 08/07/2024, 08/0 11/2021, 12/22/2021, Additional history exists Fall Risk Assessment 11/04/2025 11/04/2024, 05/03/2022, 11/23/2021, Additional history exists eGFR 11/04/2025 11/04/2024, 11/2024, 11/02/2024, Additional history exists Hepatitis C Screening Completed 12/22/2021, 022 Procedures Procedure Name Priority Date/Time Associated Diagnosis Comments EGFR Routine 11/04/2024 1:32 AM COMPENSATION ASSOCIATE HEMOGLOBIN A1C Routine 05/03/2022 11:08 AM CDT [...] CREATININE RATIO, URINE Routine 11/23/2021 3:00 PM COMPENSATION ASSOCIATE Weight loss, unintentional from Last 3 Months or Most Recently Relevant to Health Maintenance Results * (ABNORMAL) eGFR (11/04/2024 1:32 AM COMPENSATION ASSOCIATE) eGFR 54(L) >=60 mL/min/1. 73 m2 Comment: [...] last reviewed 2021. Blood 11/04/2024 1:32 AM COMPENSATION ASSOCIATE 11/04/2024 2:01 AM COMPENSATION ASSOCIATE Becka Napoles NP LAB BLOOD ORDERABLES Final Resul t Performing Organization Address City/[facility] Co de Phone Number [phone] [address] Department [place] [address] * (ABNORMAL) Hemoglobin A1c (05/03/2022 11:08 AM CDT) Hgb A1C 5.9(H) 4.0 - 5.6 % [facility] ([place]) Estimated Average Glucose 123 mg/dL [facility] ([place]) Comment: The ADA recommends reporting an estimated Average Glucose (eAG) with all Hemoglobin A1c results using the equation derived from a study of 507 normal and diabetic adults. Minority populations were underrepresented and children were not included. (Diabetes Care 31:1182-9525, 2008). The eAG is not equivalent to a fasting glucose. Blood 05/03/2022 11:0 8 AM CDT 05/03/2022 12:15 PM CDT Mojgan Cartwright MD LAB BLOOD ORDERABLES Final Resul t Performing Organization Address City/[facility] Co de Phone Number [facility] ([place]) [address] [place] [address] * Lipid panel (05/03/2022 11:08 AM CDT) Cholesterol 176 30 - 199 mg/dL [facility] ([place]) Comment: Interpretive Data Ages < [...] revised on 2018. Triglycerides 106 <=149 mg/dL [facility] ([place]) Comment: Interpretive Data Ages < [...] revised on 2018. HDL 54 >=40 mg/dL [facility] ([place]) Comment: Interpretive Data Ages [...] on 2018. LDL, calculated 101 <=129 mg/dL [facility] ([place]) Comment: Interpretive Data Ages < [...] revised on 2018. Non-HDL Cholesterol 122 mg/dL [facility] ([place]) Comment: Interpretive Data Ages < [...] on 2018. Chol/HDL ratio 3 PATRICK Ochoa [facility] ([place]) Blood 05/03/2022 11:0 8 AM CDT 05/03/2022 12:15 PM CDT Mojgan Cartwright MD LAB BLOOD ORDERABLES Final Resul t [facility] ([place]) [address] [facility] Department [place] [address] * Hepatitis C antibody (12/22/2021 10:50 AM CDT) Hep C Ab Nonreactive Nonreactive [facility] [place]) Comment: Interpretive Data Nonreactive: Antibodies [...] last revised on 2019. Testing performed by: [facility], [place]., [address] Blood 12/22/2021 10:5 0 AM CDT 12/22/2021 6:30 PM CDT Mojgan Cartwright MD LAB MICROBIOLOGY - GENERAL ORDER JAYSON Final Result [facility] ([place]) [address] Department of Laboratories [place] [address] * Albumin Creatinine Ratio, Urine (11/23/2021 3:00 PM COMPENSATION ASSOCIATE) Albumin Ur 620.0 mg/L IVY [facility] ([place]) Comment: Interpretive Data No reference range established. Current interpretive data was last revised 2019. Creatinine Ur 240.5 mg/dL [facility] ([place]) Comment: Interpretive Data No reference range established. Current interpretive data was last revised 2019. Albumin Creatinine Ratio, Ur See Comment 1 - 29 [facility] ([place]) Comment:Unable to calculate. Urine 11/23/2021 3:00 PM COMPENSATION ASSOCIATE 11/23/2021 4:33 PM COMPENSATION ASSOCIATE Mojgan Cartwright MD LAB URINE ORDERABLES Final Resul t Performing Organization Address [facility] Co de Phone Number [facility] ([place]) [address] Department of Laboratories [place] [address] from Last 3 Months or Most Recently Relevant to Health Maintenance Insurance [place] [employer] [facility] Member Subscriber Plan / Payer (Ef fective 2025-Present) Name:Virginia Clark Relation to Subscriber:Self Name:Virginia Clark Payer ID:[id number] (NAIC) Group ID:Not on file Type:MEDICAID RISK OTHER Address: [address] Advance Directives For more information, please contact: [phone] * Full Code (Latest Code Status on File) Date Activated Date Inactivated Comments 11/01/2024 5:17 AM 11/04/2024 6:04 PM * Full Code Date Activated Date Inactivated Comments 10/21/2018 11:13 AM 10/25/2018 5:44 PM Care Teams Credit Card Analyst Relationship Specialty Start Date End Date No, Physician PCP - General 5/21/25 Valerie Gastelum DO [address] [facility] [address] [address] Consulting Physician Cardiology 02/20/25
== END 2025-08-25 12:10 | disposition home or self-care (01) ==
LOC: CHSIMG 12:17
PROVIDERS: PCP Family Medicine; Visit Provider Family Medicine
DX: R22.1 Localized swelling, mass and lump, neck (principal)
CPT/HCPCS: 76604

== ENCOUNTER 2025-09-03 08:23 | Outpatient (CLI) | payer OTHER, SELFPAY ==
--- NOTE | ~2025-09-03 | CT_ITS ---
EXAMINATION: CT diagnostic chest w con DATE: 09/03/2025 09:44 INDICATION: RIGHT SUBCLAVIAN ARTERY LESION TECHNIQUE: Computed tomography (CT) of the chest was performed with 100 mL Omnipaque-350 intravenous contrast. Additional 3D reconstructions utilizing coronal maximum intensity projection (MIP) were performed. Automated exposure control and iterative reconstruction technique were employed. The dose-length product was 301.84 mGy-cm. COMPARISON: Ultrasound dated 08/25/2025 FINDINGS: Lungs are clear with no pulmonary infiltrates, pulmonary edema or pleural effusion. Mild cardiomegaly. Atherosclerotic coronary artery calcifications and change of prior median sternotomy and coronary artery bypass grafting. Aortic valve calcification. No pericardial effusion. Thoracic aorta is normal in caliber with no dissection. There are surgical clips along the right subclavian vein near a focal contrast filled tubular outpouching from the artery which measures 2 cm in length from the artery wall and measuring 12 mm in diameter. Differential would include pseudoaneurysm potentially an arteriotomy site. There did appear to be a striated pattern of echogenic likely foreign material associated with the outpouching on the prior ultrasound this could represent a residual stump of a prior bypass graft. Correlate with surgical history. No pathologically enlarged thoracic lymphadenopathy. Visualized upper abdomen is unremarkable. Severe thoracic and lower cervical spondylosis. Mild compression fracture along the right-sided the superior endplate of T12. IMPRESSION: 1. 2 cm long, 1.2 cm diameter tubular outpouching arising from the right subclavian artery with some adjacent surgical clips and which corresponds to the lesion of concern on prior ultrasound. Differential would include pseudoaneurysm related to prior arteriotomy or residual stump of a prior bypass graft. Correlate with surgical history. 2. No acute cardiopulmonary disease. Reviewed, dictated and finalized at location A. HEALTH NURSE LICENSED PRACTICAL IMPRESSION: 1. 2 cm long, 1.2 cm diameter tubular outpouching arising from the right subcla vian artery with some adjacent surgical clips and which corresponds to the lesi on of concern on prior ultrasound. Differential would include pseudoaneurysm re lated to prior arteriotomy or residual stump of a prior bypass graft. Correlate with surgical history. 2. No acute cardiopulmonary disease.
--- OUTSIDE RECORDS SUMMARY | 2025-09-03 08:49 | XMS_ITS | Clinical Summary ---
Author Organization [facility] [address] Address [address] [place] [address] Care Team Providers Care Electronics Technician Name Role Phone Valerie Gastelum DO Unavailable No, Physician Primary Care Provider [phone] Allergies Active Allergy Reactions Criticality Noted Date [...] 11/23/2021 Assessment & Plan (11/23/2021 3:22 PM DERRICK BUILDER): Patient recently had fit testing for stool which was normal Will get CT chest for lung cancer screening, mammogram previously ordered, patient advised to get this done as soon as possible Will also place referral for GI evaluation Screening for lung cancer 11/23/2021 Urinary frequency 11/23/2021 Assessment & Plan (11/23/2021 3:23 PM DERRICK BUILDER): Will check UA with reflex to microscopy and culture If evidence of UTI will treat as needed Screening for thyroid disorder 11/23/2021 Assessment & Plan (11/23/2021 3:29 PM DERRICK BUILDER): Will get routine lab testing today Discussed importance of getting proper vaccinations with patient including COVID vaccination. Patient will think about it Advised to see Gynecology for Pap smear Fit testing negative Will get screening CT scan for lung cancer Ophthalmology referral placed for a dilated eye exam Cough 2021 Assessment & Plan (2021 5:33 PM DERRICK BUILDER): Patient has chronic cough with strong history [...] losartan Assessment & Plan (11/23/2021 3:11 PM DERRICK BUILDER): Patient pressure high initially on presentation. Improved after patient stayed in room for bit Advised to make blood pressure log at home, may need to adjust medications depending on results Assessment & Plan (2021 5:34 PM DERRICK BUILDER): Patient has chronic hypertension controlled with losartan [...] 09/15/2021 Assessment & Plan (11/23/2021 3:24 PM DERRICK BUILDER): Records from [place] reviewed patient has MRI thoracic spine with that degenerative joint disease Patient was following with Orthopedics there but would wish to establish care with someone over here Will place referral for Orthopedics over here Assessment & Plan (2021 5:30 PM DERRICK BUILDER): Records sent over from [place] [facility] reviewed patient has back x-rays which show mild degenerative disease however no MRI present. Discussed with patient she says she definitely had an MRI recently Will obtain records of MRI Will continue Tylenol 1 g q.8 hours p.r.n. for pain Patient advised to continue ice packs as she feels these help her pain Assessment & Plan (09/15/2021 2:52 PM DERRICK BUILDER): Patient has chronic lower back pain related to trauma and recently had imaging at [facility] We will obtain medical records Will start on tylenol 1 gm Q8H PRN for pain Other constipation 09/15/2021 Assessment & Plan (11/23/2021 3:10 PM DERRICK BUILDER): Condition stable. Symptoms controlled Continue current treatment with senna and MiraLax Assessment & Plan (09/15/2021 2:51 PM DERRICK BUILDER): Chronic constipation patient unable to have bowel [...] 09/15/2021 Assessment & Plan (09/15/2021 2:54 PM DERRICK BUILDER): POC UA today did not show any [...] treatment Assessment & Plan (11/23/2021 3:26 PM DERRICK BUILDER): Condition stable. Symptoms controlled Continue current treatment with glipizide 5 mg daily Patient has significantly decreased sensation in lower extremities related to diabetes Discussed importance of proper foot care to prevent development of ulcers or infections or fractures with patient Assessment & Plan (2021 5:28 PM DERRICK BUILDER): Condition stable. Symptoms controlled Continue current treatment with glipizide Will check HbA1c today Assessment & Plan (09/15/2021 2:52 PM DERRICK BUILDER): Condition stable. Symptoms controlled per patient. Continue [...] appointment Assessment & Plan (11/23/2021 3:13 PM DERRICK BUILDER): Condition stable. Symptoms controlled Continue current treatment Will place referral for Psychiatry evaluation Assessment & Plan (09/15/2021 2:47 PM DERRICK BUILDER): Patient has been off medications since 2019 [...] atorvastatin Assessment & Plan (2021 5:31 PM DERRICK BUILDER): Condition stable. Symptoms controlled without medication Will check lipid panel today Assessment & Plan (09/15/2021 3:49 PM DERRICK BUILDER): Condition stable. Symptoms controlled Continue to monitor. [...] drink = 0.6 oz pur e alcohol) [facility] Utilities Answer Date Recorded In the past 12 months has [employer], gas, oil, or water [employer] threatened to shut off services in your [...] often do you attend chur ch or judaism services? Never 11/04/2024 Do you belong to any clubs o r organizations such as protestant groups, unions, fraternal or athletic groups, or [...] any time in the past 12 m [facility], were you homeless or living in a correction (including now)? No 11/04/2024 Personal Safety Answer Date Recorded Have you ever been in or are you currently in a harmful physical or emotional relationship or is someone making you feel afraid or unsafe? Denies 11/01/2024 Comments No Sex and Gender Information Value Date Recorded Sex Assigned at Not on file Legal Sex Female 12:54 AM DERRICK BUILDER Gender Identity Not on file Sexual Orientation Not on file Last Filed Vital Signs Vital Sign Reading Time Taken Comments Blood Pressure 129/79 11/04/2024 12:30 PM DERRICK BUILDER Pulse 59 11/04/2024 12:30 PM DERRICK BUILDER Temperature 36.4 C (97.6 F) 11/04/2024 12:30 PM DERRICK BUILDER Respiratory Rate 18 11/04/2024 12:30 PM DERRICK BUILDER Oxygen Saturation 94% 11/04/2024 12:30 PM DERRICK BUILDER Inhaled Oxygen Concentration - - Weight 74.4 kg (164 lb 0.4 oz) 11/01/2024 12:40 AM DERRICK BUILDER Height 160 cm (5' 3) 11/01/2024 12:40 AM DERRICK BUILDER Body Mass Index 29.06 11/01/2024 12:40 AM DERRICK BUILDER Plan of Treatment Health Maintenance Due Date [...] Diagnosis Comments EGFR Routine 11/04/2024 1:32 AM DERRICK BUILDER HEMOGLOBIN A1C Routine 05/03/2022 11:08 AM CDT [...] CREATININE RATIO, URINE Routine 11/23/2021 3:00 PM DERRICK BUILDER Weight loss, unintentional from Last 3 Months or Most Recently Relevant to Health Maintenance Results * (ABNORMAL) eGFR (11/04/2024 1:32 AM DERRICK BUILDER) eGFR 54(L) >=60 mL/min/1. 73 m2 Comment: [...] last reviewed 2021. Blood 11/04/2024 1:32 AM DERRICK BUILDER 11/04/2024 2:01 AM DERRICK BUILDER Becka Napoles NP LAB BLOOD ORDERABLES Final Resul t Performing Organization Address City/[facility] Co de Phone Number IVY [phone] [address] Department [place] [address] * (ABNORMAL) Hemoglobin A1c (05/03/2022 11:08 AM [...] and children were not included. (Diabetes Care 31:1493-7340, 2008). The eAG is not equivalent to a fasting glucose. Blood 05/03/2022 11:0 8 AM CDT 05/03/2022 12:15 PM CDT Mojgan Cartwright MD LAB BLOOD ORDERABLES Final Resul t Performing Organization Address City/[facility] Co de Phone Number [facility] [address] Department [place] [address] * Lipid panel (05/03/2022 11:08 AM CDT) [...] revised on 2018. HDL 54 >=40 mg/dL [facility] ([place]) Comment: Interpretive Data Ages [...] on 2018. Chol/HDL ratio 3 PATRICK Ochoa [facility] ([place]) Blood 05/03/2022 11:0 8 AM CDT 05/03/2022 12:15 PM CDT Mojgan Cartwright MD LAB BLOOD ORDERABLES Final Resul t [facility] ([place]) [address] [facility] [place] [address] * Hepatitis C antibody (12/22/2021 10:50 AM [...] revised on 2019. Testing performed by: [facility] [facility], [place]., [address] Blood 12/22/2021 10:5 0 AM CDT 12/22/2021 6:30 PM CDT Mojgan Cartwright MD LAB MICROBIOLOGY - GENERAL ORDER JAYSON Final Result [facility] ([place]) [address] Department of Laboratories [place] [address] * Albumin Creatinine Ratio, Urine (11/23/2021 3:00 PM DERRICK BUILDER) Albumin Ur 620.0 mg/L IVY [facility] ([place]) Comment: Interpretive Data No reference range established. Current interpretive data was last revised 2019. Creatinine Ur 240.5 mg/dL [facility] ([place]) Comment: Interpretive Data No reference range established. Current interpretive data was last revised 2019. Albumin Creatinine Ratio, Ur See Comment 1 - 29 [facility] ([place]) Comment:Unable to calculate. Urine 11/23/2021 3:00 PM DERRICK BUILDER 11/23/2021 4:33 PM DERRICK BUILDER Mojgan Cartwright MD LAB URINE ORDERABLES Final Resul t Performing Organization Address [facility] Co de Phone Number [facility] ([place]) [address] Department of Laboratories [place] [address] from Last 3 Months or Most Recently Relevant to Health Maintenance Insurance [place] [employer] [facility] Member Subscriber Plan / Payer (Ef fective 2025-Present) Name:Virginia Clark Relation to Subscriber:Self Name:Virginia Clark Payer ID:[id number] (NAIC) Group ID:Not on file Type:MEDICAID RISK OTHER Address: [address] Advance Directives For more information, please contact: [phone] * Full Code (Latest Code Status on File) Date Activated Date Inactivated Comments 11/01/2024 5:17 AM 11/04/2024 6:04 PM * Full Code Date Activated Date Inactivated Comments 10/21/2018 11:13 AM 10/25/2018 5:44 PM Care Teams Electronics Technician Relationship Specialty Start Date End Date No, Physician PCP - General 5/21/25 Valerie Gastelum DO [address] [facility] [address] [place] [address] Consulting Physician Cardiology 02/20/25
--- OUTSIDE RECORDS SUMMARY | 2025-09-03 08:49 | XMS_ITS | Encounter Summary ---
Author Organization [facility] Healthcare Address [address] [place] [address] Care Team Providers Care Hoisting Pile Driving Engineer Name Role Phone Valerie Gastelum DO Unavailable No, Physician Primary Care Provider [phone] Encounter Details Date Type Department Care Team (Late st Contact Info) Description 02/27/2025 Orders Only [facility] [place] Health Information Management [address] [place] [address] Scanning, Provider Social History Tobacco Use Types Packs/Day Years Used Date Smoking Tobacco: Former Cigarettes 1 51 Smokeless Tobacco: Never Comments:51 pack hx /2022-fa ther history lung cancer Alcohol Use Standard Drinks/Week Comments No 0 (1 standard drink = 0.6 oz pur e alcohol) [facility] Utilities Answer Date Recorded In the past 12 months has [employer] electric, gas, oil, or water company threatened [...] often do you attend chur ch or church services? Never 11/04/2024 Do you belong to any clubs o r organizations such as religion groups, unions, fraternal or athletic groups, or [...] any time in the past 12 m [facility], were you homeless or living in [...] on file Legal Sex Female 12:54 AM STRAWHAT INSPECTOR AND PACKER Gender Identity Not on file Sexual Orientation [...] on filedocumented in this encounter Care Teams Hoisting Pile Driving Engineer Relationship Specialty Start Date End Date No, Physician PCP - General 02/19/25 Valerie Gastelum DO [facility] [address] [place] [place] [address] Consulting Physician Cardiology 02/20/25 documented as of this encounter
[2025-09-03 08:55] LABS: Estimated Glomerular Filt Rate 39
== END 2025-09-03 08:24 | disposition home or self-care (01) ==
LOC: CHSIMG 08:28
PROVIDERS: PCP Family Medicine; Visit Provider Family Medicine
DX: I77.1 Stricture of artery (principal)
CPT/HCPCS: 71260; Q9967

== ENCOUNTER 2025-09-23 08:24 | Outpatient (CLI) | payer OTHER, SELFPAY ==
--- NOTE | ~2025-09-23 | CT_ITS ---
EXAMINATION: CTA chest DATE: 09/23/2025 09:39 INDICATION: Right subclavian artery aneurysm. TECHNIQUE: Computed tomographic angiography (CTA) of the chest was performed with 100 mL Omnipaque-350 intravenous contrast. Automated exposure control and iterative reconstruction technique were employed. The dose-length product was 653.00 mGy-cm. Maximum intensity projection 3D-reconstructions of the aorta and other arteries were constructed by the technologist on a separate workstation. COMPARISON: Chest CT 09/03/2025 FINDINGS: The lungs demonstrate septal thickening, consistent with mild pulmonary edema. No pleural effusion. Cardiomegaly is noted. There are changes of coronary artery bypass grafting. No pericardial effusion. There is no pulmonary embolus. There is calcified atherosclerosis of the aorta and many of the other arteries. There is a 2.2 x 1.0 x 1.1 cm outpouching of contrast from right subclavian artery with adjacent surgical clips. There is severe thoracic and cervical spondylosis. There are chronic compression fractures in lower thoracic spine. IMPRESSION: 1. Stable tubular outpouching of contrast from right subclavian artery with adjacent surgical clips, which may be a pseudoaneurysm or a residual stump of a bypass graft. Correlate with surgical history. Reviewed, dictated and finalized at location E. CE CLERK IMPRESSION: 1. Stable tubular outpouching of contrast from right subclavian artery with adj acent surgical clips, which may be a pseudoaneurysm or a residual stump of a by pass graft. Correlate with surgical history.
--- OUTSIDE RECORDS SUMMARY | 2025-09-23 08:33 | XMS_ITS | Encounter Summary ---
Author Organization [facility] Healthcare Address [address] [place] [address] Care Team Providers Care Rehabilitation Director Name Role Phone Valerie Gastelum DO Unavailable [phone] No, Physician Primary Care Provider [phone] Encounter Details Date Type Department Care Team (Late st Contact Info) Description 02/27/2025 Orders Only [facility] [place] [place] Health Information Management [address] [place] [phone] Scanning, Provider Social History Tobacco Use Types Packs/Day Years Used Date Smoking Tobacco: Former Cigarettes 1 51 Smokeless Tobacco: Never Comments:51 pack hx /2022-fa ther history lung cancer Alcohol Use Standard Drinks/Week Comments No 0 (1 standard drink = 0.6 oz pur e alcohol) [facility] Utilities Answer Date Recorded In the past 12 months has [employer] electric, gas, oil, or water company threatened [...] often do you attend chur ch or jehovah's witness services? Never 11/04/2024 Do you belong to any clubs o r organizations such as jainism groups, unions, fraternal or athletic groups, or [...] any time in the past 12 m [facility], were you homeless or living in a skilled nursing (including now)? No 11/04/2024 Personal Safety Answer Date Recorded Have you ever been in or are you currently in a harmful physical or emotional relationship or is someone making you feel afraid or unsafe? Denies 11/01/2024 Comments No Sex and Gender Information Value Date Recorded Sex Assigned at Not on file Legal Sex Female 12:54 AM APPAREL STOCK CHECKER Gender Identity Not on file Sexual Orientation [...] on filedocumented in this encounter Care Teams Rehabilitation Director Relationship Specialty Start Date End Date No, Physician PCP - General 02/19/25 Valerie Gastelum DO [facility] [address] [place] [address] Consulting Physician Cardiology 02/20/25 documented as of this encounter
--- OUTSIDE RECORDS SUMMARY | 2025-09-23 08:33 | XMS_ITS | Clinical Summary ---
Author Organization [facility] [place] [place] [address] [facility] Address [address] [place] [address] Care Team Providers Care Hotel Lobby Concierge Name Role Phone Valerie Gastelum DO Unavailable No, Physician Primary Care Provider [phone] Allergies Active Allergy Reactions Criticality Noted Date [...] 11/23/2021 Assessment & Plan (11/23/2021 3:22 PM DREDGE WORKER): Patient recently had fit testing for stool which was normal Will get CT chest for lung cancer screening, mammogram previously ordered, patient advised to get this done as soon as possible Will also place referral for GI evaluation Screening for lung cancer 11/23/2021 Urinary frequency 11/23/2021 Assessment & Plan (11/23/2021 3:23 PM DREDGE WORKER): Will check UA with reflex to microscopy and culture If evidence of UTI will treat as needed Screening for thyroid disorder 11/23/2021 Assessment & Plan (11/23/2021 3:29 PM DREDGE WORKER): Will get routine lab testing today Discussed importance of getting proper vaccinations with patient including COVID vaccination. Patient will think about it Advised to see Gynecology for Pap smear Fit testing negative Will get screening CT scan for lung cancer Ophthalmology referral placed for a dilated eye exam Cough 2021 Assessment & Plan (2021 5:33 PM DREDGE WORKER): Patient has chronic cough with strong history [...] losartan Assessment & Plan (11/23/2021 3:11 PM DREDGE WORKER): Patient pressure high initially on presentation. Improved after patient stayed in room for bit Advised to make blood pressure log at home, may need to adjust medications depending on results Assessment & Plan (2021 5:34 PM DREDGE WORKER): Patient has chronic hypertension controlled with losartan [...] 09/15/2021 Assessment & Plan (11/23/2021 3:24 PM DREDGE WORKER): Records from [facility] reviewed patient has MRI thoracic spine with that degenerative joint disease Patient was following with Orthopedics there but would wish to establish care with someone over here Will place referral for Orthopedics over here Assessment & Plan (2021 5:30 PM DREDGE WORKER): Records sent over from [facility] reviewed patient has back x-rays which show mild degenerative disease however no MRI present. Discussed with patient she says she definitely had an MRI recently Will obtain records of MRI Will continue Tylenol 1 g q.8 hours p.r.n. for pain Patient advised to continue ice packs as she feels these help her pain Assessment & Plan (09/15/2021 2:52 PM DREDGE WORKER): Patient has chronic lower back pain related to trauma and [facility] We will obtain medical records Will start on tylenol 1 gm Q8H PRN for pain Other constipation 09/15/2021 Assessment & Plan (11/23/2021 3:10 PM DREDGE WORKER): Condition stable. Symptoms controlled Continue current treatment with senna and MiraLax Assessment & Plan (09/15/2021 2:51 PM DREDGE WORKER): Chronic constipation patient unable to have bowel [...] 09/15/2021 Assessment & Plan (09/15/2021 2:54 PM DREDGE WORKER): POC UA today did not show any [...] treatment Assessment & Plan (11/23/2021 3:26 PM DREDGE WORKER): Condition stable. Symptoms controlled Continue current treatment with glipizide 5 mg daily Patient has significantly decreased sensation in lower extremities related to diabetes Discussed importance of proper foot care to prevent development of ulcers or infections or fractures with patient Assessment & Plan (2021 5:28 PM DREDGE WORKER): Condition stable. Symptoms controlled Continue current treatment with glipizide Will check HbA1c today Assessment & Plan (09/15/2021 2:52 PM DREDGE WORKER): Condition stable. Symptoms controlled per patient. Continue [...] appointment Assessment & Plan (11/23/2021 3:13 PM DREDGE WORKER): Condition stable. Symptoms controlled Continue current treatment Will place referral for Psychiatry evaluation Assessment & Plan (09/15/2021 2:47 PM DREDGE WORKER): Patient has been off medications since 2019 [...] atorvastatin Assessment & Plan (2021 5:31 PM DREDGE WORKER): Condition stable. Symptoms controlled without medication Will check lipid panel today Assessment & Plan (09/15/2021 3:49 PM DREDGE WORKER): Condition stable. Symptoms controlled Continue to monitor. [...] drink = 0.6 oz pur e alcohol) [facility] Utilities Answer Date Recorded In the past 12 months has [employer], gas, oil, or water [employer] threatened to shut off services in your [...] often do you attend chur ch or zoroastrianism services? Never 11/04/2024 Do you belong to any clubs o r organizations such as gnosticism groups, unions, fraternal or athletic groups, or [...] time in the past 12 m [facility], were you homeless or living in a [...] on file Legal Sex Female 12:54 AM DREDGE WORKER Gender Identity Not on file Sexual Orientation Not on file Last Filed Vital Signs Vital Sign Reading Time Taken Comments Blood Pressure 129/79 11/04/2024 12:30 PM DREDGE WORKER Pulse 59 11/04/2024 12:30 PM DREDGE WORKER Temperature 36.4 C (97.6 F) 11/04/2024 12:30 PM DREDGE WORKER Respiratory Rate 18 11/04/2024 12:30 PM DREDGE WORKER Oxygen Saturation 94% 11/04/2024 12:30 PM DREDGE WORKER Inhaled Oxygen Concentration - - Weight 74.4 kg (164 lb 0.4 oz) 11/01/2024 12:40 AM DREDGE WORKER Height 160 cm (5' 3) 11/01/2024 12:40 AM DREDGE WORKER Body Mass Index 29.06 11/01/2024 12:40 AM DREDGE WORKER Plan of Treatment Health Maintenance Due Date [...] Diagnosis Comments EGFR Routine 11/04/2024 1:32 AM DREDGE WORKER HEMOGLOBIN A1C Routine 05/03/2022 11:08 AM CDT [...] CREATININE RATIO, URINE Routine 11/23/2021 3:00 PM DREDGE WORKER Weight loss, unintentional from Last 3 Months or Most Recently Relevant to Health Maintenance Results * (ABNORMAL) eGFR (11/04/2024 1:32 AM DREDGE WORKER) eGFR 54(L) >=60 mL/min/1. 73 m2 Comment: [...] last reviewed 2021. Blood 11/04/2024 1:32 AM DREDGE WORKER 11/04/2024 2:01 AM DREDGE WORKER Becka Napoles NP LAB BLOOD ORDERABLES Final Resul t Performing Organization Address City/[facility] Co de Phone Number [phone] [address] Department [place] [address] * (ABNORMAL) Hemoglobin A1c (05/03/2022 11:08 AM CDT) Hgb A1C 5.9(H) 4.0 - 5.6 % [facility] ([place]) Estimated Average Glucose 123 mg/dL [facility] ([place]) Comment: The ADA recommends reporting an estimated Average Glucose (eAG) with all Hemoglobin A1c results using the equation derived from a study of 507 normal and diabetic adults. Minority populations were underrepresented and children were not included. (Diabetes Care 31:1012-5169, 2008). The eAG is not equivalent to a fasting glucose. Blood 05/03/2022 11:0 8 AM CDT 05/03/2022 12:15 PM CDT Mojgan Cartwright MD LAB BLOOD ORDERABLES Final Resul t Performing Organization Address City/[facility] Co de Phone Number [facility] ([place]) [address] [place] [address] * Lipid panel (05/03/2022 11:08 AM CDT) Cholesterol 176 30 - 199 mg/dL [facility] [...] revised on 2018. HDL 54 >=40 mg/dL [facility] ([place]) Comment: Interpretive Data Ages < [...] Cholesterol 122 mg/dL [facility] ([place]) Comment: Interpretive Data [...] on 2018. Chol/HDL ratio 3 PATRICK Ochoa [facility] ([place]) Blood 05/03/2022 11:0 8 AM CDT 05/03/2022 12:15 PM CDT Mojgan Cartwright MD LAB BLOOD ORDERABLES Final Resul t [facility] ([place]) [address] [facility] [place] [address] * Hepatitis C antibody (12/22/2021 10:50 AM CDT) Hep C Ab Nonreactive Nonreactive [facility] [place]) Comment: Interpretive Data [...] last revised on 2019. Testing performed by: [facility], [facility] [facility], [place]., [address] Blood 12/22/2021 10:5 0 AM CDT 12/22/2021 6:30 PM CDT Mojgan Cartwright MD LAB MICROBIOLOGY - GENERAL ORDER JAYSON Final Result [facility] ([place]) [address] Department of Laboratories [place] [address] * Albumin Creatinine Ratio, Urine (11/23/2021 3:00 PM DREDGE WORKER) Albumin Ur 620.0 mg/L [facility] ([place]) Comment: Interpretive Data No reference range established. Current interpretive data was last revised 2019. Creatinine Ur 240.5 mg/dL [facility] ([place]) Comment: Interpretive Data No reference range established. Current interpretive data was last revised 2019. Albumin Creatinine Ratio, Ur See Comment 1 - 29 [facility] ([place]) Comment:Unable to calculate. Urine 11/23/2021 3:00 PM DREDGE WORKER 11/23/2021 4:33 PM DREDGE WORKER Mojgan Cartwright MD LAB URINE ORDERABLES Final Resul t Performing Organization Address [facility] Co de Phone Number [facility] ([place]) [address] Department of Laboratories [place] [address] from Last 3 Months or Most Recently Relevant to Health Maintenance Insurance [place] [facility] Member Subscriber Plan / Payer (Ef fective 2025-Present) Name:Virginia Clark Relation to Subscriber:Self Name:Virginia Clark Payer ID:[id number] (NAIC) Group ID:Not on file Type:MEDICAID RISK OTHER Address: [address] Advance Directives For more information, please contact: [phone] * Full Code (Latest Code Status on File) Date Activated Date Inactivated Comments 11/01/2024 5:17 AM 11/04/2024 6:04 PM * Full Code Date Activated Date Inactivated Comments 10/21/2018 11:13 AM 10/25/2018 5:44 PM Care Teams Hotel Lobby Concierge Relationship Specialty Start Date End Date No, Physician PCP - General 5/21/25 Valerie Gastelum DO [address] [facility] [address] [place] [address] Consulting Physician Cardiology 02/20/25
[2025-09-23 08:57] LABS: Estimated Glomerular Filt Rate 46
== END 2025-09-23 08:25 | disposition home or self-care (01) ==
LOC: CHSIMG 08:27
PROVIDERS: PCP Family Medicine; Visit Provider Family Medicine
DX: I72.8 Aneurysm of other specified arteries (principal)
CPT/HCPCS: 71275; Q9967